=== PATIENT | female | born 1955 | race Caucasian/White ===

== ENCOUNTER 2017-09-30 13:13 | Inpatient (IN) | payer OTHER, SELFPAY ==
[2017-08-14 13:04] VITALS: BMI 24.0
[2017-09-30] VITALS (12 sets, daily range): BP systolic 97–142; BP diastolic 49–79; PULSE 101–130; RESP 16–20; TEMP 36.9–39.2; O2SAT 92–96; BMI 25.7; BMI 25.3
--- NOTE | 2017-09-30 13:22 | EKG12_ITS ---
Test Reason : SOB Blood Pressure : / mmHG Vent. Rate : 112 BPM Atrial Rate : 112 BPM P-R Int : 128 ms QRS Dur : 086 ms QT Int : 304 ms P-R-T Axes : 070 065 075 degrees QTc Int : 414 ms Sinus tachycardia Otherwise normal ECG Confirmed by DUANE SMITH ([id number]), development editor GREGORIA ALEMAN ([id number]) on 10/03/2017 11:57:28 AM Referred By: LEIGHANN Confirmed By:DUANE SMITH
--- NOTE | 2017-09-30 13:35 | ED.DCSUM_ITS ---
- ER Visit Summary Date of Service: 09/30/17 Chief Complaint: Bilateral pneumonia, influenza A, dehydration History of Present Illness: The patient is a 62 F who was seen by Porsche alatorre today and had a positive influenza A rapid screen, chest x-ray that reveals a right middle lobe infiltrate and a lingular infiltrate. She also was tachycardic and received 1.5 L of normal saline. Patient states initial illness started in August. Last week she completed a 5 day course of azithromycin. She now reports fever, chills, myalgias and arthralgias that started yesterday. She does complain of headache without photophobia sips of her neck. She denies rash. She denies any nausea, vomiting or diarrhea. She denies dysuria, frequency, urgency or hematuria. She does have a history of asthma. She has been on prednisone the last 3-6 months. She has been using her rescue inhaler and nebulizer more frequently than normal. Physical Examination: Patient is tachycardic febrile and tachypnic on my exam. Pulse ox at rest is 92% on room air. She appears ill. HEENT is remarkable for mild clear nasal congestion and boggy nasal mucosa. TMs are pearly white phlegm X noted. Posterior pharynx minimal erythema without exudate. Uvula midline. Trachea midline without stridor. Heart is rapid and regular without murmur, gallop or rub. Lungs reveal wheezing bilaterally with increased x-ray phase and abnormal breath sounds on the right anteriorly. Abdomen is soft nontender. There is no CVA tenderness noted. There is no asymmetry, swelling, discoloration, leg vein distention, palpable cords or tenderness along the distribution of the deep venous system. Neuro exam is nonfocal. Test Results: Outpatient blood work reveals a normal white count and electrolyte panel. Rapid influenza screen is positive for type a influenza. Chest x-ray reveals a right middle lobe infiltrate and a lingular infiltrate. Lactate is 0.9. Emergency Department Course and Treatment: Patient meets sepsis criteria and since she has bilateral infiltrates meets criteria for full admission. She will receive a DuoNeb followed by multiple albuterol treatments. Since she has received prednisone the last 3-6 months she was given a dose of Solu-Medrol, 125 mg IV push. 650 mg of Tylenol for her fever. Blood cultures were ordered as well as lactate. Based on her allergies she was treated with 1 g of Rocephin and 500 mg of azithromycin. She also received Tamiflu 75 mg. Treatment Plan: Workup for sepsis and antibiotics for bilateral infiltrate. Because she is wheezing with history of asthma she was treated with the aerosols. Disposition: Admit to the hospital Impression: 1. Bilobar pneumonia, right middle lobe and lingula 2. Exacerbation of asthma secondary #1 3. Sepsis 4. Sinus tachycardia documented on monitor 5. Influenza type A This note was generated with MadeiraMadeira dictation software. It may contain incorrect words, spelling, and punctuation that were not noted in review of the chart prior to signing ED Disposition - Plan for ED Patient: Chief Complaint: Shortness of Breath Referrals: Genesis Baldwin DO [Primary Care Provider] -
[2017-09-30] MEDS: Albuterol 2.5 MG/3 ML VIAL.NEB. INHALATION ×3 (13:38)
[2017-09-30] MEDS: Ipratropium/Albuterol Sulfate 3 ML AMPUL.NEB INHALATION ×3 (13:38→23:14)
[2017-09-30] MEDS: Oseltamivir Phosphate 75 MG Capsule PO ×2 (13:47→21:17)
[2017-09-30] MEDS: MethylPREDNISolone 125 MG/2 ML Vial IV (13:47)
[2017-09-30] MEDS: Acetaminophen 325 MG Tablet 650 MG PO (13:53)
[2017-09-30 14:14] LABS: Lactic Acid 0.9 mmol/L (0.4-2.0)
[2017-09-30] MEDS: Ceftriaxone 1 GM/50 ML BAG IV (14:18)
--- NOTE | 2017-09-30 15:26 | HP.PCM_ITS ---
Problem List (1) Sepsis Status: Acute (2) Influenza Status: Acute (3) Aromatase inhibitor use Status: Chronic (4) Cancer of left female breast Status: Chronic Qualifiers: (5) Asthma Status: Chronic Qualifiers: (6) Osteoporosis Status: Chronic History of Present Illness Date of Admission: 09/30/17 Chief Complaint: Shortness of breath, myalgias. The patient is a 62 year old F [] Over the past month patient has been treated for infections, pulmonary with antibiotics and prednisone. Patient was doing well up until yesterday morning where she had had fevers of 101 Fahrenheit, chills, myalgias, headache. Sore primary care doctor and was tested positive for the flu. Patient was sent to the emergency room as patient was having also dyspnea on exertion. Patient was tachycardic in the emergency room. Patient had chest x-ray that was concerning for pneumonia and patient was started on Rocephin, azithromycin, received Tamiflu, aerosols and Solu-Medrol. Patient stated that she had the flu shot this year. Past Medical History Past Medical History (Chronic Problems): Chronic Problems (Last Reviewed 09/18/17 @ 08:33 by Perla Rojo) Aromatase inhibitor use (Chronic) Cancer of left female breast (Chronic) Osteoporosis (Chronic) Asthma (Chronic) Allergies ampicillin Allergy (Verified 09/30/17 13:16) Other cefaclor [From Ceclor] Allergy (Verified 09/30/17 13:16) Other ciprofloxacin [From Cipro] Allergy (Verified 09/30/17 13:16) Anaphylaxis ciprofloxacin HCl [From Cipro] Allergy (Verified 09/30/17 13:16) Anaphylaxis Penicillins Allergy (Verified 09/30/17 13:16) Other shellfish derived Allergy (Verified 09/30/17 13:16) Anaphylaxis Home Medications: Ambulatory Orders Medication Instructions Recorded Dexlansoprazole [Dexilant] 30 mg PO PRN PRN 04/27/16 Montelukast Sodium [Singulair] 10 mg PO QHS 04/27/16 Paroxetine HCl [Paxil] 20 mg PO DAILY 04/27/16 Albuterol Inhaler [Ventolin Hfa] 1 - 2 puff INHALATION Q4H PRN PRN 07/01/17 Denosumab [Prolia] 60 mg SQ QMONTH 07/01/17 Fluticasone 0.05% [Flonase Nasal 1 spray NASAL BID 07/01/17 [place]] Bifidobacterium Infantis [Align] 4 mg PO DAILY 07/24/17 Calcium Phosphate Trib/Vit D3 1 ea PO DAILY 07/24/17 [Citracal + D3 Gummies] Cetirizine HCl [Zyrtec] 10 mg PO DAILY 07/24/17 Anastrozole [Arimidex] 1 mg PO DAILY 09/30/17 Aspirin [Aspirin, Baby] 81 mg PO DAILY@0800 09/30/17 Budesonide/Formoterol 80-4.5 2 puff INHALATION BID 09/30/17 [Symbicort 80-4.5 Mcg Inhaler] Ezetimibe [Zetia] 10 mg PO DAILY 09/30/17 Prednisone [Prednisone] 09/30/17 Surgical History: - - Left lumpectomy Psychiatric History: No pertinent psych hx Smoking Status: Never smoker - *Family History Maternal History Items: Clotting Disorder, - - Venous thromboembolic disease Sibling History Items: Clotting Disorder, - - Venous thromboembolic disease in her sister Review of Systems Constitutional: Reports: Chills, Fever, Malaise, Weakness Eyes: Denies: Blurred vision, Double vision HEENT: Reports: Ear Pain, Head Aches, Sinus Congestion Cardiovascular: Denies: Chest Pain, Palpitations Respiratory: Reports: Shortness of breath upon exertion. Denies: Cough Gastrointestinal: Denies: Abdominal Pain, Nausea, Vomiting Genitourinary: Denies: Dysuria Musculoskeletal: Denies: Joint Pain, Joint Tenderness Skin: Denies: Rash, Wounds Neurological: Denies: Numbness, Tingling, Focal weakness Psychiatric: Denies: Anxiety, Depression, Homicidal Ideations, Suicidal Ideations Hematologic/ Lymphatic: Denies: Easy Bruising, Easy Bleeding, Hx of blood clot VTE Information - Inpt Only VTE Present on Admission: No VTE Pharm Prophylaxis ordered?: Yes Patient Problems: Active and Suspected Problems (Last Reviewed 09/18/17 @ 08:33 by Perla Rojo) Sepsis (Acute) Influenza (Acute) - Physical Exam General: Alert, Cooperative, No apparent distress HEENT: Atraumatic, Normocephalic, - - No sinus tenderness Oral: Moist Mucosa, No Gingival or Mucosal Lesions/ Ulcerations Neck: No Nodes, Thyroid Normal Size and Texture Lungs: Clear to auscultation, Normal air movement, No rhonchi, No wheeze Cardiovascular: Regular rate, Regular Rhythm, Normal S1, Normal S2, No murmurs Abdomen: Bowel Sounds Present, Soft, Non Tender, Non-Distended, No Hepato- splenomegaly Extremities: No edema, No Calf Tenderness Skin: No rashes, No breakdown Musculoskeletal: No Tenderness to Palpation of Joints or Extremities, No Muscle Wasting Neurological: Muscle tone normal, Gait narrow based and stable Psych/Mental Status: Normal Affect, Appropriate Vital Signs Temp Pulse Resp BP Pulse Ox 39.2 C H 124 H 20 H 106/79 93 09/30/17 15:02 09/30/17 15:02 09/30/17 15:02 09/30/17 15:02 09/30/17 15:02 Oxygen Delivery Method Room Air Weight: 67.9 kg Body Mass Index (BMI) 25.7 Laboratory Tests Past 24 Hrs 09/30/17 13:41 Lactic Acid 0.9 Chest x-ray personally reviewed and showed no infiltrate on my evaluation. Some of the chest x-ray from August of last year. Earlier lab work White count 7.1, hemoglobin 13.2. Platelets 171. Sodium 138, potassium 4.2, creatinine 0.72. Assessment/Plan Active and Suspected Problems (Last Reviewed 09/18/17 @ 08:33 by Perla Rojo) Sepsis (Acute) Influenza (Acute) 1. Sepsis Most likely due to the influenza the patient has but there is concern for infiltrate on the chest x-ray though I do not clearly see that and patient's exam is pretty unremarkable for pneumonia. Patient be treated empirically for pneumonia but will follow-up cultures, blood cultures were drawn in the emergency room but I will send a sputum culture and strep antigens and Legionella antigens. If respiratory workup comes back unremarkable then would recommend discontinue the antibiotics and continue the Tamiflu. Patient receive IV fluids. Patient is not in severe sepsis or septic shock. 2. Influenza I do not have tight but I presume it is A. Continue with Tamiflu for a total of 5 days. Patient received a dose in the emergency room. 3. Asthma No audible wheezing at this time. Patient did receive Solu-Medrol in the emergency room. Allergies have the patient continue with the 40 mg daily of prednisone for 5 days. Bronchodilators 4. Breast cancer Status post lumpectomy Follow-up with Dr. Rivas Patient on aromatase inhibitor. 5. DVT proph: LMWH Code Visit Inpatient E&M: 07110 Init Hosp L3
[2017-09-30] MEDS: 0.9% Normal Saline 1,000 ML 150 ML IV (16:55)
[2017-09-30] MEDS: Ondansetron 4 MG/2 ML Vial IV (17:01)
[2017-09-30] MEDS: Budesonide Respules 0.5 MG/2 ML AMPUL.NEB. INHALATION (19:50)
[2017-09-30] MEDS: Fluticasone 0.05% 1 SPRAY NASAL.SRY NASAL (21:16)
[2017-09-30] MEDS: guaiFENesin 600 MG Tablet 1200 MG PO (21:17)
[2017-09-30] MEDS: Montelukast 10 MG Tablet PO (21:17)
[2017-09-30] MEDS: CLARIFY ORDER 1 EACH NOTE (21:20)
[2017-10-01] VITALS (11 sets, daily range): BP systolic 94–114; BP diastolic 52–92; PULSE 83–100; RESP 18–24; TEMP 36.6–37.4; O2SAT 96–98
[2017-10-01] MEDS: 0.9% Normal Saline 1,000 ML 150 ML IV
[2017-10-01] MEDS: Ipratropium/Albuterol Sulfate 3 ML AMPUL.NEB INHALATION ×5 (03:29→22:50)
[2017-10-01 07:10] LABS: Absolute Lymphocyte Count 0.49 X10^3/ul (0.83-4.51); Absolute Neutrophil Count 4.5 X10^3/uL (2.0-7.7); Hematocrit 33.3 % (37-47); Hemoglobin 10.8 g/dl (12.0-15.0); Lymphocyte # 0.49 X10^3/ul (4.0); Lymphocyte % 8.2 % (19-41); Mean Corp Hgb Conc 32.4 g/gl (32-36); Mean Corpuscular Hgb 29.7 pg (27.0-32.0); Mean Corpuscular Volume 91.5 fL (81-99); Mean Platelet Vol. 10.2 fl (6.2-12.0); Monocyte# 0.92 X10^3/uL; Monocyte% 15.4 % (0-10); Neutrophil # 4.54 X10^3/uL (2.7-7.7); Neutrophil % 76.2 % (47-70); Platelet Count 134 K/mm3 (150-450); RBC Distribution Width CV 14.5 % (11.6-14.6); RBC Distribution Width SD 48.8 fl (35.1-43.9); Red Blood Count 3.64 M/mm3 (4.2-5.4)
[2017-10-01 07:11] LABS: Differential Indicated SCAN CRITERIA MET; POSITIVE COUNT NO; POSITIVE DIFFERENTIAL YES; POSITIVE MORPHOLOGY NO
[2017-10-01 07:19] LABS: Anion Gap 10 (5-15); BUN 10 mg/dL (7-18); BUN/Creat Ratio 14.9 RATIO (10-20); Calcium,Total 7.4 mg/dL (8.5-10.1); Chloride 115 mmol/L (98-107); Creatinine, Serum 0.67 mg/dL (0.55-1.02); EST Glomerular Filtration Rate 94 mL/min (>60); Est Glom Filt Rate - Afr Amer 113 mL/min (>60); Estimated Creatinine Clearance 73.25 ml/min; Glucose 104 mg/dL (70-110); Potassium 3.5 mmol/L (3.5-5.1); Sodium Level 144 mmol/L (136-145)
[2017-10-01] MEDS: Budesonide Respules 0.5 MG/2 ML AMPUL.NEB. INHALATION (07:28)
[2017-10-01] MEDS: guaiFENesin 600 MG Tablet 1200 MG PO ×2 (08:04→20:01)
[2017-10-01] MEDS: Aspirin 81 MG TAB.CHEW PO (08:04)
[2017-10-01] MEDS: Oseltamivir Phosphate 75 MG Capsule PO ×2 (08:04→20:02)
[2017-10-01] MEDS: Anastrozole 1 MG Tablet PO (08:05)
[2017-10-01] MEDS: Enoxaparin 40 MG/0.4 ML Syringe SC (08:05)
[2017-10-01] MEDS: Loratadine 10 MG Tablet PO (08:05)
[2017-10-01] MEDS: Ezetimibe 10 MG Tablet PO (08:05)
[2017-10-01] MEDS: Calcium Carb/Vitamin D 1 TABLET Tablet PO (08:05)
[2017-10-01] MEDS: Fluticasone 0.05% 1 SPRAY NASAL.SRY NASAL ×2 (08:06→20:02)
[2017-10-01 08:11] LABS: Allen Test POS; Base Excess -2 mmol/L (-2 to +2); Bicarbonate 21.4 mmol/L (22-26); Blood Gas Specimen Type ART; O2 Delivery Device Room Air; PO2 68 mmHG (75-100); SITE R Brachial; SO2 95 % (95-99); Time Given 810; Total Carbon Dioxide 22 mmol/L; pCO2 28.2 mmHg (35-45); pH 7.49 (7.35-7.45)
[2017-10-01 08:28] LABS: AST(SGOT) 18 U/L (15-37); Alanine Aminotransfer ALT/SGPT 25 U/L (12-78); Albumin, Serum 2.5 g/dL (3.4-5.0); Alkaline Phosphatase 40 U/L (45-117); Bilirubin, Direct < 0.05 mg/dL (0.00-0.30); Magnesium 2.1 mg/dL (1.6-2.6); Phosphorus 2.1 mg/dL (2.5-4.9); Protein, Total 5.5 g/dL (6.4-8.2)
[2017-10-01] MEDS: Ceftriaxone 1 GM/50 ML BAG IV (10:36)
[2017-10-01] MEDS: 0.9% NaCl IVPB Med Flush (250 mL) 15 ML IV (10:36)
--- NOTE | 2017-10-01 10:46 | PCM.PROGNOTE ---
Patient Problems: Active and Suspected Problems (Last Reviewed 09/18/17 @ 08:33 by Perla Rojo) Sepsis (Acute) Influenza (Acute) Subjective: Patient is a 62-year-old female with a past medical history of breast cancer on aromatase, asthma and osteoporosis who was sent to the hospital by her primary care physician after she tested positive for influenza in the office. She complained of fevers, shaking chills, myalgias, arthralgias and headache. Her symptoms started on 09/29/2017. Her cough is dry/nonproductive. Significant lab in the emergency room was a white blood cell count of 6.0 with 76% neutrophils. Hemoglobin was decreased at 10.8 and platelets were low at 134,000. Serum bicarb was low at 19 and phosphorus was low at 2.1. Lactic acid was normal. LFTs are unremarkable. Chest x-ray showed bilateral patchy infiltrates. He was admitted to the hospital with a diagnosis of influenza and possible superimposed bacterial pneumonia. She was started on Tamiflu, Rocephin and azithromycin. T-max was 102.6?F on 09/20/2017. Current temp is 99.1. Vital signs are stable. ABG done on room air shows a pH of 7.49, PCO2 of 28 and a oxygen saturation of 95%. Patient was tachypneic at the time of the ABG. She was placed on 2 L of nasal O2 and her shortness of breath has improved. He denies nausea, vomiting, diarrhea, abdominal pain today. She did have emesis on 09/30/2017. Streptococcal and legionella antigens were negative. - Physical Exam General: Oriented x3, Cooperative, Well developed, Well nourished, - - Appears very fatigued and looks ill HEENT: Atraumatic, PERRLA, EOMI, Normocephalic Oral: Dry Mucosa Neck: Supple, No JVD, No Nuchal Rigidity, Trachea Midline Lungs: - - Coarse crackles in both lung bases rare expiratory wheeze Cardiovascular: Regular rate, Regular Rhythm, Normal S1, Normal S2, No murmurs, No rub noted, No Gallop Abdomen: Bowel Sounds Present, Soft, Non Tender, Non-Distended Extremities: No clubbing, No cyanosis, No edema Skin: No rashes Neurological: Cranial nerves II-XII grossly intact, Neuro grossly intact Psych/Mental Status: Normal Affect, Appropriate Vital Signs Temp Pulse Resp BP Pulse Ox 99.1 F 90 18 100/52 L 98 10/01/17 10:33 10/01/17 10:33 10/01/17 10:33 10/01/17 10:33 10/01/17 10:33 Oxygen Flow Rate 2 Oxygen Delivery Method Nasal Cannula Weight: 147 lb 11.2 oz Body Mass Index (BMI) 25.3 Intake and Output for Last 24 Hours 09/29/17 09/30/17 10/01/17 23:59 23:59 23:59 Intake Total 1999 Balance 1999 Microbiology Past 72 Hours 09/30/17 19:30 Legionella Antigen - Final Urine, Clean Catch 09/30/17 19:30 Streptococcus pneumoniae Antigen (M - Final Urine, Clean Catch Laboratory Tests Past 24 Hrs 10/01/17 10/01/17 10/01/17 06:30 06:30 06:30 WBC 6.0 RBC 3.64 L Hgb 10.8 L Hct 33.3 L MCV 91.5 MCH 29.7 MCHC 32.4 RDW 14.5 RDW Differential 48.8 H Plt Count 134 L MPV 10.2 Immature Gran % (Auto) 0.200 Neut % (Auto) 76.2 H Lymph % (Auto) 8.2 L Osborne % (Auto) 15.4 H Eos % (Auto) 0.0 Baso % (Auto) 0.0 Absolute Neuts (auto) 4.5 Absolute Lymphs (auto) 0.49 L Total Counted Not Reportable Specimen Type Sample Site pH Bicarbonate Actual POC Total CO2 Base Excess O2 Saturation ABG pCO2 ABG pO2 Timothy Test O2 Delivery Device Blood Gas Notified Whom Blood Gas Notified Time Sodium 144 Potassium 3.5 Chloride 115 H Carbon Dioxide 19.0 L Anion Gap 10 BUN 10 Creatinine 0.67 Estim Creat Clear Calc 73.25 Est GFR (MDRD) Af Amer 113 Est GFR (MDRD) Non-Af 94 BUN/Creatinine Ratio 14.9 Glucose 104 Calcium 7.4 L Phosphorus 2.1 L Magnesium 2.1 Total Bilirubin 0.10 L Direct Bilirubin < 0.05 AST 18 ALT 25 Alkaline Phosphatase 40 L Total Protein 5.5 L Albumin 2.5 L Globulin 3.0 10/01/17 08:08 WBC RBC Hgb Hct MCV MCH MCHC RDW RDW Differential Plt Count MPV Immature Gran % (Auto) Neut % (Auto) Lymph % (Auto) Osborne % (Auto) Eos % (Auto) Baso % (Auto) Absolute Neuts (auto) Absolute Lymphs (auto) Total Counted Specimen Type ART Sample Site R Brachial pH 7.49 H Bicarbonate Actual 21.4 L POC Total CO2 22 Base Excess -2 O2 Saturation 95 ABG pCO2 28.2 L ABG pO2 68 L Timothy Test POS O2 Delivery Device Room Air Blood Gas Notified Whom HOSP Blood Gas Notified Time 810 Sodium Potassium Chloride Carbon Dioxide Anion Gap BUN Creatinine Estim Creat Clear Calc Est GFR (MDRD) Af Amer Est GFR (MDRD) Non-Af BUN/Creatinine Ratio Glucose Calcium Phosphorus Magnesium Total Bilirubin Direct Bilirubin AST ALT Alkaline Phosphatase Total Protein Albumin Globulin Assessment/Plan Active and Suspected Problems (Last Reviewed 09/18/17 @ 08:33 by Perla Rojo) Sepsis (Acute) Influenza (Acute) Impressions 1. Influenza A with viral pneumonia 2. Respiratory alkalosis secondary to tachypnea....... tachypnea resolved with application of oxygen 3. Acute exacerbation asthma 4. Hypophosphatemia 5. History of breast cancer-on an aromatase 6. Anemia - acute - possibly due to IV fluids given in the ER. 7. Thrombocytopenia-likely secondary to acute viral illness Continue Tamiflu Discontinue Rocephin as this is likely a viral pneumonia. continue Azithromycin for 3 doses Continue prednisone 40 mg daily and aerosolized bronchodilators. Supplement phosphorus Continue IV fluids until her appetite improves Recheck lab in the a.m. Will need an ambulatory pulse ox on room air prior to discharge Code Visit Inpatient E&M: 69334 Subs Hosp L2
[2017-10-01] MEDS: Lactated Ringers 1,000 ML 75 ML IV (11:37)
--- NOTE | 2017-10-01 12:00 | CASEMGMT ---
Face to Face with patient for initial transition planning/care coordination assessment. RN CM introduced self and role at [facility], pt voices understanding and consents to assessment at this time. Pt A/O x4 at this time and answers all questions appropriately at this time. Care providers, pharmacy, and demographics verified. See attached link. Advised pt to ask for CM if any further questions/concerns/needs arise, voices understanding. PLAN: Home with spouse.
--- NOTE | 2017-10-01 14:42 | CHAPLAIN ---
Type of Pastoral Visit _x__ Initial Visit ___ Follow-up Visit ___ On-call Visit ___ General Patient Visit ___ Spiritual Assessment ___ Family Conference ___ Bereavement ___ Rapid Response ___ Code Blue ___ Other (describe below) Pastoral Care Referral From _x__ Patient ___ Family ___ Nurse ___ Physician ___ Seismograph Supervisor ___ Spray Cementer ___ Other (describe below) Sacrament/Intervention _x__ Active listening ___ Anointing ___ Mandaeism ___ Bereavement ___ Communion ___ Jamila exploration ___ ___ Life review _x__ Prayer ___ Reconciliation ___ Sacrament of Sick ___ Supportive presence ___ Wedding ___ Other (describe below) Pastoral Comments
--- NOTE | 2017-10-01 15:13 | CPS ---
PEP THERAPY DONE ON OWN
[2017-10-01] MEDS: Albuterol 2.5 MG/3 ML VIAL.NEB. INHALATION (17:41)
--- NOTE | 2017-10-01 19:20 | EKG12_ITS ---
Test Reason : CP Blood Pressure : / mmHG Vent. Rate : 083 BPM Atrial Rate : 083 BPM P-R Int : 134 ms QRS Dur : 084 ms QT Int : 360 ms P-R-T Axes : 063 057 053 degrees QTc Int : 423 ms Normal sinus rhythm Normal ECG When compared with ECG of 30-SEP-2017 13:39, MANUAL COMPARISON REQUIRED, DATA IS UNCONFIRMED Confirmed by DUANE SMITH ([id number]), sports editor GREGORIA ALEMAN ([id number]) on 10/10/2017 1:40:35 PM Referred By: DR CHRISTIANSON Confirmed By:DUANE SMITH
[2017-10-01] MEDS: Acetaminophen 325 MG Tablet 650 MG PO (20:01)
[2017-10-01] MEDS: Magnesium Hydroxide 30 ML UDC PO (20:01)
[2017-10-01] MEDS: Montelukast 10 MG Tablet PO (20:02)
[2017-10-02] VITALS (8 sets, daily range): BP systolic 95–100; BP diastolic 57–63; PULSE 76–95; RESP 16–18; TEMP 36.6–36.7; O2SAT 0–100
[2017-10-02] MEDS: Lactated Ringers 1,000 ML 75 ML IV (01:27)
--- NOTE | 2017-10-02 01:41 | NURSING ---
OXYGEN LEVEL WHILE WALKING AND AFTER WAS 97% ON RA
[2017-10-02 06:43] LABS: Hematocrit 32.2 % (37-47); Hemoglobin 10.5 g/dl (12.0-15.0)
[2017-10-02 07:04] LABS: Anion Gap 9 (5-15); BUN 13 mg/dL (7-18); BUN/Creat Ratio 25.9 RATIO (10-20); Calcium,Total 7.8 mg/dL (8.5-10.1); Chloride 112 mmol/L (98-107); EST Glomerular Filtration Rate 131 mL/min (>60); Est Glom Filt Rate - Afr Amer 159 mL/min (>60); Estimated Creatinine Clearance 98.16 ml/min; Glucose 83 mg/dL (70-110); Phosphorus 3.1 mg/dL (2.5-4.9); Potassium 4.3 mmol/L (3.5-5.1); Sodium Level 145 mmol/L (136-145)
[2017-10-02] MEDS: Ipratropium/Albuterol Sulfate 3 ML AMPUL.NEB INHALATION ×3 (07:05→15:36)
[2017-10-02] MEDS: Budesonide Respules 0.5 MG/2 ML AMPUL.NEB. INHALATION (07:05)
[2017-10-02] MEDS: Calcium Carb/Vitamin D 1 TABLET Tablet PO (08:04)
[2017-10-02] MEDS: Aspirin 81 MG TAB.CHEW PO (08:04)
--- NOTE | 2017-10-02 11:40 | PCM.DC ---
- Discharge Diagnoses Current Active Problems: Current Active and Chronic Problems (Last Reviewed 09/18/17 @ 08:33 by Perla Rojo) Sepsis (Acute) Influenza (Acute) You will use the following diet at home:: Other - Resume previous diet Your food should be the consistency of: Regular Your liquids should be the consistency of: Regular/Thin Discharge Activity: Return to Normal Activity - gradually increase activity as tolerated. You have viral pneumonia and the FLU and an exacerbation of asthma.......get plenty of rest and make sure to maintain good hydration, - - Avoid exposure to any strong smells such as bleach, cleaning products, strong colognes or perfumes, paint fumes and smoke of any kind. Avoid sudden exposure to cold air because this can cause bronchospasm. You may want to cover your mouth when you go outside in the winter. Avoid exposure to anyone who is sick with a cough or sore throat. Call your doctor if you observe: Fever of 101 or Higher, Shortness of breath, Dizziness, Fainting spells, - - If you have any change in the cough.....if it becomes productive, if you are coughing up blood, if it increases call your PCP or return to the ER Additional Instructions: 1. I gave you a RX for an albuterol inhaler. I would use 2 puffs every 4 hours while awake for the next 3-4 days and then use as needed after that. Continue the Symbicort inhaler twice a day. Pending Tests on Discharge: blood culture Allergies/Adverse Reactions: Allergies ampicillin Allergy (Verified 09/30/17 13:16) Other cefaclor [From Ceclor] Allergy (Verified 09/30/17 13:16) Other ciprofloxacin [From Cipro] Allergy (Verified 09/30/17 13:16) Anaphylaxis ciprofloxacin HCl [From Cipro] Allergy (Verified 09/30/17 13:16) Anaphylaxis Penicillins Allergy (Verified 09/30/17 13:16) Other shellfish derived Allergy (Verified 09/30/17 13:16) Anaphylaxis Medications to take at Discharge Dexlansoprazole [Dexilant] 30 mg PO PRN PRN 04/27/16 Montelukast Sodium [Singulair] 10 mg PO QHS 04/27/16 Paroxetine HCl [Paxil] 20 mg PO DAILY 08/12/16 Albuterol Inhaler [Ventolin Hfa] 1 - 2 puff INHALATION Q4H PRN PRN 07/01/17 Denosumab [Prolia] 60 mg SQ QMONTH MDD due in November [id number] 07/01/17 Fluticasone 0.05% [Flonase Nasal [place]] 1 spray NASAL BID 07/01/17 Bifidobacterium Infantis [Align] 4 mg PO DAILY 07/24/17 Calcium Phosphate Trib/Vit D3 [Citracal + D3 Gummies] 1 ea PO DAILY 07/24/17 Cetirizine HCl [Zyrtec] 10 mg PO DAILY 07/24/17 Anastrozole [Arimidex] 1 mg PO DAILY 09/30/17 Aspirin [Aspirin, Baby] 81 mg PO DAILY@0800 09/30/17 Budesonide/Formoterol 80-4.5 [Symbicort 80-4.5 Mcg Inhaler] 2 puff INHALATION BID 09/30/17 Ezetimibe [Zetia] 10 mg PO DAILY 09/30/17 Acetaminophen [Tylenol Tablet] 650 mg PO Q4H PRN PRN tablet 10/02/17 Albuterol IH (ProAir) [Proair Hfa] 2 puff INHALATION Q4H PRN PRN #1 inhaler 10/02/17 Azithromycin [Zithromax] 500 mg PO DAILY #1 tab 10/02/17 Guaifenesin [Mucinex] 1,200 mg PO BID #20 tab 10/02/17 Oseltamivir Phosphate [Tamiflu] 75 mg PO BID #6 cap 10/02/17 Prednisone 10 mg PO UD #30 tablet 10/02/17 The following prescriptions were given: Albuterol IH (ProAir) [Proair Hfa] 2 puff INHALATION Q4H PRN PRN #1 inhaler PRN Reason: Wheezing Azithromycin [Zithromax] 500 mg PO DAILY #1 tab Prednisone 10 mg PO UD #30 tablet Guaifenesin [Mucinex] 1,200 mg PO BID #20 tab Oseltamivir Phosphate [Tamiflu] 75 mg PO BID #6 cap Primary Care Physician: Genesis Baldwin DO [Primary Care Provider] - Please follow up with your Primary Care Physician in: 7-10 days Proposed Discharge Date: 10/02/17
--- NOTE | 2017-10-02 11:48 | CPS ---
Pt using PEP on own.
--- NOTE | 2017-10-02 11:58 | DS.PCM_ITS ---
Discharge Date and Diagnosis Date of Admission: 09/30/17 Date of Discharge: 10/02/17 - Primary Discharge Diagnosis Active and Suspected Problems (Last Reviewed 09/18/17 @ 08:33 by Perla Rojo) Influenza (Acute) Viral pneumonia (Acute) Acute asthma exacerbation (Acute) Acute respiratory alkalosis (Acute) Thrombocytopenia (Acute) Hypophosphatemia (Acute) - Secondary Discharge Diagnosis Chronic Problems (Last Reviewed 09/18/17 @ 08:33 by Perla Rojo) Aromatase inhibitor use (Chronic) Cancer of left female breast (Chronic) Osteoporosis (Chronic) Asthma (Chronic) Hospital Course and Treatment Imaging Results: Laboratory Tests 09/30/17 10/01/17 10/01/17 13:41 06:30 06:30 WBC 6.0 RBC 3.64 L Hgb 10.8 L Hct 33.3 L MCV 91.5 MCH 29.7 MCHC 32.4 RDW 14.5 RDW Differential 48.8 H Plt Count 134 L MPV 10.2 Immature Gran % (Auto) 0.200 Neut % (Auto) 76.2 H Lymph % (Auto) 8.2 L Evangeline % (Auto) 15.4 H Eos % (Auto) 0.0 Baso % (Auto) 0.0 Absolute Neuts (auto) 4.5 Absolute Lymphs (auto) 0.49 L Total Counted Not Reportable Specimen Type Sample Site pH Bicarbonate Actual POC Total CO2 Base Excess O2 Saturation ABG pCO2 ABG pO2 Timothy Test O2 Delivery Device Blood Gas Notified Whom Blood Gas Notified Time Sodium 144 Potassium 3.5 Chloride 115 H Carbon Dioxide 19.0 L Anion Gap 10 BUN 10 Creatinine 0.67 Estim Creat Clear Calc 73.25 Est GFR (MDRD) Af Amer 113 Est GFR (MDRD) Non-Af 94 BUN/Creatinine Ratio 14.9 Glucose 104 Lactic Acid 0.9 Calcium 7.4 L Phosphorus Magnesium Total Bilirubin Direct Bilirubin AST ALT Alkaline Phosphatase Total Protein Albumin Globulin 10/01/17 10/01/17 10/02/17 06:30 08:08 06:28 WBC RBC Hgb 10.5 L Hct 32.2 L MCV MCH MCHC RDW RDW Differential Plt Count MPV Immature Gran % (Auto) Neut % (Auto) Lymph % (Auto) Evangeline % (Auto) Eos % (Auto) Baso % (Auto) Absolute Neuts (auto) Absolute Lymphs (auto) Total Counted Specimen Type ART Sample Site R Brachial pH 7.49 H Bicarbonate Actual 21.4 L POC Total CO2 22 Base Excess -2 O2 Saturation 95 ABG pCO2 28.2 L ABG pO2 68 L Timothy Test POS O2 Delivery Device Room Air Blood Gas Notified Whom [facility] Blood Gas Notified Time 810 Sodium Potassium Chloride Carbon Dioxide Anion Gap BUN Creatinine Estim Creat Clear Calc Est GFR (MDRD) Af Amer Est GFR (MDRD) Non-Af BUN/Creatinine Ratio Glucose Lactic Acid Calcium Phosphorus 2.1 L Magnesium 2.1 Total Bilirubin 0.10 L Direct Bilirubin < 0.05 AST 18 ALT 25 Alkaline Phosphatase 40 L Total Protein 5.5 L Albumin 2.5 L Globulin 3.0 10/02/17 06:28 WBC RBC Hgb Hct MCV MCH MCHC RDW RDW Differential Plt Count MPV Immature Gran % (Auto) Neut % (Auto) Lymph % (Auto) Evangeline % (Auto) Eos % (Auto) Baso % (Auto) Absolute Neuts (auto) Absolute Lymphs (auto) Total Counted Specimen Type Sample Site pH Bicarbonate Actual POC Total CO2 Base Excess O2 Saturation ABG pCO2 ABG pO2 Timothy Test O2 Delivery Device Blood Gas Notified Whom Blood Gas Notified Time Sodium 145 Potassium 4.3 Chloride 112 H Carbon Dioxide 24.0 Anion Gap 9 BUN 13 Creatinine 0.50 L Estim Creat Clear Calc 98.16 Est GFR (MDRD) Af Amer 159 Est GFR (MDRD) Non-Af 131 BUN/Creatinine Ratio 25.9 H Glucose 83 Lactic Acid Calcium 7.8 L Phosphorus 3.1 Magnesium Total Bilirubin Direct Bilirubin AST ALT Alkaline Phosphatase Total Protein Albumin Globulin none Operations: None Procedures: None Summary of Care Provided: Patient is a 62-year-old female with a past medical history of breast cancer on aromatase, asthma and osteoporosis who was sent to the hospital by her primary care physician after she tested positive for influenza in the office. She complained of fevers, shaking chills, myalgias, arthralgias and headache. Her symptoms started on 09/29/2017. Her cough is dry/nonproductive. Significant lab in the emergency room was a white blood cell count of 6.0 with 76% neutrophils. Hemoglobin was decreased at 10.8 and platelets were low at 134 ,000. Serum bicarb was low at 19 and phosphorus was low at 2.1. Lactic acid was normal. LFTs are unremarkable. Chest x-ray showed bilateral patchy infiltrates. She was admitted to the hospital with a diagnosis of influenza and possible superimposed bacterial pneumonia. She was started on Tamiflu, Rocephin and azithromycin. Streptococcal and Legionella antigens were negative. Blood cultures had no growth after 48 hours. The cough was dry and she was never able to produce a sputum. Rocephin was discontinued because the pneumonia was viral. She did receive 3 doses of Azithromycin. On the day of DC She felt better and ready to go home. The cough was decreased and she denied SOB. Oxygen saturation on room air was 97% and after ambulation on room air was 95%. She was not tachypneic and had no conversational dyspnea. Lungs had rare expiratory wheeze. She was discharged home with prescriptions for Tamiflu and 1 dose of azithromycin. She was also discharged home on a prednisone taper. She will resume her inhalers at home. She will follow-up with Dr. Baldwin in 7-10 days. This note was generated with [employer]it dictation software. It may contain incorrect words, spelling, and punctuation that were not noted in checking the note before signing. Discharge Activity: Return to Normal Activity - gradually increase activity as tolerated. You have viral pneumonia and the FLU and an exacerbation of asthma.......get plenty of rest and make sure to maintain good hydration, - - Avoid exposure to any strong smells such as bleach, cleaning products, strong colognes or perfumes, paint fumes and smoke of any kind. Avoid sudden exposure to cold air because this can cause bronchospasm. You may want to cover your mouth when you go outside in the winter. Avoid exposure to anyone who is sick with a cough or sore throat. Call your doctor if you observe: Fever of 101 or Higher, Shortness of breath, Dizziness, Fainting spells, - - If you have any change in the cough.....if it becomes productive, if you are coughing up blood, if it increases call your PCP or return to the ER Home Medications: Medications to take at Discharge Dexlansoprazole [Dexilant] 30 mg PO PRN PRN 04/27/16 Montelukast Sodium [Singulair] 10 mg PO QHS 04/27/16 Paroxetine HCl [Paxil] 20 mg PO DAILY 04/27/16 Albuterol Inhaler [Ventolin Hfa] 1 - 2 puff INHALATION Q4H PRN PRN 07/01/17 Denosumab [Prolia] 60 mg SQ QMONTH MDD due in November [id number] 07/01/17 Fluticasone 0.05% [Flonase Nasal [place]] 1 spray NASAL BID 07/01/17 Bifidobacterium Infantis [Align] 4 mg PO DAILY 07/24/17 Calcium Phosphate Trib/Vit D3 [Citracal + D3 Gummies] 1 ea PO DAILY 07/24/17 Cetirizine HCl [Zyrtec] 10 mg PO DAILY 07/24/17 Anastrozole [Arimidex] 1 mg PO DAILY 09/30/17 Aspirin [Aspirin, Baby] 81 mg PO DAILY@0800 09/30/17 Budesonide/Formoterol 80-4.5 [Symbicort 80-4.5 Mcg Inhaler] 2 puff INHALATION BID 09/30/17 Ezetimibe [Zetia] 10 mg PO DAILY 09/30/17 Acetaminophen [Tylenol Tablet] 650 mg PO Q4H PRN PRN tablet 10/02/17 Albuterol IH (ProAir) [Proair Hfa] 2 puff INHALATION Q4H PRN PRN #1 inhaler Azithromycin [Zithromax] 500 mg PO DAILY #1 tab 10/02/17 Guaifenesin [Mucinex] 1,200 mg PO BID #20 tab 10/02/17 Oseltamivir Phosphate [Tamiflu] 75 mg PO BID #6 cap 10/02/17 Prednisone 10 mg PO UD #30 tab 10/02/17 Following Prescrptions Were Given to Patient: Albuterol IH (ProAir) [Proair Hfa] 2 puff INHALATION Q4H PRN PRN #1 inhaler PRN Reason: Wheezing Azithromycin [Zithromax] 500 mg PO DAILY #1 tab Prednisone 10 mg PO UD #30 tab Guaifenesin [Mucinex] 1,200 mg PO BID #20 tab Oseltamivir Phosphate [Tamiflu] 75 mg PO BID #6 cap Primary Care Physician: Genesis Baldwin DO [Primary Care Provider] - Please follow up with your Primary Care Physician in: 7-10 days Disposition: Home Minutes spent on discharge:: 30 Meaningful Use Info Meaningful Use Diagnoses (Choose all that apply): None applicable Code Visit Inpatient E&M: 51419 Disch Hosp
[2017-10-02] MEDS: Anastrozole 1 MG Tablet PO (12:35)
[2017-10-02] MEDS: Oseltamivir Phosphate 75 MG Capsule PO (12:35)
[2017-10-02] MEDS: Loratadine 10 MG Tablet PO (12:35)
[2017-10-02] MEDS: guaiFENesin 600 MG Tablet 1200 MG PO (12:35)
[2017-10-02] MEDS: Ezetimibe 10 MG Tablet PO (12:36)
[2017-10-02] MEDS: Fluticasone 0.05% 1 SPRAY NASAL.SRY NASAL (12:37)
== END 2017-10-02 17:40 | disposition home or self-care (01) | DRG 194 ==
LOC: ED 13:29 → MS2 15:19
PROVIDERS: Emergency Provider Emergency Medicine; Family Provider Internal Medicine; PCP Internal Medicine; Visit Provider Internal Medicine
DX: J10.08 Influenza due to other identified influenza virus with other specified pneumonia (principal); E87.3 Alkalosis; D69.6 Thrombocytopenia, unspecified; J45.901 Unspecified asthma with (acute) exacerbation; E83.39 Other disorders of phosphorus metabolism; C50.912 Malignant neoplasm of unspecified site of left female breast; J12.9 Viral pneumonia, unspecified; M81.0 Age-related osteoporosis without current pathological fracture; Z79.811 Long term (current) use of aromatase inhibitors
CPT/HCPCS: 36415; 36600; 80048; 80076; 82803; 83605; 83735; 84100; 85014; 85018; 85025; 87040; 87449; 93005; 94640; 94667; 94668; 97802; 99283; J7030; J7050; J7120; A4216; J2405

== ENCOUNTER 2018-01-09 16:00 | Outpatient (RCR) | payer OTHER, SELFPAY ==
[2017-08-14 13:04] VITALS: BMI 24.0
--- NOTE | 2017-12-16 18:01 | HP.PTEVAL_ITS ---
Patient's Visit Information HEIKE ARROYO is a 62 year old F referred to Physical Therapy by MD NEO More with a diagnosis of L ant hip pain. Date of Evaluation: 12/16/17 Physical Therapist: Garrison Fair PT, - Visit Plan Frequency: 2x /Week Duration: 3 Weeks Plan: L Hip flexor stretching, DTR, stick roll out, bike, and HEP - Subjective Subjective: Pt reports she has had L ant hip pain for the past 7 months. Pt reports she had L MOMO with an anterior approach 1 year ago and wonders because of her limitations if this is why she has pain. Pt notes she also had cancer ( breast) in [facility] the same time period. Pt reports she had radiation and surgery and is doing well now. Pt notes some of the meds she is on as a result of that have side effects that cause joint pain. Pt reports she cant lift her L leg upwards, like to put on her boots, secondary to pain and weakness. pt has had recent xrays, which reveal no obvious cause for her pain. No T or N at this time. Occasional sleep diff secondary to pain - Pain L hip Pain Intensity (Out of 10): 1 Pain Intensity Range: 6 - Objective Palpation: Pt is very tender along the psoas major muscle of L hip. No obvious deformity. Neuro: B LE sensation is WNL to light touch. B pat tendon reflex= 2/ 3. MMT: B LE 5/5 throughout with the exception of L hip flex= 3-/5. ROM: B LE' s are WNL with the exception of L hip flex which is moderately limited - Goals Goal 1:: Decrease L hip pain x 50% to aid with IADL's Goal Time Frame: 2-4 Weeks Goal 2:: Increase L hip strength x 1 grade to aid with getting dressed Goal Time Frame: 2-4 Weeks Goal 3:: I with HEP Goal Time Frame: 2-4 Weeks - Rehabilitation Potential Physical Therapy Diagnosis: L ant hip pain and weakness secondary to L psoas muscle pathology Rehabilitation Potential: Good - Anticipated Interventions Patient/Client Instruction: Educate patient on: Condition, Plan of Care For the Purpose of:: To improve self management Therapeutic Exercise to Include: Flexibilty training, Passive ROM, Active ROM, Dynamic Lumbar Stabilization For the Purpose of:: To decrease pain, To increase ROM, To improve muscle performance and motor function Cryotherapy (ice pack, ice massage): Yes For the Purpose of:: To decrease pain Thank you for the opportunity to evaluate your patient. For Medicare and Medicare HMO plans, please review the plan of care and approve it. It will need to be FAXED BACK to us at [phone] for Medicare purposes. Please let me know if there are questions or concerns regarding this plan of care. Physician Signature: Date:
--- NOTE | 2018-02-12 14:58 | HP.PT.NRP ---
HP - Discharge Summary (1) - Patient Information HEIKE ARROYO was seen in my office for initial evaluation on 12/16/17. The following Plan of Care was established for this patient: Initial Frequency: 2x /Week Initial Duration: 3 Weeks - Anticipated Interventions Patient/Client Instruction: Educate patient on: Condition, Plan of Care For the Purpose of:: To improve self management Therapeutic Exercise to Include: Flexibilty training, Passive ROM, Active ROM, Dynamic Lumbar Stabilization For the Purpose of:: To decrease pain, To increase ROM, To improve muscle performance and motor function Cryotherapy (ice pack, ice massage): Yes For the Purpose of:: To decrease pain This patient was last seen in our office . Pertinent comments regarding their Physical therapy will appear below: Pt was last treated on the date of 01/09/18 for her L ant hip pain. Pt has not returned through todays date, and is therefore discontinued at this time. At this point I will be discontinuing this patient from physical therapy. I would be happy to see this patient again in the future if found appropriate by the physician. Thank you! Garrison Fair, PT,
== END 2018-01-09 19:00 | disposition home or self-care (01) ==
LOC: PT 16:00
PROVIDERS: Family Provider Internal Medicine; PCP Internal Medicine; Visit Provider Orthopaedic Surgery
DX: Z47.1 Aftercare following joint replacement surgery (principal)
CPT/HCPCS: 97110; 97140; 97161

== ENCOUNTER → 2018-01-24 08:18 | Outpatient (CLI) | payer OTHER, SELFPAY ==
[2017-08-14 13:04] VITALS: BMI 24.0
--- NOTE | 2018-01-24 08:22 | RAD_ITS ---
STUDY: X-RAY CHEST REASON FOR EXAM: Female, 62 years old. Abnormal lung sounds. TECHNIQUE: PA and lateral views of the chest. COMPARISON: Comparison is made with prior study dated March 30, 2018. FINDINGS: Hyperinflation. Stable mild degree of increased linear markings at the lung bases suggestive of mild basilar scarring. There is no demonstrated pleural abnormality. Normal size heart. Normal mediastinum and patricia. Normal visualized pulmonary arteries. Normal visualized aortic arch and descending thoracic aorta. Normal visualized thoracic spine. Normal visualized ribs, clavicles, and shoulders. There is no demonstrated abnormality of the visualized soft tissue structures of the upper abdomen. RAD/Chest PA and Lateral IMPRESSION: Hyperinflation. Mild increased markings at the lung bases suggestive of bibasilar scarring. Electronically Signed: Bo Villalpando MD at 8:42 EDT Tel [phone], Service support ,
== END ==
PROVIDERS: Family Provider Internal Medicine; PCP Internal Medicine; Visit Provider Internal Medicine
DX: R09.89 Other specified symptoms and signs involving the circulatory and respiratory systems (principal)
CPT/HCPCS: 71046

== ENCOUNTER → 2018-04-03 09:32 | Outpatient (CLI) | payer OTHER, SELFPAY ==
[2017-08-14 13:04] VITALS: BMI 24.0
--- NOTE | 2018-04-03 09:35 | RAD_ITS ---
STUDY: X-RAY - LEFT SHOULDER REASON FOR EXAM: Female, 63 years old. Fall. TECHNIQUE: 4 view(s) of the shoulder. COMPARISON: None. FINDINGS: Normal glenohumeral articulation. There is degenerative arthrosis of the acromioclavicular joint without inferior osseous spur formation. Normal acromion. Normal humeral head and visualized proximal humerus. The soft tissue structures are unremarkable. There is no demonstrated fracture. Normal visualized pulmonary apex. There are clips in the left axilla consistent with lymphadenectomy for breast cancer. RAD/Shoulder min 2 Views IMPRESSION: No acute fracture or dislocation. Electronically Signed: Jackson Morgan MD at 16:55 EDT , Service support ,
== END ==
PROVIDERS: Family Provider Internal Medicine; PCP Internal Medicine; Visit Provider Internal Medicine
DX: M25.512 Pain in left shoulder (principal)
CPT/HCPCS: 73030

== ENCOUNTER → 2018-06-16 16:00 | Outpatient (CLI) | payer OTHER, SELFPAY ==
[2017-08-14 13:04] VITALS: BMI 24.0
--- NOTE | 2018-06-16 16:02 | BI_ITS ---
MAMMOGRAPHY - BILATERAL SCREENING REASON FOR EXAM: Female, 63 years old. Routine annual screening examination. PERTINENT HISTORY: Personal history of breast cancer. Prior left lumpectomy with radiation treatment. TECHNIQUE: Digital bilateral breast michael (3D mammographic acquisition) in the CC and MLO projections. 2-D mediolateral oblique (MLO) and craniocaudad (CC) views of both breasts were obtained. CAD: Full Field Digital Mammography with Computer Added Detection was performed. COMPARISON: Comparison is made with prior mammogram dated June 03, 2017 and July 09, 2017. FINDINGS: Breast Composition: The breasts are heterogeneously dense, which may obscure small masses. There are no dominant masses or suspicious calcifications. Since prior examination, the patient underwent lumpectomy in the upper outer aspect of the left breast with resultant architectural distortion and breast deformity. Surgical clips are seen in the left axillary region. No new mass lesion or cluster microcalcifications present. No other significant abnormalities are identified. BI/SCREENING MAMM (CAD), BILAT IMPRESSION: Status post lumpectomy in the upper outer quadrant of the left breast as described with resultant breast deformity. No new abnormality is seen. Yearly follow-up mammogram recommended. (A) ASSESSMENT CATEGORY: BIRADS Category 2: Benign. A letter regarding these results will be sent to the patient by the facility within 30 days. Approximately 10% of breast cancers are not detected by mammography. A normal mammogram should not delay biopsy of a clinically suspicious abnormality. [id number] Electronically Signed: Bo Villalpando MD at 11:06 EDT Tel [phone], Service support ,
--- NOTE | 2018-06-16 16:37 | RAD_ITS ---
STUDY: X-RAY CHEST REASON FOR EXAM: Female, 63 years old. Cough congestion and shortness of breath TECHNIQUE: Frontal and lateral views of the chest. COMPARISON: 01/24/2018. FINDINGS: There is hyperinflation of the lungs consistent with chronic obstructive lung disease (COPD). No infiltrates or effusions. There is no demonstrated pleural abnormality. Normal size heart. Normal mediastinum and patricia. Normal visualized pulmonary arteries. Normal visualized aortic arch and descending thoracic aorta. Normal visualized thoracic spine. Normal visualized ribs, clavicles, and shoulders. There are clips in the left axilla consistent with lymphadenectomy for breast cancer. There is no demonstrated abnormality of the visualized soft tissue structures of the upper abdomen. RAD/Chest PA and Lateral IMPRESSION: There are findings consistent with COPD. There is no evidence of acute chest disease. Electronically Signed: Jackson Morgan MD at 15:35 EDT , Service support ,
== END ==
LOC: OPBI 16:00 → RAD 16:36
PROVIDERS: Family Provider Internal Medicine; PCP Internal Medicine; Referring Provider Nurse Practitioner Acute Care; Visit Provider Nurse Practitioner Acute Care
DX: R05 Cough (principal); Z12.31 Encounter for screening mammogram for malignant neoplasm of breast
CPT/HCPCS: 71046; 77063; 77067

== ENCOUNTER → 2018-06-17 06:23 | Outpatient (CLI) | payer OTHER, SELFPAY ==
[2017-08-14 13:04] VITALS: BMI 24.0
== END ==
PROVIDERS: Family Provider Internal Medicine; PCP Internal Medicine; Referring Provider Nurse Practitioner Acute Care; Visit Provider Nurse Practitioner Acute Care
DX: R05 Cough (principal)
CPT/HCPCS: 87070; 87205

== ENCOUNTER → 2018-07-22 15:47 | Outpatient (CLI) | payer OTHER, SELFPAY ==
[2017-08-14 13:04] VITALS: BMI 24.0
--- NOTE | 2018-07-22 15:48 | RAD_ITS ---
STUDY: X-RAY - LUMBAR SPINE REASON FOR EXAM: Female, 63 years old. Low back pain TECHNIQUE: 4 view(s) of the lumbar spine were obtained. COMPARISON: None FINDINGS: Normal lumbar lordosis. There is no substantial scoliosis. There is a normal alignment of the vertebrae. Normal vertebral bodies and endplates. Normal disc space heights. The soft tissue structures are unremarkable. Neurostimulator seen with the lead passing through the right sacrum. RAD/L/S Spine Min 4 Views IMPRESSION: Normal x-ray examination of the lumbar spine. Electronically Signed: Jackson Morgan MD at 21:47 EST , Service support ,
== END ==
PROVIDERS: Family Provider Internal Medicine; PCP Internal Medicine; Referring Provider Nurse Practitioner; Visit Provider Nurse Practitioner
DX: M54.5 Low back pain (principal)
CPT/HCPCS: 72110

== ENCOUNTER → 2018-11-20 16:24 | Outpatient (CLI) | payer BC, SELFPAY ==
[2017-08-14 13:04] VITALS: BMI 24.0
[2018-09-30 14:30] VITALS: BMI 27.9
[2018-11-20 17:44] LABS: Absolute Lymphocyte Count 2.37 X10^3/ul (0.83-4.51); Absolute Neutrophil Count 3.3 X10^3/uL (2.0-7.7); Basophil# 0.04 X10^3/uL; Basophil% 0.6 % (0-1); Eosinophil# 0.71 X10^3/uL; Eosinophils% 9.9 % (0-5); Hematocrit 41.6 % (37-47); Hemoglobin 13.1 g/dl (12.0-15.0); Lymphocyte # 2.37 X10^3/ul (4.0); Lymphocyte % 33.2 % (19-41); Mean Corp Hgb Conc 31.5 g/gl (32-36); Mean Corpuscular Hgb 29.9 pg (27.0-32.0); Mean Platelet Vol. 10.4 fl (6.2-12.0); Monocyte# 0.75 X10^3/uL; Monocyte% 10.5 % (0-10); Neutrophil # 3.26 X10^3/uL (2.7-7.7); Neutrophil % 45.7 % (47-70); Platelet Count 281 K/mm3 (150-450); RBC Distribution Width CV 13.7 % (11.6-14.6); Red Blood Count 4.38 M/mm3 (4.2-5.4); White Blood Count 7.1 K/mm3 (4.4-11.0)
[2018-11-20 18:05] LABS: POSITIVE COUNT NO; POSITIVE DIFFERENTIAL NO; POSITIVE MORPHOLOGY NO
[2018-11-20 18:28] LABS: ALB/GLOB Ratio 1.1 RATIO (0.9-2.4); AST(SGOT) 16 U/L (15-37); Alanine Aminotransfer ALT/SGPT 24 U/L (13-56); Albumin, Serum 3.4 g/dL (3.2-5.0); Alkaline Phosphatase 65 U/L (45-117); Anion Gap 5 (5-15); BUN 16 mg/dL (7-18); BUN/Creat Ratio 20.4 RATIO (10-20); Calcium,Total 8.7 mg/dL (8.5-10.1); Chloride 108 mmol/L (98-107); Creatinine, Serum 0.78 mg/dL (0.55-1.02); EST Glomerular Filtration Rate 78 mL/min (>60); Est Glom Filt Rate - Afr Amer 95 mL/min (>60); Ferritin 30 ng/mL (8-252); Globulin 3.2 g/dL (2.2-4.2); Glucose 87 mg/dL (74-106); Iron 46 ug/dL (50-170); Iron Binding Capacity,Total 342 ug/dL (250-450); PERCENT IRON SATURATION 13.5 % (15.0-55.0); Potassium 4.6 mmol/L (3.5-5.1); Protein, Total 6.6 g/dL (6.4-8.2); Sodium Level 141 mmol/L (136-145)
== END ==
PROVIDERS: Family Provider Internal Medicine; PCP Internal Medicine; Referring Provider Internal Medicine Hematology & Oncology; Visit Provider Internal Medicine Hematology & Oncology
DX: C50.912 Malignant neoplasm of unspecified site of left female breast (principal); D64.9 Anemia, unspecified
CPT/HCPCS: 36415; 80053; 82728; 83540; 83550; 85025

== ENCOUNTER → 2018-12-12 15:39 | Outpatient (CLI) | payer BC, SELFPAY ==
[2017-08-14 13:04] VITALS: BMI 24.0
[2018-12-12 14:28] VITALS: BMI 27.4
[2018-12-22 05:06] LABS: Aspirgillus flavus Negative (Neg:<1:1); Aspirgillus fumigatus Negative (Neg:<1:1); Aspirgillus niger Negative (Neg:<1:1)
[2018-12-22 11:48] LABS: Immunoglobulin E 59 IU/mL (6-495)
[2018-12-22 12:06] LABS: Alternaria alternata <0.10 kU/L (Class 0); Bermuda Grass <0.10 kU/L (Class 0); Bluegrass, Kentucky <0.10 kU/L (Class 0); Cat Hair/Dander, Standard <0.10 kU/L (Class 0); D farinae Mite <0.10 kU/L (Class 0); D pteronyssinus <0.10 kU/L (Class 0); Dog Epithelia <0.10 kU/L (Class 0); Elm, American White <0.10 kU/L (Class 0); Oak, White <0.10 kU/L (Class 0); Plantain, English <0.10 kU/L (Class 0); Ragweed, Short/Common <0.10 kU/L (Class 0)
[2018-12-22 14:26] LABS: Mouse Urine <0.10 kU/L (Class 0)
== END ==
PROVIDERS: Family Provider Internal Medicine; PCP Internal Medicine; Referring Provider Nurse Practitioner Acute Care; Visit Provider Nurse Practitioner Acute Care
DX: J45.909 Unspecified asthma, uncomplicated (principal)
CPT/HCPCS: 36415; 82785; 86003; 86606

== ENCOUNTER 2019-01-02 13:51 | Day surgery (SDC) | payer BC, SELFPAY ==
[2017-08-14 13:04] VITALS: BMI 24.0
[2018-11-27 15:02] VITALS: BMI 28.0
--- NOTE | 2018-12-08 15:38 | HP_ITS ---
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 Is patient in pain?: No Allergies ampicillin Allergy (Severe, Verified 12/08/18 14:43) Other cefaclor [From Ceclor] Allergy (Severe, Verified 12/08/18 14:43) Other ciprofloxacin [From Cipro] Allergy (Severe, Verified 12/08/18 14:43) Anaphylaxis ciprofloxacin HCl [From Cipro] Allergy (Severe, Verified 12/08/18 14:43) Anaphylaxis Penicillins Allergy (Severe, Verified 12/08/18 14:43) Other shellfish derived Allergy (Severe, Verified 12/08/18 14:43) Anaphylaxis vancomycin Allergy (Severe, Verified 12/08/18 14:43) Swelling Medications Dexlansoprazole [Dexilant] 30 mg PO PRN PRN 04/27/16 [History Confirmed 12/08/18] Montelukast Sodium [Singulair] 10 mg PO QHS 04/27/16 [History Confirmed 12/08/18] Paroxetine [Paxil] 20 mg PO DAILY 04/27/16 [History Confirmed 12/08/18] Albuterol Inhaler [Ventolin Hfa] 1 - 2 puff INHALATION Q4H PRN PRN 07/01/17 [History Confirmed 12/08/18] Denosumab [Prolia] 60 mg SQ QMONTH MDD due in November [id number] 07/01/17 [History Confirmed 12/08/18] Fluticasone 0.05% [Flonase Nasal [place]] 1 spray NASAL BID 07/01/17 [History Confirmed 12/08/18] Cetirizine HCl [Zyrtec] 10 mg PO DAILY 07/24/17 [History Confirmed 12/08/18] Aspirin [Aspirin, Baby] 81 mg PO DAILY@0800 09/30/17 [History Confirmed 12/08/18] Budesonide/Formoterol 80-4.5 [Symbicort 80-4.5 Mcg Inhaler] 2 puff INHALATION BID 09/30/17 [History Confirmed 12/08/18] Ezetimibe [Zetia] 10 mg PO DAILY 09/30/17 [History Confirmed 12/08/18] Anastrozole [Arimidex] 1 mg PO DAILY 90 Days #90 tab 11/06/17 [Rx Confirmed 12/08/18] prednisone 10 mg tablet 10 mg PO QDAY #30 tab 11/21/18 [Rx Confirmed 12/08/18] benzonatate 200 mg capsule 200 mg PO TID PRN #90 cap 12/05/18 [Rx Confirmed 12/08/18] guaifenesin ER 1,200 mg tablet, extended release 12 hr 1,200 mg PO Q12H #60 tab 12/05/18 [Rx Confirmed 12/08/18] doxycycline hyclate 100 mg tablet 100 mg PO BID #20 tab 12/08/18 [Rx Confirmed 12/08/18] PFSH Medical History Cancer of left female breast (Chronic) Osteoporosis (Chronic) Asthma (Chronic) Arthritis (Acute) BLADDER PACEMAKER (INTERSTEM) (Acute) Fracture of ankle (Acute) History of hysterectomy (Acute) RIGHT WRIST SURGERIES D/T ARTHRITIS (Acute) foot surgery (Acute) Surgical History History of cataract removal with insertion of prosthetic lens (Acute) History of left inguinal hernia repair (Acute) History of total left hip replacement (Acute) Post corneal transplant (Acute) S/P breast biopsy, left (Acute) S/P lumpectomy, left breast (Acute) Family History Mother Rheumatoid arthritis Pulmonary embolism Phlebitis Father CHF (congestive heart failure) Sister Diabetes Phlebitis Social History Smoking Status: Never smoker second hand exposure: No alcohol intake: never substance use type: does not use caffeine: Yes what type of physical activity do you participate in: none ROS General General: Yes fatigue and breast cancer; no weight change, appetite, colon cancer or weakness HEENT HEENT: Yes eye injury and eye surgery; no difficulty swallowing, swollen glands or hoarseness Endo Endocrine: No thyroid disease, diabetes mellitus, thyroid cancer, Hair loss, heat intolerance or cold intolerance Skin Skin: No rash or changing moles Breast Breast: No left breast lump, right breast lump, nipple discharge, breast pain, abnormal mammogram, abnormal US or breast enlargement Musc Musculoskeletal: Yes arthritis; no back problems, rheumatoid arthritis, gout or joint pain Cardio Cardiovascular: No murmur, pacemaker, heart disease, atrial fibrillation, high blood pressure, heart attack, heart stent, palpitations, shortness of breat with exertion or chest pain Psych Psychiatric: Yes anxiety; no depression or hearing voices Resp Respiratory: No shortness of breath, No sleep apnea, No cough, No COPD, Yes asthma, No emphysema, No wheezing Gastro Gastrointestinal: No abdominal pain, No nausea or vomiting, No diarrhea, No constipation, No blood in stool, Yes acid reflux, No hemorrhoids, No ulcers, No gallbladder problem, No black,tarry stools Erasto Hematologic: No blood thinners, No blood disorders, No bleeding, No anemia, No blood clots Neuro Neurologic: No system reviewed and no additional complaints, except as docu, No as per HPI, No abnormal walking, No abnormal hearing, No abnormal movements, No abnormal speech, No behavioral changes, No burning sensations, No confusion, No seizure-like activity, No unsteadiness, No dizziness, No localized weakness, No frequent falls, No headache(s), No lack of coordination, No loss of vision, No memory loss, No numbness, No other visual disturbances, No radiating pain, No restless legs, No sensory deficit, No fainting, No tingling, No tremor(s), No weakness, No other Exam Const General: cooperative Other: Intermittent dry cough HENKS Head: normal to inspection Chest Breast Palpation: No nipple discharge Resp Other: Slight scattered bilateral dry rales Cardio Rate: regular rate Rhythm: regular rhythm Heart Sounds: no murmurs GI Palpation: soft, no hepatosplenomegaly Auscultation: normal bowel sounds Skin General: no rashes or lesions noted Neuro Cranial Nerves: CN's II-XI intact bilaterally Extrem General: no calf tenderness bilaterally Assessment & Plan Problems 1. Chronic GERD K21.9 Plan Chronic GERD with long-term use of Dexilant I am proposing for her a esophagogastroduodenoscopy with possible biopsy. Unfortunately her current pulmonary status is not optimized. It is of additional note that she states that she is supposed to have foot surgery approximately January 02, 2019. She is not sure whether her lungs will be improved by that time. I do concur that an upper endoscopy we pre-pertinent. I have assisted this patient in the past and she is educated and able to participate. I am recommending that when she feels that her pulmonary status has improved and that there is a window of opportunity that she contact us so we could proceed with rapid scheduling of the upper endoscopy at that time. I would be hesitant to proceed right at this moment because of her recurrent acute symptoms. She has had an opting to ask and have questions answered and is very comfortable with this plan of approach. I very much appreciate the ongoing opportunity of assisting with her surgical care CC: Drs. Rivas and Nicolasa Campbell M.D., F.A.C.S. Coding Level of Care Code Exp prob focused,strt fwd Diagnoses Chronic GERD K21.9
[2018-12-12 14:28] VITALS: BMI 27.4
[2019-01-02 14:08] VITALS: BP 110/71; PULSE 73; RESP 18; TEMP 36.4; O2SAT 96; BMI 27.8
--- NOTE | 2019-01-02 15:15 | RAD_ITS ---
STUDY: X-RAY - LEFT FOOT CLINICAL: Female, 63 years old. Resection of heel spur. TECHNIQUE: 8 intraoperative view(s) of the foot. COMPARISON: None. FINDINGS: The provided images demonstrate a surgical probe along the underside of the foot. This approximates position of the plantar spur. Subsequent images demonstrate what appears to be a needle in surgery through the soft tissues into the calcaneus. Please refer to the operative report for further details. RAD/Foot min 3 Views IMPRESSION: Plantar spur resection in the OR. Electronically Signed: Pablo Thompson DO at 23:50 EDT Tel [phone], Service support ,
[2019-01-02] MEDS: Bupivacaine 0.5% PF 10 ML VIAL (15:50)
--- NOTE | 2019-01-02 16:20 | RAD_ITS ---
STUDY: X-RAY - LEFT FOOT CLINICAL: Female, 63 years old. Postoperative evaluation after he spur removal TECHNIQUE: 2 view(s) of the foot. COMPARISON: June 12, 2015 FINDINGS: The inferior calcaneal spur has been resected. There is minimal soft tissue gas along the plantar fascia. Normal visualized subtalar, talonavicular, calcaneocuboid, tarsal and tarsometatarsal articulations. Normal metatarsi. Normal metatarsophalangeal joint of the great toe. Normal tibial and fibular sesamoid bones. Normal interphalangeal joint of the great toe. Normal phalanges of the great toe. Normal second through fifth metatarsophalangeal joints. Normal interphalangeal joints and phalanges of the lesser toes. The soft tissue structures are unremarkable. RAD/Foot 2 Views IMPRESSION: Postsurgical removal of inferior calcaneal spur. No complications noted. Electronically Signed: Norman Fields MD at 17:15 EDT , Service support ,
--- NOTE | 2019-01-02 16:22 | PCM.DC.POD ---
Discharge Diet: Light diet - advance as tolerated Discharge Activity: May Not Drive, May not drive while taking narcotic pain medications. Weight Bearing Status: No weight bearing - No weightbearing left foot Keep extremity elevated above heart level: Left Leg - Keep left foot elevated using pillows for at least 50 minutes of every hour Call your doctor if your incision/area has: Continuous Slow Oozing, Sudden Increased Bleeding, Foul Smelling Discharge Call your doctor if you observe: Fever of 101 or Higher, Coldness, Increased Pain, Shortness of breath, Chest pain, Increased palpitations (irregular heartbeat), Calf discomfort, Uncontrolled pain Cleanse incision/area with: Do not get Incision Wet, Keep Dressing Clean & Dry Allergies/Adverse Reactions: Allergies ampicillin Allergy (Severe, Verified 01/02/19 14:06) Other DRUG FEVER cefaclor [From Ceclor] Allergy (Severe, Verified 01/02/19 14:06) Other DRUG FEVER ciprofloxacin [From Cipro] Allergy (Severe, Verified 01/02/19 14:06) Anaphylaxis ciprofloxacin HCl [From Cipro] Allergy (Severe, Verified 01/02/19 14:06) Anaphylaxis Penicillins Allergy (Severe, Verified 01/02/19 14:06) Other DRUG FEVER shellfish derived Allergy (Severe, Verified 01/02/19 14:06) Anaphylaxis vancomycin Allergy (Severe, Verified 01/02/19 14:06) Swelling Medications to take at Discharge Dexlansoprazole [Dexilant] 30 mg PO PRN PRN 04/27/16 Montelukast Sodium [Singulair] 10 mg PO QHS 04/27/16 Paroxetine [Paxil] 20 mg PO DAILY 04/27/16 Denosumab [Prolia] 60 mg SQ QMONTH MDD due in November [id number] 07/01/17 Fluticasone 0.05% [Flonase Nasal [place]] 1 spray NASAL BID PRN 07/01/17 Cetirizine HCl [Zyrtec] 10 mg PO DAILY 07/24/17 Aspirin [Aspirin, Baby] 81 mg PO DAILY@0800 09/30/17 Ezetimibe [Zetia] 10 mg PO DAILY 09/30/17 Anastrozole [Arimidex] 1 mg PO DAILY 90 Days #90 tab 11/06/17 calcitriol 0.5 mcg capsule 0.5 mcg PO DAILY #30 cap 12/12/18 Albuterol IH (ProAir) [Proair Hfa (SP)Vent Pts] 1 - 2 puff INHALATION Q4H PRN PRN 12/26/18 Ascorbic Acid [Vitamin C] 500 mg PO DAILY 12/26/18 Budesonide/Formoterol 160/4.5 [Symbicort] 2 puff INHALATION BID 12/26/18 C,E,Zinc,Copper 11/Opywh6q/Lut [Ocuvite Adult 50 Plus Softgel] 1 each PO DAILY 12/26/18 Ferrous Sulfate [Iron] 325 mg PO DAILY 12/26/18 Hydrocodone/Acetaminophen [Vicodin 5-300 mg Tablet] 1 - 2 tab PO Q6H PRN PRN 3 Days #20 tab 01/02/19 The following prescriptions were given: Hydrocodone/Acetaminophen [Vicodin 5-300 mg Tablet] 1 - 2 tab PO Q6H PRN PRN 3 Days #20 tab PRN Reason: Pain Primary Care Physician: Genesis Baldwin DO [Primary Care Provider] - Test Results: Test results from this visit will be discussed in further detail at your follow-up appointment, if applicable. Please Follow Up With: Pete Rodas DPM When: within 1 week, sooner if needed
[2019-01-02 16:23] VITALS: BP 110/71; BP 110/76; PULSE 73; RESP 16; TEMP 36.2; O2SAT 92
--- NOTE | 2019-01-02 16:24 | PCM.OPRPT ---
Report of Operation Date of Procedure: 01/02/19 - Surgeon: Pete Rodas DPM Pre-Operative Diagnosis: Plantar fasciitis and infracalcaneal spur left foot Post-Operative Diagnosis: Same Surgery/Procedure Performed:: Plantar fasiotomy, left foot. Resection of infracalcaneal spur, left foot entry level lab technician: yes - Dr. 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 She has elected to undergo surgical intervention - plantar fasciotomy with resection of infracalcaneal heel spur. This was discussed with her in detail, reviewed the possible benefits vs risks, goals, expectations, alternative options, and typical healing/post op recovery. The consent forms were reviewed with her, and she freely signed them. All of her questions were answered. No guarantees were given nor implied. Operative Procedure: The patient was brought back into the operating room and was placed on the operating room table in the supine position. She was carefully secured to the operating room table with a safety belt around the waist. A time out was performed and the patient was properly identified and the surgical plan was confirmed. The patient received 900mg of IV Clindamcyin for antibiotic prophylaxis. A well padded pneumatic tourniquet was applied around the patient's left ankle. The patient received anesthesia per the anesthesiologist, and a total of 20mL of 0.5% Bupivacaine plain was given as a regional nerve block around the heel surgical site. The left foot was scrubbed, prepped, draped in the usual aseptic fashion. The left foot was elevated for 3 minutes and the ankle pneumatic tourniquet was inflated to 250mmHg. The infracalcaneal spur was visualized on intra operative fluoroscopy. A skin incision was made to the medial hindfoot at the level of the plantar fascia and infracalcaneal spur, careful dissection was completed down through the subcutaneous tissue layer. A plane was created superiorly and inferiorly around the plantar fascia and the medial 50% of the plantar fascia was released via a plantar fasciotomy. It was noted there was significant thickening of the plantar fascia with fibrosis consistent with chronic plantar fasciitis. The infracalcaneal spur was felt, and was carefully resected using a powered rasp. Resection of the infracalcaneal spur was confirmed using intraoperative fluoroscopy. Images pre and post infracalcaneal spur resection were saved. The site was flushed out with copious amounts of normal saline solution. The skin was reapproximated using 3-0 Nylon. The pneumatic tourniquet was deflated (total tourniquet time was 20 minutes), and there was immediate return of warmth and perfusion to the foot and to all toes on the foot with normal temperature gradient and CFT < 2 seconds to all toes. Hemostasis was achieved. A dressing was applied which consisted of Betadine soaked adaptic, 4x4 gauze, Kerlix and bri bandage, being sure to apply it not to tight. The patient tolerated the above operative procedure well at the anesthesia well with no complication. The patient was transported to the recovery room with vital signs stable and in good condition. Post operative orders were placed. Post operative instructions were reviewed and dispensed verbal and written. No weightbearing left foot, keep foot elevated for at least 50 minutes of every hour, keep dressing clean, dry and intact. Prescription for Vicodin 1-2 tabs PO q 6 hours prn pain was prescribed. She is to follow up with me within 1 week or sooner if needed. Grafts/Implants Used: None - Complications None
[2019-01-02 16:30] VITALS: BP 104/70; BP 110/71; PULSE 73; RESP 16; O2SAT 95
[2019-01-02 16:45] VITALS: BP 110/71; BP 122/78; PULSE 79; RESP 16; O2SAT 100
[2019-01-02 16:56] VITALS: BP 110/71; BP 129/83; PULSE 79; RESP 16; TEMP 37; O2SAT 100
[2019-01-02 17:20] VITALS: BP 110/71
== END 2019-01-02 17:56 | disposition home or self-care (01) ==
LOC: SDC 13:52 → ACINP 13:54
PROVIDERS: Family Provider Internal Medicine; PCP Internal Medicine; Referring Provider Podiatrist; Visit Provider Podiatrist
PROC: (CPT 28119; principal; 2019-01-02 15:00)
DX: M72.2 Plantar fascial fibromatosis (principal); M77.32 Calcaneal spur, left foot; K21.9 Gastro-esophageal reflux disease without esophagitis; F41.9 Anxiety disorder, unspecified; J45.50 Severe persistent asthma, uncomplicated; Z85.3 Personal history of malignant neoplasm of breast; Z79.51 Long term (current) use of inhaled steroids; Z79.82 Long term (current) use of aspirin; Z79.899 Other long term (current) drug therapy
CPT/HCPCS: 28119; 73620; 73630; 76000; J7120; J2405

== ENCOUNTER 2019-02-06 06:28 | Day surgery (SDC) | payer BC, SELFPAY ==
[2017-08-14 13:04] VITALS: BMI 24.0
[2019-01-22 16:02] VITALS: BMI 26.9
[2019-02-06] VITALS (15 sets, daily range): BP systolic 105–124; BP diastolic 64–83; PULSE 70–81; RESP 10–16; TEMP 36–36.1; O2SAT 93–100; BMI 26.6
--- NOTE | 2019-02-06 | GASB_PTH ---
PATIENT: HEIKE ARROYO LOC: EN U#:[id number] AGE/SX: 63/F ROOM: RE02/06/[address]: Dr. Stephen Campbell MD : 1955 BED: DIS: 02/06/2019 SPEC #: [id number] RECD: 02/06/19 12:23 STATUS: KAVITHA REQ #: [id number] TWYLA: 02/06/19 00:[address]: Stephen Campbell DEPT: SURGICAL PATHOLOGY RECD BY: Joseph Monterroso ENTERED: 02/06/19 12:24 SP TYPE: Gastric Bx OTHR DR: Dr. Genesis Baldwin DO Tissues: A - Gastric mucous membrane B - Esophagus, NOS Procedures: PAS Fungus (control) Special Stain Group I Surgery Specimen Level IV HEADER OPERATION: EGD (MOD) PRE-OP DIAGNOSIS: Intractable GERD TISSUE SUBMITTED: A - Antral biopsy and H. pylori, B - Distal esophageal biopsy MICROSCOPIC DIAGNOSIS A. Gastric antrum, biopsy: Minimal chronic inflammation. See comment. B. Distal esophagus, biopsy: Consistent with changes of reflux. Negative for fungal organisms. See comment. AM:ronaldo 02/10/19 COMMENT A. The results of immunohistochemistry for Helicobacter pylori will be reported separately ([id number]). B. PASF stain with matched control supports the above diagnosis. MICROSCOPIC DESCRIPTION Slides are reviewed. GROSS DESCRIPTION A - Received in fixative is one container labeled with the patient's name and designated antrum biopsy. The specimen consists of one irregular fragment of light [place] soft tissue that measures 0.3 x 0.3 x 0.1 cm. The specimen is totally submitted in one cassette. B - Received in fixative is one container labeled with the patient's name and designated distal esophagus biopsy. The specimen consists of multiple irregular fragments of light [place] soft tissue that in aggregate measure 0.7 x 0.5 x 0.1 cm. The specimen is totally submitted in one cassette. / AM:ronaldo 02/06/19 TC:5 CPT: 89954 x2, 59087
--- NOTE | 2019-02-06 05:31 | HP.PCM_ITS ---
Problem List (1) Chronic GERD Status: Chronic History and Physical Date of Admission: 02/06/19 63-year-old female. She presented to the office to discuss problems with intractable gastroesophageal reflux disease. She has chronic pulmonary disease. Is felt that possibly this is contributory. She had to await a time. When her pulmonary disease had acquiesced to the point that would allow her to proceed with an upper endoscopy. She is now stabilized and returns for this procedure. Intake Visit Reasons: Discuss Upper Scope Reflux Chief Complaint: Breast cancer follow-up Director Of Operations Home Health Required: No Is patient in pain?: No Allergies ampicillin Allergy (Severe, Verified 12/08/18 14:43) Other cefaclor [From Ceclor] Allergy (Severe, Verified 12/08/18 14:43) Other ciprofloxacin [From Cipro] Allergy (Severe, Verified 12/08/18 14:43) Anaphylaxis ciprofloxacin HCl [From Cipro] Allergy (Severe, Verified 12/08/18 14:43) Anaphylaxis Penicillins Allergy (Severe, Verified 12/08/18 14:43) Other shellfish derived Allergy (Severe, Verified 12/08/18 14:43) Anaphylaxis vancomycin Allergy (Severe, Verified 12/08/18 14:43) Swelling Medications Dexlansoprazole [Dexilant] 30 mg PO PRN PRN 04/27/16 [History Confirmed 12/08/18] Montelukast Sodium [Singulair] 10 mg PO QHS 04/27/16 [History Confirmed 12/08/18] Paroxetine [Paxil] 20 mg PO DAILY 04/27/16 [History Confirmed 12/08/18] Albuterol Inhaler [Ventolin Hfa] 1 - 2 puff INHALATION Q4H PRN PRN 07/01/17 [History Confirmed 12/08/18] Denosumab [Prolia] 60 mg SQ QMONTH MDD due in November [id number] 07/01/17 [History Confirmed 12/08/18] Fluticasone 0.05% [Flonase Nasal [place]] 1 spray NASAL BID 07/01/17 [History Confirmed 12/08/18] Cetirizine HCl [Zyrtec] 10 mg PO DAILY 07/24/17 [History Confirmed 12/08/18] Aspirin [Aspirin, Baby] 81 mg PO DAILY@0800 09/30/17 [History Confirmed 12/08/18] Budesonide/Formoterol 80-4.5 [Symbicort 80-4.5 Mcg Inhaler] 2 puff INHALATION BID 09/30/17 [History Confirmed 12/08/18] Ezetimibe [Zetia] 10 mg PO DAILY 09/30/17 [History Confirmed 12/08/18] Anastrozole [Arimidex] 1 mg PO DAILY 90 Days #90 tab 11/06/17 [Rx Confirmed 12/08/18] prednisone 10 mg tablet 10 mg PO QDAY #30 tab 11/21/18 [Rx Confirmed 12/08/18] benzonatate 200 mg capsule 200 mg PO TID PRN #90 cap 12/05/18 [Rx Confirmed 12/08/18] guaifenesin ER 1,200 mg tablet, extended release 12 hr 1,200 mg PO Q12H #60 tab 12/05/18 [Rx Confirmed 12/08/18] doxycycline hyclate 100 mg tablet 100 mg PO BID #20 tab 12/08/18 [Rx Confirmed 12/08/18] PFSH Medical History Cancer of left female breast (Chronic) Osteoporosis (Chronic) Asthma (Chronic) Arthritis (Acute) BLADDER PACEMAKER (INTERSTEM) (Acute) Fracture of ankle (Acute) History of hysterectomy (Acute) RIGHT WRIST SURGERIES D/T ARTHRITIS (Acute) foot surgery (Acute) Surgical History History of cataract removal with insertion of prosthetic lens (Acute) History of left inguinal hernia repair (Acute) History of total left hip replacement (Acute) Post corneal transplant (Acute) S/P breast biopsy, left (Acute) S/P lumpectomy, left breast (Acute) Family History Mother Rheumatoid arthritis Pulmonary embolism Phlebitis Father CHF (congestive heart failure) Sister Diabetes Phlebitis Social History Smoking Status: Never smoker second hand exposure: No alcohol intake: never substance use type: does not use caffeine: Yes what type of physical activity do you participate in: none ROS General General: Yes fatigue and breast cancer; no weight change, appetite, colon cancer or weakness HEENT HEENT: Yes eye injury and eye surgery; no difficulty swallowing, swollen glands or hoarseness Endo Endocrine: No thyroid disease, diabetes mellitus, thyroid cancer, Hair loss, heat intolerance or cold intolerance Skin Skin: No rash or changing moles Breast Breast: No left breast lump, right breast lump, nipple discharge, breast pain, abnormal mammogram, abnormal US or breast enlargement Musc Musculoskeletal: Yes arthritis; no back problems, rheumatoid arthritis, gout or joint pain Cardio Cardiovascular: No murmur, pacemaker, heart disease, atrial fibrillation, high blood pressure, heart attack, heart stent, palpitations, shortness of breat with exertion or chest pain Psych Psychiatric: Yes anxiety; no depression or hearing voices Resp Respiratory: No shortness of breath, No sleep apnea, No cough, No COPD, Yes asthma, No emphysema, No wheezing Gastro Gastrointestinal: No abdominal pain, No nausea or vomiting, No diarrhea, No constipation, No blood in stool, Yes acid reflux, No hemorrhoids, No ulcers, No gallbladder problem, No black,tarry stools Erasto Hematologic: No blood thinners, No blood disorders, No bleeding, No anemia, No blood clots Neuro Neurologic: No system reviewed and no additional complaints, except as docu, No as per HPI, No abnormal walking, No abnormal hearing, No abnormal movements, No abnormal speech, No behavioral changes, No burning sensations, No confusion, No seizure-like activity, No unsteadiness, No dizziness, No localized weakness, No frequent falls, No headache(s), No lack of coordination, No loss of vision, No memory loss, No numbness, No other visual disturbances, No radiating pain, No restless legs, No sensory deficit, No fainting, No tingling, No tremor(s), No weakness, No other Exam Const General: cooperative Other: Intermittent dry cough HENMT Head: normal to inspection Chest Breast Palpation: No nipple discharge Resp Other: Slight scattered bilateral dry rales Cardio Rate: regular rate Rhythm: regular rhythm Heart Sounds: no murmurs GI Palpation: soft, no hepatosplenomegaly Auscultation: normal bowel sounds Skin General: no rashes or lesions noted Neuro Cranial Nerves: CN's II-XI intact bilaterally Extrem General: no calf tenderness bilaterally Assessment & Plan Problems 1. Chronic GERD K21.9 Plan Chronic GERD with long-term use of Dexilant I am proposing for her a esophagogastroduodenoscopy with possible biopsy. Unfortunately her current pulmonary status is not optimized. It is of additional note that she states that she is supposed to have foot surgery approximately January 02, 2019. She is not sure whether her lungs will be improved by that time. I do concur that an upper endoscopy we pre-pertinent. I have assisted this patient in the past and she is educated and able to participate. I am recommending that when she feels that her pulmonary status has improved and that there is a window of opportunity that she contact us so we could proceed with rapid scheduling of the upper endoscopy at that time. I would be hesitant to proceed right at this moment because of her recurrent acute symptoms. She has had an opting to ask and have questions answered and is very comfortable with this plan of approach. I very much appreciate the ongoing opportunity of assisting with her surgical care CC: Drs. Rivas and Nicolasa Campbell M.D., F.A.C.S. Coding Level of Care Code Exp prob focused,strt fwd Diagnoses Chronic GERD K21.9 I have re-examined the patient. There are no clinical changes since date of exam. The patient states that her respiratory status is stable. She states that she had proceeded with foot surgery without complication. She is dependent upon taking her Dexilant in order to treat her reflux symptoms. Currently she feels very stable. Stephen Campbell M.D., F.A.C.S.
--- NOTE | 2019-02-06 07:30 | IMM_PTH ---
PATIENT: HEIKE ARROYO LOC: EN U#:[id number] AGE/SX: 63/F ROOM: RE02/06/[address]: Dr. Stephen Campbell MD : 1955 BED: DIS: 02/06/2019 SPEC #: [id number] RECD: 02/06/19 14:35 STATUS: KAVITHA REQ #: [id number] TWYLA: 02/06/19 07:[address]: Stephen Campbell DEPT: IMMUNOHISTOCHEMISTRY RECD BY: Suha Champion ENTERED: 02/06/19 14:36 SP TYPE: IMMUNO OTHR DR: Dr. Genesis Baldwin, Tissues: A - Stomach, NOS Procedures: H Pylori (initial) PHYSICIAN & INSTITUTION [place] [id number] SPECIMEN INFORMATION: Tissue Source: A - Antral biopsy Clinical Info: Intractable GERD Specimen Number: [id number] CPT code: 00377 METHODOLOGY: Deparaffinized sections of prefer/formalin-fixed tissue or PAP/DQ stained slides are incubated with monoclonal/polyclonal antibodies/oligonucleotide probes. Localization is made via biotin free immunoperoxidase method. Appropriate controls are performed and reacted as expected. Results on target cell population are indicated in the following table: RESULTS: ANTIBODY / CLONE RESULT Block A H Pylori (polyclonal) negative These tests were developed and their performance characteristics determined by [facility]. They may not have been cleared or approved by the U.S. Food and Drug Administration. The FDA has determined that such clearance or approval is not necessary. INTERPRETATION: A. Antral biopsy: Negative for Helicobacter pylori organisms. AM:ronaldo 02/10/19
--- NOTE | 2019-02-06 08:07 | OP.ENDO_ITS ---
02/06/2019 Genesis Baldwin [address] [place] [address] Re : Upper GI endoscopy procedure for Kenya Koch Dear Dr. Baldwin This procedure was performed on Wednesday, February 06, 2019. My impressions and recommendations are as follows: Impressions : - Z-line irregular, 35 cm from the incisors. - LA Grade A reflux esophagitis. Biopsied. - Medium-sized hiatal hernia. - Erythematous mucosa in the antrum. Biopsied. - Normal examined duodenum. Recommendations : - Discharge patient to home. - Resume previous diet. - Continue present medications. - Return to my office in 1 week. Need to consider manometry and repair of hiatal hernia My findings are described in the full procedure note, which is enclosed. If I can be of further assistance, please feel free to contact me at Doctor phone number(s): Work: . Sincerely, Stephen Campbell MD 02/06/2019 8:06:34 AM This report has been signed electronically.
== END 2019-02-06 09:35 | disposition home or self-care (01) ==
LOC: EN 06:29 → AC 06:30
PROVIDERS: Family Provider Internal Medicine; PCP Internal Medicine; Referring Provider Surgery; Visit Provider Surgery
PROC: (CPT 43239; principal; 2019-02-06 07:25)
DX: K29.50 Unspecified chronic gastritis without bleeding (principal); K21.0 Gastro-esophageal reflux disease with esophagitis; J45.909 Unspecified asthma, uncomplicated; M19.90 Unspecified osteoarthritis, unspecified site; Z85.3 Personal history of malignant neoplasm of breast; Z79.51 Long term (current) use of inhaled steroids; Z79.899 Other long term (current) drug therapy
CPT/HCPCS: 43239; 88305; 88312; 88342; 99152

== ENCOUNTER 2019-03-12 07:52 | Day surgery (SDC) | payer BC, SELFPAY ==
[2017-08-14 13:04] VITALS: BMI 24.0
[2019-02-18 09:21] VITALS: BMI 26.6
[2019-03-05 15:23] VITALS: BMI 27.8
[2019-03-12 08:19] VITALS: BP 115/77; PULSE 86; RESP 16; TEMP 37; O2SAT 95
== END 2019-03-12 09:02 | disposition home or self-care (01) ==
LOC: EN 07:53
PROVIDERS: Surgery; Family Provider Internal Medicine; PCP Internal Medicine; Referring Provider Surgery
PROC: F00ZJWZ Instrumental Swallowing and Oral Function Assessment using Swallowing Equipment (ICD-10-PCS; CPT 43235; principal; 2019-03-12 07:55)
DX: K21.9 Gastro-esophageal reflux disease without esophagitis (principal)
CPT/HCPCS: 91010

== ENCOUNTER 2019-04-15 08:00 | Outpatient (RCR) | payer BC, SELFPAY ==
[2017-08-14 13:04] VITALS: BMI 24.0
[2019-02-06 06:42] VITALS: BMI 26.6
[2019-02-18 09:21] VITALS: BMI 26.6
--- NOTE | 2019-03-04 15:16 | HP.PTEVAL_ITS ---
Patient's Visit Information HEIKE ARROYO is a 63 year old F referred to Physical Therapy by Pete Rodas DPM with a diagnosis of L plantar fasciotomy. Date of Evaluation: 03/04/19 Physical Therapist: Slava Olivera DPT - Visit Plan Frequency: 2-3x /Week Duration: 4-6 Weeks Plan: Start with US/graston to plantar fascia, DF and fasci stretching. Progress intrinsic strengthening as long as pain free. Progress HEP as able. - Subjective Findings: Pt. is here today for her initial evaluation with diagnosis of L plantar fasciotomy. Pt. had surgery 2 months ago, and is doing very well, but is still having some soreness with walking and standing. Pt. denies N/t, no bursing sensation in her feet as well. Pt. reports no issues otherwise. Pt. is able to walk without AD and is please with progress thus far. Pt. has been stretching as prescribed by physician. Pt. would like to get back to all recreational and houshold activities without limitations. - Pain L plantar region of foot Pain Intensity (Out of 10): 2 Pain Intensity Range: 1, 4 - Objective POSTURE: Pt. has normal posture in stance. Pt. has slight reduction in arch hieght on L side, but minimal change from other side. PALPATION: Pt. has normal healing incsion, slight increase in tissue tension of plantar fascia. Pt. has no signs of infection, but does have some scar tissue build up. NEURO: normal throughout. ROM: L ankle DF 10deg, rest within normal limits, tight plantar fascia of L foot. decreased toe extension throughout L foot. MMT: 5/5 throughout; except intrinsic strength 4/5. and post tibialis. GAIT: Pt. has decreased DF during loading phase, early heel off with heel off phase, decreased wt. shift to L side during stance phase. STAIRS: early heel off with descending. - Goals Goal 1:: Pt. to be I with HEP. Goal Time Frame: 4-6 Weeks Goal 2:: Pt. to have increased DF ROm to 15deg on L side. Goal Time Frame: 4-6 Weeks Goal 3:: Pt. to ambulate with 0-1/10 pain in L foot. Goal Time Frame: 4-6 Weeks Goal 4:: Pt. to have normalized gait pattern. Goal Time Frame: 4-6 Weeks Goal 5:: Pt. to have increased PF and foot intrinsic strength increased by 1/2 grade. - Rehabilitation Potential Physical Therapy Diagnosis: Pt. has signs and symptoms consistent with L plantar fasciotomy. Pt. has subsequent hypombility, foot/ankle weakness and difficulty with gait. Pt. would benefit from PT increase tissue length, decrease symptoms and intrinsic foot strength in order to ambulate and complete all daily activities with reduced symptoms. Rehabilitation Potential: Excellent - Anticipated Interventions Patient/Client Instruction: Educate patient on: Condition, Plan of Care, Risk Factors, Benefits of Fitness Program For the Purpose of:: To improve decision making, To facilitate caregiver knowledge, To improve self management, To prevent re-injury, To improve ability to perform tasks related to life management, To improve tolerance to ADL's Therapeutic Exercise to Include: Strength training, Power training, Endurance training, Postural training, Flexibilty training, Gait and locomotor training, Passive ROM, Active ROM For the Purpose of:: To decrease pain, To decrease swelling/inflammation, To increase ROM, To improve nutrient delivery to tissue, To increase oxygenation perfusion, To improve muscle performance and motor function, To improve health of tissue, To decrease soft tissue restriction, To increase flexibility/ROM Manual Therapy Techniques to Include: Trigger point massage, Mobilization, Passive ROM, Soft tissue mobilization For the Purpose of:: To decrease pain, To decrease swelling/inflammation, To increase ROM, To improve nutrient delivery to tissue, To increase oxygenation perfusion, To improve muscle performance and motor function IF ES: Yes Cryotherapy (ice pack, ice massage): Yes Ultrasound (thermal/non thermal): Yes For the Purpose of:: To decrease pain, To decrease swelling/inflammation, To increase ROM, To improve nutrient delivery to tissue, To increase oxygenation perfusion, To improve muscle performance and motor function Thank you for the opportunity to evaluate your patient. For Medicare and Medicare HMO plans, please review the plan of care and approve it. It will need to be FAXED BACK to us at [phone] for Medicare purposes. For Medicare only, by signing this I certify the plan of care. Please let me know if there are questions or concerns regarding this plan of care. Physician Signature: _Date:
--- NOTE | 2019-04-15 08:23 | HP.PTDCSUM ---
HP - PT D/C Summary It has been my pleasure to treat HEIKE ARROYO under orders from Pete Rodas DPM, for the diagnosis of L plantar fasciotomy for a total of 10 visit(s). Discharge Date: Please see the following information for a summary of their discharge status. - Subjective Subjective: Mild pain this date. Still limping at this time. - Pain L plantar region of foot Pain Intensity (Out of 10): 2 - Overall Improvement % Improvement: 65 - Objective Objective/Function: L foot pain 10/26 this date. L ankle DF ROM 15 degrees. L ankle MMT 5/5 throughout. Pt is I with HEP. Rx goals mostly achieved - Goals Goal 1:: Pt. to be I with HEP. Goal Progress: Goal Met Goal 2:: Pt. to have increased DF ROm to 15deg on L side. Goal Progress: Goal Met Goal 3:: Pt. to ambulate with 0-1/10 pain in L foot. Goal Progress: Progressing Goal 4:: Pt. to have normalized gait pattern. Goal Progress: Progressing Goal 5:: Pt. to have increased PF and foot intrinsic strength increased by 1/2 grade. Goal Progress: Progressing - Plan Plan: Discharge - D/C Information If there are questions or concerns regarding this patient's physical therapy, please feel free to call me at [phone]. Thank you for the referral of this patient. Sincerely, Garrison Fair, PT, ATC
== END 2019-04-15 10:09 | disposition home or self-care (01) ==
LOC: PT 08:00
PROVIDERS: Family Provider Internal Medicine; PCP Internal Medicine; Referring Provider Podiatrist; Visit Provider Podiatrist
DX: Z98.890 Other specified postprocedural states (principal)
CPT/HCPCS: 97035; 97110; 97140; 97161; 97530

== ENCOUNTER 2019-04-20 10:14 | Observation (INO) | payer BC, MEDICARE, SELFPAY ==
[2017-08-14 13:04] VITALS: BMI 24.0
[2019-02-18 09:21] VITALS: BMI 26.6
--- NOTE | 2019-03-26 02:08 | HP_ITS ---
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 Required: No Is patient in pain?: No Allergies ampicillin Allergy (Severe, Verified 03/26/19 09:06) Other cefaclor [From Ceclor] Allergy (Severe, Verified 03/26/19 09:06) Other ciprofloxacin [From Cipro] Allergy (Severe, Verified 03/26/19 09:06) Anaphylaxis ciprofloxacin HCl [From Cipro] Allergy (Severe, Verified 03/26/19 09:06) Anaphylaxis Penicillins Allergy (Severe, Verified 03/26/19 09:06) Other shellfish derived Allergy (Severe, Verified 03/26/19 09:06) Anaphylaxis vancomycin Allergy (Severe, Verified 03/26/19 09:06) Swelling Medications Dexlansoprazole [Dexilant] 30 mg PO PRN PRN 04/27/16 [History Confirmed 03/26/19] Montelukast Sodium [Singulair] 10 mg PO QHS 04/27/16 [History Confirmed 03/26/19] Paroxetine [Paxil] 20 mg PO DAILY 04/27/16 [History Confirmed 03/26/19] Denosumab [Prolia] 60 mg SQ UD 07/01/17 [History Confirmed 03/26/19] Fluticasone 0.05% [Flonase Nasal [place]] 1 spray NASAL BID PRN 07/01/17 [History Confirmed 03/26/19] Aspirin [Aspirin, Baby] 81 mg PO DAILY@0800 09/30/17 [History Confirmed 03/26/19] Ezetimibe [Zetia] 10 mg PO DAILY 09/30/17 [History Confirmed 03/26/19] calcitriol 0.5 mcg capsule 0.5 mcg PO DAILY #30 cap 12/12/18 [Rx Confirmed 03/26/19] Ascorbic Acid [Vitamin C] 500 mg PO DAILY 12/26/18 [History Confirmed 03/26/19] Budesonide/Formoterol 160/4.5 [Symbicort] 2 puff INHALATION BID 12/26/18 [History Confirmed 03/26/19] C,E,Zinc,Copper 11/Ymvme2b/Lut [Ocuvite Adult 50 Plus Softgel] 1 ea PO DAILY 12/26/18 [History Confirmed 03/26/19] Ferrous Sulfate [Iron] 325 mg PO DAILY 12/26/18 [History Confirmed 03/26/19] cetirizine 10 mg tablet 10 mg PO DAILY #30 tab 01/05/19 [Rx Confirmed 03/26/19] albuterol sulfate HFA 90 mcg/actuation aerosol inhaler 1 - 2 puff INHALATION Q4H PRN PRN #18 g 02/10/19 [Rx Confirmed 03/26/19] Anastrozole [Arimidex] 1 mg PO DAILY 90 Days #90 tab 03/03/19 [Rx Confirmed 03/26/19] Fluconazole [Diflucan] 400 mg PO MO 03/05/19 [History Confirmed 03/26/19] PFSH Medical History Chronic GERD (Chronic) foot surgery (Acute) History of hysterectomy (Acute) BLADDER PACEMAKER (INTERSTEM) (Acute) Fracture of ankle (Acute) Arthritis (Acute) RIGHT WRIST SURGERIES D/T ARTHRITIS (Acute) Cancer of left female breast (Chronic) Osteoporosis (Chronic) Asthma (Chronic) Surgical History Hx of colonoscopy (Acute) History of esophagogastroduodenoscopy (EGD) (Acute) S/P lumpectomy, left breast (Acute) S/P breast biopsy, left (Acute) Post corneal transplant (Acute) History of cataract removal with insertion of prosthetic lens (Acute) History of total left hip replacement (Acute) History of left inguinal hernia repair (Acute) Family History Mother Rheumatoid arthritis Pulmonary embolism Phlebitis Father CHF (congestive heart failure) Sister Diabetes Phlebitis Social History (Updated 03/26/19 @ 14:08 by Stephen Campbell MD) Smoking Status: Never smoker second hand exposure: No alcohol intake: never substance use type: does not use caffeine: Yes what type of physical activity do you participate in: none HPI HPI HPI: HEIKE KOCH, is a 64 F who presents to the office today for HPI HPI Surgical H&P: Yes HPI: HEIKE KOCH, is a 64 F who presents to the office today for ongoing surgical follow-up regarding her sliding hiatal hernia with gastroesophageal reflux disease and exacerbated pulmonary mission felt to be in part secondary to reflux. In addition to the testing below on March 12, 2019 she had esophageal manometry performed at the [facility]. 10 swallows were analyzed with good bolus clearance. Good LES relaxation. Patient appears to have a shortened esophagus. Diaphragmatic pinch point is 4 cm distal to the LES. Good motility is seen with normal DCI Surgical H&P: Yes HPI: HEIKE KOCH, is a 63 F who presents to the office today for surgical consultation regarding iron deficiency. The patient has had GERD for multiple years. She has not had an upper endoscopy according to her for at least 7 years. She is being referred by Dr. Xin Rivas for surgical consultation regarding her ongoing dependent use of Dexilant and history of GERD. As of November 20, 2018 white blood cell count was 7.1 hemoglobin 13.1 hematocrit 41.6 platelet count 281,000. Liver profile that time was normal. BUN 16 creatinine 0.78. I assisted her with a breast conservation surgery left breast July 11, [address] [facility] Medical Records Department [address] [place] [address] Operative Report - Endoscopy MR#: [id number] Name: HEIKE KOCHRep #:[id number]: Stephen Campbell MD PCP:Genesis Baldwin DO [place] [place] Genesis Baldwin [address] [place] [address] Re : Upper GI endoscopy procedure for Heike Koch Dear Dr. Baldwin This procedure was performed on Saturday, February 06, 2019. My impressions and recommendations are as follows: Impressions : - Z-line irregular, 35 cm from the incisors. - LA Grade A reflux esophagitis. Biopsied. - Medium-sized hiatal hernia. - Erythematous mucosa in the antrum. Biopsied. - Normal examined duodenum. Recommendations : - Discharge patient to home. - Resume previous diet. - Continue present medications. - Return to my office in 1 week. Need to consider manometry and repair of hiatal hernia My findings are described in the full procedure note, which is enclosed. If I can be of further assistance, please feel free to contact me at Doctor phone number(s): Work: . Sincerely, Stephen Campbell MD 02/06/2019 8:06:34 AM This report has been signed electronically. 02/06/19805 Date Stephen Campbell MD Cosigner Signature:Date (if indicated) CC: Genesis Baldwin DO; Stephen Campbell MD ~ Date Dictated:02/06/19743 Date Transcribed: Credit Control Administrator:[facility] Signed Pathology showed chronic gastritis and reflux esophagitis. H. pylori was negative ROS General General: Yes fatigue and breast cancer; no weight change, appetite, colon cancer or weakness HEENT HEENT: Yes eye injury and eye surgery; no difficulty swallowing, swollen glands or hoarseness Endo Endocrine: No thyroid disease, diabetes mellitus, thyroid cancer, Hair loss, heat intolerance or cold intolerance Skin Skin: No rash or changing moles Breast Breast: No left breast lump, right breast lump, nipple discharge, breast pain, abnormal mammogram, abnormal US or breast enlargement Musc Musculoskeletal: Yes arthritis; no back problems, rheumatoid arthritis, gout or joint pain Cardio Cardiovascular: No murmur, pacemaker, heart disease, atrial fibrillation, high blood pressure, heart attack, heart stent, palpitations, shortness of breat with exertion or chest pain Psych Psychiatric: Yes anxiety; no depression or hearing voices Resp Respiratory: No shortness of breath, No sleep apnea, No cough, No COPD, Yes asthma, No emphysema, No wheezing Gastro Gastrointestinal: No abdominal pain, No nausea or vomiting, No diarrhea, No constipation, No blood in stool, Yes acid reflux, No hemorrhoids, No ulcers, No gallbladder problem, No black,tarry stools Erasto Hematologic: No blood thinners, No blood disorders, No bleeding, No anemia, No blood clots Neuro Neurologic: No weakness Exam Const General: cooperative, comfortable, no acute distress Nutritional Appearance: average body habitus Orientation: alert, awake [facility] Head: normal to inspection Eyes General: appearance normal, both eyes and all related structures Neck Carotids: normal carotid upstroke Chest Breast Palpation: No nipple discharge Resp Other: Currently clear in apices, scattered wheeze, scattered dry rale Cardio Heart Sounds: no murmurs GI Palpation: soft, no hepatosplenomegaly Auscultation: normal bowel sounds Neuro Cognition: normal cognition Extrem General: no calf tenderness bilaterally Psych Affect: normal affect Assessment & Plan Problems 1. Chronic GERD K21.9 Plan I am suspicious that her chronic GERD is exacerbating her pulmonary disease. She certainly seems to be symptomatic from her reflux problem. I have discussed with her recommendations for laparoscopic repair of her hiatal hernia with subsequent reflux procedure. I believe that would be reasonable to offer her posterior fundoplication/toupet procedure. This would limit the possibility of postoperative symptoms and yet facilitate her reflux concerns. The patient and have had an opting to ask and have questions answered. No guarantees of success have been offered. We will schedule and proceed at her discretion. She will try to maximize her pulmonary health in the interim. I very much appreciate the ongoing opportunity of assisting with her surgical care. CC: Dr. Genesis Campbell M.D., F.A.C.S. Coding Level of Care Code Off vis,est,level 2 Diagnoses Chronic GERD K21.9 03/26/19 1408 <Electronically signed by Stephen cat MD> Date _ Stephen Campbell MD I have re-examined the patient. There are no clinical changes since date of exam.
--- NOTE | 2019-04-10 10:11 | EKG12_ITS ---
Test Reason : PREOP Blood Pressure : / mmHG Vent. Rate : 067 BPM Atrial Rate : 067 BPM P-R Int : 146 ms QRS Dur : 084 ms QT Int : 394 ms P-R-T Axes : 072 065 068 degrees QTc Int : 416 ms Normal sinus rhythm with sinus arrhythmia Normal ECG Confirmed by GILBERTO HERNANDEZ, REGINALD ([id number]), offline editor JHONATAN SILVA ([id number]) on 04/13/2019 2:10:23 PM Referred By: Stephen Campbell Confirmed By:JOVITA MACIAS MD
[2019-04-10 10:18] LABS: Hematocrit 44.4 % (37-47); Hemoglobin 14.1 g/dL (12.0-15.0); Mean Corp Hgb Conc 31.8 g/dL (32-36); Mean Corpuscular Volume 94.5 fL (81-99); Platelet Count 306 K/mm3 (150-450); RBC Distribution Width CV 13.1 % (11.6-14.6); RBC Distribution Width SD 45.8 fl (35.1-43.9); White Blood Count 6.7 K/mm3 (4.4-11.0)
[2019-04-10 11:01] LABS: Anion Gap 4 (5-15); BUN 15 mg/dL (7-18); BUN/Creat Ratio 17.3 RATIO (10-20); Calcium,Total 8.6 mg/dL (8.5-10.1); Chloride 109 mmol/L (98-107); Creatinine, Serum 0.87 mg/dL (0.55-1.02); EST Glomerular Filtration Rate 70 mL/min (>60); Est Glom Filt Rate - Afr Amer 84 mL/min (>60); Glucose 151 mg/dL (74-106); Potassium 4.1 mmol/L (3.5-5.1); Sodium Level 140 mmol/L (136-145)
[2019-04-15 07:01] VITALS: BMI 27.8
[2019-04-20] VITALS (14 sets, daily range): BP systolic 106–130; BP diastolic 66–88; PULSE 80–99; RESP 16–20; TEMP 36.3–37.3; O2SAT 93–98; BMI 27.6; BMI 27.7
--- NOTE | 2019-04-20 07:08 | DCINST_ITS ---
<Stephen Campbell - Last Filed: 04/20/19 07:08> Discharge Diet: - - You may have any type of liquid which at body temperature will dissolve. This includes yogurt and ice cream and milkshakes and putting and any type of soup even with small particles. You may then advance to pasta or rice after a couple days if well tolerating the liquids. Avoid bread and beef and pork. Discharge Activity: May Not Drive - for 1 week or while taking narcotic pain medicine. May shower in (days): 1 Lifting Restrictions: 10 pounds Call your doctor if your incision/area has: Continuous Slow Oozing, Sudden Increased Bleeding, Increased Pain/ Swelling, Increased Redness, Foul Smelling Discharge Call your doctor if you observe: Fever of 101 or Higher Suture Line Care: Avoid Pulling/Pushing, Avoid Pinching/Bending Additional Dressing/Incision Instructions:: Change or remove dressing in 3 days. Leave steri-strips in place for 1 week. Allergies/Adverse Reactions: Allergies ampicillin Allergy (Severe, Verified 04/15/19 06:40) Other DRUG FEVER cefaclor [From Ceclor] Allergy (Severe, Verified 04/15/19 06:40) Other DRUG FEVER ciprofloxacin [From Cipro] Allergy (Severe, Verified 04/15/19 06:40) Anaphylaxis ciprofloxacin HCl [From Cipro] Allergy (Severe, Verified 04/15/19 06:40) Anaphylaxis Penicillins Allergy (Severe, Verified 04/15/19 06:40) Other DRUG FEVER shellfish derived Allergy (Severe, Verified 04/15/19 06:40) Anaphylaxis vancomycin Allergy (Severe, Verified 04/15/19 06:40) Swelling Medications to take at Discharge Dexlansoprazole [Dexilant] 30 mg PO PRN PRN 04/27/16 Montelukast Sodium [Singulair] 10 mg PO QHS 04/27/16 Paroxetine [Paxil] 20 mg PO DAILY 04/27/16 Denosumab [Prolia] 60 mg SQ UD 07/01/17 Fluticasone 0.05% [Flonase Nasal [place]] 1 spray NASAL BID PRN 07/01/17 Aspirin [Aspirin, Baby] 81 mg PO DAILY@0800 09/30/17 Ezetimibe [Zetia] 10 mg PO DAILY 09/30/17 calcitriol 0.5 mcg capsule 0.5 mcg PO DAILY #30 cap 12/12/18 Ascorbic Acid [Vitamin C] 500 mg PO DAILY 12/26/18 Budesonide/Formoterol 160/4.5 [Symbicort 160/4.5 Mcg Inhaler (SP)] 2 puff INHALATION BID 12/26/18 C,E,Zinc,Copper 11/Chunh4k/Lut [Ocuvite Adult 50 Plus Softgel] 1 ea PO DAILY 12/26/18 Ferrous Sulfate [Iron] 325 mg PO DAILY 12/26/18 cetirizine 10 mg tablet 10 mg PO DAILY #30 tab 01/05/19 Anastrozole [Arimidex] 1 mg PO DAILY 90 Days #90 tab 03/03/19 Fluconazole [Diflucan] 400 mg PO MO 03/05/19 albuterol sulfate 2.5 mg/3 mL (0.083 %) solution for nebulization 2.5 mg INHALATION Q4H PRN #180 ml 04/15/19 albuterol sulfate HFA 90 mcg/actuation aerosol inhaler 2 puff INHALATION Q4H PRN #18 g 04/15/19 benralizumab 30 mg/mL subcutaneous syringe 30 mg SC Q4W #1 ml 04/15/19 Hydrocodone Bitart/Apap 5-325 [[place] 5MG-325MG] 1 tab PO Q6H PRN PRN 2 Days #8 tab 04/20/19 The following prescriptions were given: Hydrocodone Bitart/Apap 5-325 [[place] 5MG-325MG] 1 tab PO Q6H PRN PRN 2 Days #8 tab PRN Reason: Pain Transmission Status: Received by [facility] Primary Care Physician: Genesis Baldwin DO [Primary Care Provider] - Test Results: Test results from this visit will be discussed in further detail at your follow- up appointment, if applicable. Please Follow Up With: Stephen Campbell MD - [phone] When: Call to make an appointment to be seen in about 10 days. <Linh Jack - Last Filed: 04/21/19 11:04> Discharge Diet: - - Liquid diet. You may have anything which at body temperature will dissolve. This would include any type of soup. You may utilize nutritional supplements (i.e. Ensure), pudding, yogurt, ice cream and milkshakes. If you tolerate that well you may advance to pasta, rice, cream of wheat or oatmeal 7 days after surgery. If you tolerate that you may advance to flaky fish and then chicken in very small pieces well chewed approximately 14 days after surgery. If at any time you have trouble swallowing, increased pain, or you feel like food is stuck, return to full liquid diet for a day or two. Avoid tough meats, any breads or cracker products and raw veggies for 3 weeks. Test Results: Test results from this visit will be discussed in further detail at your follow- up appointment, if applicable.
[2019-04-20] MEDS: Bupivacaine Mpf 0.5% 30 ML VIAL (07:41)
--- NOTE | 2019-04-20 10:18 | PCM.OPRPT ---
Problem List (1) Hiatal hernia with GERD and esophagitis Status: Acute Report of Operation Date of Procedure: 04/20/19 Pre-Operative Diagnosis: Hiatal hernia with gastroesophageal reflux disease, esophagitis, pulmonary aggravation Post-Operative Diagnosis: Same Surgery/Procedure Performed:: Laparoscopic repair of hiatal hernia with laparoscopic toupet and esophagogastroduodenoscopy Description of Surgical Findings:: Timeout and informed consent was obtained. 64-year-old female was taken out from placement table underwent general endotracheal intubation and anesthesia. 900 mg clindamycin was given intravenously preoperatively. She was placed on a beanbag and placed in a low lithotomy position as she underwent general endotracheal intubation anesthesia. The abdomen sterilely prepped and draped. Ioban draping was used to help old drapes in place. 0.5% Marcaine was used as local anesthetic. Throughout the procedure a total of 30 cc was used. Skin sites were sprayed superior right upper quadrant from the umbilicus a 5-minute trochars placed under direct Visiport technology. Clean access was gained to the abdomen. The abdomen was insufflated with CO2 to a pressure of 10 minutes mercury pressure. Toya trocar was placed in the left epigastrium and 2 more 5 mm ports in the left upper lateral abdomen. The patient was placed in reverse Trendelenburg position and a epigastric incision was created and a Cuate retractor was placed carefully securing the liver. Inspection revealed no evidence of any trocar injury. It appeared that the proximal stomach was within the chest. The epiphrenic ligament was incised with harmonic scalpel the right and left artemio carefully dissected free with a combination of Harmonic Scalpel dissection and blunt dissection. The cardia was within the chest and I had to carefully dissect where the left artemio. The short gastrics were very short and there were transected with harmonic scalpel. Very small amount of bleeding from the spleen just from tension was controlled easily with fibular. The short gastrics were then nicely mobilized to give clean access to the left artemio and I was able to dissect posteriorly and then released the posterior fat pad. I then was better able to identify the right artemio continue the dissection working back and forth retroesophageal access and I placed 1/4 inch Nilo drain assisted with mobilization of the esophagus moving it back and forth so I could circumferentially dissected free. I dissected free at at least 8 cm within the mediastinum completely circumferentially which very nicely mobilized the stomach back down into the abdomen. There has been a moderate sized hiatal hernia and I felt that I was able to mobilize that get that back into the abdomen in correct position. Chappell that I had at least a several at least a centimeter of esophageal length. Having now clearly mobilized the esophagus and stomach and now could have clean visualization of the artemio. Using pledgets I used 0 Nurolon and I placed 3 sutures approximated the crura to a nice repair. I then took the fundus of the stomach wrapped around in a clean positioning. I secured the posterior aspect of that wrapped to the crura with 0 Ethibond. That was positioned nicely. I then used 2-0 Ethibond with pledgeted sutures and I secured the esophagus to the epiphrenic ligament into the wrap portion of the fundus. I then did a running suture to approximate that to the anterior lateral aspect of the esophagus approximately the wrap portion of the stomach to this to allow for a 270 degree posterior wrap. I felt that I had nice positioning. I then tested and checked the greater curvature of the stomach testing to see good positioning and then using again a 2-0 Ethibond pledgeted sutures I secured that portion of the wrap to the stomach epiphrenic ligament into the anterior lateral aspect of the esophagus. I secured the anterior aspect of the stomach to the epiphrenic ligament with a simple suture of 0 Ethibond as well. I then finished the running suture to complete the posterior 5 fundoplication. That running suture of 2-0 Ethibond secured the greater curvature portion of the fundus of the stomach to the anterior lateral aspect of the esophagus. Very nice positioning was achieved was able to inspect around the posterior aspect and felt that I had good positioning. Hemostasis was nicely intact. Having achieved that I then carefully placed a flexible gastroscope with fluid instilled in the abdomen carefully inspected for any type of ear. I actually placed the scope down into the duodenum then came back retroflexed saw the posterior wrap nicely intact. Hemostasis was intact. There was no air leak. Excess fluid and air was aspirated free withdrawn. The EG junction appeared to have been replaced now at 40cm. This appeared to be where the wrap was securing the EG junction. The scope was carefully with move. I then regowned and gloved. I aspirated excess fluid from the chest the spleen was again inspected was very hemostatic the wrap portion appeared to be nicely intact. I closed the 10 mm trocar site with a [id number] suture of 0 Vicryl using a GraNee needle. I then remove the Cuate retractor. Trochars removed under visualization and the abdomen was allowed to deflate of the CO2. Skin edges approximate interrupted 4 Monocryl subdermal stitches. Steri-Strips and Telfa and OpSite dressings applied. Sponge and instrument and needle counts were reported observed to be correct. Specimens none. Drains none. Blood loss 20 cc. The patient was taken to the recovery area in satisfactory condition without apparent complication Stephen Campbell M.D., F.A.C.S. Type of Anesthesia:: General Anesthesiologist: Jeannie Gaytan
[2019-04-20] MEDS: Lactated Ringers 1,000 ML 70 ML IV (12:34)
[2019-04-20] MEDS: Albuterol 2.5 MG/3 ML VIAL.NEB. INHALATION ×2 (14:08→19:57)
[2019-04-20] MEDS: Fluconazole 100 MG Tablet 400 MG PO (14:35)
[2019-04-20] MEDS: Ketorolac 15 MG/ML Vial IV ×2 (14:50→20:55)
[2019-04-20] MEDS: 0.9% NaCl Peripheral Flush Adult/Peds IV (14:50)
[2019-04-20] MEDS: Budesonide Respules 0.5 MG/2 ML AMPUL.NEB. INHALATION (19:57)
[2019-04-20] MEDS: Montelukast 10 MG Tablet PO (20:55)
[2019-04-21 00:27] VITALS: BP 107/73; PULSE 87; RESP 18; TEMP 37.2; O2SAT 95
[2019-04-21] MEDS: Acetaminophen 325 MG Tablet 650 MG PO ×2 (00:29→14:46)
[2019-04-21] MEDS: Lactated Ringers 1,000 ML 70 ML IV (02:06)
[2019-04-21 04:23] VITALS: BP 116/70; PULSE 86; RESP 18; TEMP 37; O2SAT 96
--- NOTE | 2019-04-21 05:40 | PCM.PN.SRG ---
Patient Problems: Active and Suspected Problems (Last Reviewed 04/15/19 @ 06:40 by Perla Rojo) Hiatal hernia with GERD and esophagitis (Acute) Subjective: Sore On oxygen while resting - Physical Exam Lungs: Clear to auscultation Abdomen: Soft, Hypoactive Bowel Sounds, Distended Vital Signs Temp Pulse Resp BP Pulse Ox 98.6 F 86 18 116/70 96 04/21/19 04:23 04/21/19 04:23 04/21/19 04:23 04/21/19 04:23 04/21/19 04:23 Oxygen Flow Rate (L/min) 2 Oxygen Delivery Method Nasal Cannula Weight: 161 lb 6.054 oz Body Mass Index (BMI) 27.6 Intake and Output for Last 24 Hours 04/19/19 04/20/19 04/21/19 23:59 23:59 23:59 Intake Total 1200 / 1616 416 / 416 Balance 1200 / 1616 416 / 416 Medical Necessity - Tobacco Use Smoking Status: Never smoker Assessment/Plan All Active Problems (Last Reviewed 04/15/19 @ 06:40 by Perla Rojo) Hiatal hernia with GERD and esophagitis (Acute) Hx of colonoscopy (Acute) History of esophagogastroduodenoscopy (EGD) (Acute) Sepsis (Ruled-out) Influenza (Acute) Viral pneumonia (Acute) Acute asthma exacerbation (Acute) Acute respiratory alkalosis (Acute) Hypophosphatemia (Acute) Thrombocytopenia (Acute) Anemia (Acute) foot surgery (Acute) S/P lumpectomy, left breast (Acute) S/P breast biopsy, left (Acute) Post corneal transplant (Acute) History of hysterectomy (Acute) History of cataract removal with insertion of prosthetic lens (Acute) History of total left hip replacement (Acute) History of left inguinal hernia repair (Acute) BLADDER PACEMAKER (INTERSTEM) (Acute) Fracture of ankle (Acute) Arthritis (Acute) RIGHT WRIST SURGERIES D/T ARTHRITIS (Acute) Start clears Mobilize pt Plan discharge today
[2019-04-21] MEDS: 0.9% NaCl Peripheral Flush Adult/Peds IV ×3 (06:01→16:49)
[2019-04-21] MEDS: Budesonide Respules 0.5 MG/2 ML AMPUL.NEB. INHALATION (07:17)
[2019-04-21] MEDS: Albuterol 2.5 MG/3 ML VIAL.NEB. INHALATION ×2 (07:17→13:42)
[2019-04-21 07:19] VITALS: PULSE 80; RESP 16; O2SAT 94
[2019-04-21 08:23] VITALS: BP 109/63; PULSE 73; RESP 16; TEMP 37.1; O2SAT 95
[2019-04-21] MEDS: Calcitriol 0.25 MCG Capsule 0.5 MCG PO (09:42)
[2019-04-21] MEDS: Ezetimibe 10 MG Tablet PO (09:43)
[2019-04-21] MEDS: Loratadine 10 MG Tablet PO (09:43)
[2019-04-21] MEDS: Paroxetine 20 MG Tablet PO (09:44)
[2019-04-21] MEDS: Ketorolac 15 MG/ML Vial IV ×2 (09:49→16:48)
--- NOTE | 2019-04-21 11:29 | NURSING ---
Pt up x1 so far this shift- walked 2 laps around halls. States that due to her asthma she has to be careful and that she needs to wait to catch her breath before she walks again. Pt educated and encouraged to be up out of bed every hour and to walk more than 1 lap at a time.
[2019-04-21 13:42] VITALS: PULSE 81; RESP 18; O2SAT 91
[2019-04-21 14:38] VITALS: BP 109/62; PULSE 73; RESP 18; TEMP 37.3; O2SAT 93
== END 2019-04-21 18:21 | disposition home or self-care (01) ==
LOC: SDC 13:35
PROVIDERS: Admitting Provider Surgery; Family Provider Internal Medicine; PCP Internal Medicine; Referring Provider Surgery; Visit Provider Surgery
PROC: (CPT 43325; principal; 2019-04-20 06:55)
DX: K44.9 Diaphragmatic hernia without obstruction or gangrene (principal); K21.0 Gastro-esophageal reflux disease with esophagitis; Z79.899 Other long term (current) drug therapy; Z79.82 Long term (current) use of aspirin; J45.50 Severe persistent asthma, uncomplicated; Z85.3 Personal history of malignant neoplasm of breast; M19.90 Unspecified osteoarthritis, unspecified site; K29.50 Unspecified chronic gastritis without bleeding
CPT/HCPCS: 43281; 36415; 80048; 85027; 93005; 94640; 96374; 96376; 99218; J7120; A4216; G0378; G0379; J2405

== ENCOUNTER → 2019-06-25 14:57 | Outpatient (CLI) | payer MEDICARE, OTHER, SELFPAY ==
[2017-08-14 13:04] VITALS: BMI 24.0
[2019-02-18 09:21] VITALS: BMI 26.6
[2019-06-25 12:41] VITALS: BMI 25.7
--- NOTE | 2019-06-25 15:00 | BI_ITS ---
BILATERAL DIGITAL MAMMOGRAM WITH TOMOSYNTHESIS: Mediolateraloblique and craniocaudal views demonstrate no evidence of dominant parenchymal masses. No cluster of microcalcifications or architectural distortion is seen. No evidence of skin thickening is identified There has been no significant change since 06/16/2018. Breast Density: The breast tissue is heterogeneously dense, which may obscure small masses. CAD was used to assist in final assessment. BI/SCREENING MAMM (CAD), BILAT IMPRESSION: NORMAL MAMMOGRAM BILATERALLY. ASSESSMENT CATEGORY: BIRADS Category 1: Negative. A letter regarding these results will be sent to the patient by the facility within 30 days. A follow-up mammogram on a yearly basis is recommended for further evaluation. Approximately 10% of breast cancers are not detected by mammography. A normal mammogram should not delay biopsy of a clinically suspicious abnormality. [id number] Electronically Signed: Juan Jose Thomas, at 16:40 EDT Tel , Service support ,
== END ==
PROVIDERS: Family Provider Internal Medicine; PCP Internal Medicine; Referring Provider Student in an Organized Health Care Education/Training Program; Visit Provider Student in an Organized Health Care Education/Training Program
DX: Z12.31 Encounter for screening mammogram for malignant neoplasm of breast (principal); C50.912 Malignant neoplasm of unspecified site of left female breast; J45.909 Unspecified asthma, uncomplicated
CPT/HCPCS: 77067; 96372; J0517

== ENCOUNTER → 2019-06-25 | Outpatient (CLI) | payer MEDICARE, OTHER, SELFPAY ==
[2017-08-14 13:04] VITALS: BMI 24.0
[2019-05-07 13:51] VITALS: BMI 27.6
[2019-06-25 12:41] VITALS: BP 105/73; PULSE 73; RESP 16; O2SAT 98; BMI 25.7
[2019-06-25] MEDS: Benralizumab 30 MG/ML Syringe SQ (12:44)
[2019-06-25 13:45] VITALS: BP 113/72; PULSE 73; RESP 16; TEMP 36.6; O2SAT 98
[2019-06-25 14:59] VITALS: BP 116/70; PULSE 70; RESP 16; TEMP 36.6; O2SAT 97
== END | disposition home or self-care (01) ==
PROVIDERS: Family Provider Internal Medicine; PCP Internal Medicine; Referring Provider Internal Medicine Critical Care Medicine; Visit Provider Internal Medicine Critical Care Medicine
DX: J45.909 Unspecified asthma, uncomplicated (principal)
CPT/HCPCS: 96372; J0517

== ENCOUNTER → 2019-07-30 | Outpatient (CLI) | payer MEDICARE, OTHER, SELFPAY ==
[2017-08-14 13:04] VITALS: BMI 24.0
[2019-06-25 12:41] VITALS: BMI 25.7
[2019-07-09 08:26] VITALS: BMI 24.0
[2019-07-16 10:26] VITALS: BMI 25.7
[2019-07-30 08:04] VITALS: BP 105/61; PULSE 79; RESP 16; TEMP 36.6; O2SAT 99; BMI 25.7
[2019-07-30] MEDS: Benralizumab 30 MG/ML Syringe SQ (08:21)
[2019-07-30 10:15] VITALS: BP 104/60; PULSE 69; RESP 16; O2SAT 95
== END | disposition home or self-care (01) ==
LOC: MEDOUTP 07:51
PROVIDERS: Family Provider Internal Medicine; PCP Internal Medicine; Referring Provider Internal Medicine Critical Care Medicine; Visit Provider Internal Medicine Critical Care Medicine
DX: J45.909 Unspecified asthma, uncomplicated (principal)
CPT/HCPCS: 96372; J0517

== ENCOUNTER → 2019-08-27 07:59 | Outpatient (CLI) | payer MEDICARE, OTHER, SELFPAY ==
[2019-07-09 08:26] VITALS: BMI 24.0
[2019-07-31 09:57] VITALS: BMI 25.7
[2019-08-27] MEDS: Benralizumab 30 MG/ML Syringe SQ (08:45)
== END ==
PROVIDERS: Family Provider Internal Medicine; PCP Internal Medicine; Referring Provider Internal Medicine Critical Care Medicine; Visit Provider Internal Medicine Critical Care Medicine
DX: J45.909 Unspecified asthma, uncomplicated (principal)
CPT/HCPCS: 96372; J0517

== ENCOUNTER → 2019-08-28 12:26 | Outpatient (CLI) | payer MEDICARE, OTHER, SELFPAY ==
[2019-07-09 08:26] VITALS: BMI 24.0
[2019-07-31 09:57] VITALS: BMI 25.7
--- NOTE | 2019-08-28 12:38 | RAD_ITS ---
STUDY: X-RAY - PELVIS AND RIGHT HIP REASON FOR EXAM: Female, 64 years old. Pain. TECHNIQUE: 3 views of the pelvis and hip. COMPARISON: None. FINDINGS: There is a non-specific bowel gas pattern. Normal visualized soft tissue structures. Neurostimulator is seen in place. There is narrowing with cortical sclerosis and osteophyte formation of the sacroiliac joint consistent with mild degenerative osteoarthritic changes. Normal bilateral superior and inferior pubic rami. Normal pubic symphysis. Normal bilateral ischial tuberosities. There is a left-sided hip prosthesis in place. Normal visualized femoral head. There is osteoarthritic spur formation of the acetabular rim with irregularity at the upper acetabular rim and lucency which may indicate sequela of avulsion injury, age indeterminate. There is mild articular joint space narrowing of the hip. RAD/HIP, UNI W/ Pelvis 2-3 Views IMPRESSION: Degenerative disease of the right hip. Possible sequela of avulsion injury involving the upper acetabulum, age indeterminate. Clinical correlation recommended. Electronically Signed: Karina Garcia MD at 2:22 EST , Service support ,
== END ==
PROVIDERS: Family Provider Internal Medicine; PCP Internal Medicine; Referring Provider Internal Medicine; Visit Provider Internal Medicine
DX: M25.551 Pain in right hip (principal)
CPT/HCPCS: 73502

== ENCOUNTER → 2019-09-10 07:59 | Outpatient (CLI) | payer MEDICARE, OTHER, SELFPAY ==
[2019-07-09 08:26] VITALS: BMI 24.0
[2019-07-31 09:57] VITALS: BMI 25.7
--- NOTE | 2019-09-10 08:25 | BD_ITS ---
STUDY: DUAL ENERGY X-RAY ABSORPTIOMETRY / DXA REASON FOR EXAM: Female, 64 years old. 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 COMPARISON: Comparison is made with prior study dated August 20, 2017. FINDINGS: Lumbar Spine (L1-L4): g/cm2 (1.104) / T-score (-0.6) / Z-score (1.0) Findings are suggestive of normal bone density with a low fracture risk. Right Femur Total: g/cm2 (0.783) / T-score (-1.8) / Z-score (-0.5) Right Femoral Neck: g/cm2 (0.732) / T-score (-2.2) / Z-score (-0.7) The T-Scores on the most recent prior examination were: Lumbar Spine (L1-L4): There has been improvement of bone density since the previous examination. Right Femur Total: which represents an improvement of 4.5%. BD/Dexa Bone Density Study IMPRESSION: The patient is considered osteopenic as outlined below according to World Dereck Organization (WHO) criteria with a moderate fracture risk. There has been improvement of bone density since the previous examination. Reference Information: The T-score is the number of standard deviations above or below the standard which is normal for young adults at their peak bone mineral density. The World Health Organization (WHO) interprets the T-scores as follows: Above -1 Normal bone density Between -1 and -2.5 Osteopenia Equal to / or below -2.5 Osteoporosis As a practical clinical guideline, osteopenia may be graded as follows: Mild -1 through -1.5 Moderate -1.6 through -2.0 Severe -2.1 through -2.4 The Z-score is the number of standard deviations above or below age-matched controls. A Z-score of less than -1.5 would be considered abnormal. References: 1. NIH Osteoporosis and Related Bone Diseases http://www.osteo.org 2. International Society for Clinical Densitometry http://www.iscd.org 3. National Osteoporosis Foundation http://www.nof.org Electronically Signed: Bo Villalpando, at 15:52 EST , Service support ,
== END ==
PROVIDERS: Family Provider Internal Medicine; PCP Internal Medicine; Referring Provider Internal Medicine; Visit Provider Internal Medicine
DX: Z12.39 Encounter for other screening for malignant neoplasm of breast (principal); Z78.0 Asymptomatic menopausal state
CPT/HCPCS: 77080

== ENCOUNTER 2019-09-26 18:47 | Emergency (ER) | payer MEDICARE, OTHER, SELFPAY ==
[2019-07-09 08:26] VITALS: BMI 24.0
[2019-07-31 09:57] VITALS: BMI 25.7
[2019-09-26 18:48] VITALS: BP 121/102; PULSE 92; RESP 16; TEMP 37.2; O2SAT 99; BMI 25.7
[2019-09-26 19:27] LABS: Bacteria 0 SEEN /hpf (None Seen); Mucous, Urine 0 SEEN /hpf (<or=2+); Red Blood Cells-Urine 0 SEEN /hpf (0-5)
[2019-09-26 19:29] LABS: Color, Urine Straw (Yellow); Glucose, Dipstick Normal (Normal); Ketone-Dipstick Negative (Negative); Leukocyte Esterase-Dipstick 100 /ul (Negative); Nitrite-Dipstick Negative (Negative); Occult Blood-Urine 10 /ul (Negative); Protein-Dipstick Negative (Negative); Urine Bilirubin Dipstick Negative (Negative); Urine Clarity Sl. Cloudy (Clear); Urine Urobilinogen Normal (Normal); Urine pH 6.5 (5.0 - 8.0)
[2019-09-26 19:51] LABS: Squamous Epithelial Cells - UA 0-5 SEEN /hpf (5-10); White Blood Cells 0-5 SEEN /hpf (0-5)
--- NOTE | 2019-09-26 20:05 | ED.VIS.GEN ---
History of Present Illness Chief Complaint: Complaint Informant: Patient Onset: Today Narrative: Patient reports low back pain, dysuria and possible urinary retention. She notes nausea. Symptoms began today. He notes generalized body aches and fatigue. No cough or rhinorrhea. No Rashes Past Medical History - Allergies and Home Meds Allergies/Adverse Reactions: Allergies ampicillin Allergy (Severe, Verified 09/26/19 18:47) Other DRUG FEVER cefaclor [From Ceclor] Allergy (Severe, Verified 09/26/19 18:47) Other DRUG FEVER ciprofloxacin [From Cipro] Allergy (Severe, Verified 09/26/19 18:47) Anaphylaxis ciprofloxacin HCl [From Cipro] Allergy (Severe, Verified 09/26/19 18:47) Anaphylaxis Penicillins Allergy (Severe, Verified 09/26/19 18:47) Other DRUG FEVER shellfish derived Allergy (Severe, Verified 09/26/19 18:47) Anaphylaxis vancomycin Allergy (Severe, Verified 09/26/19 18:47) Swelling Primary Care Physician: Genesis Baldwin DO [Primary Care Provider] - Surgical History: - Smoking Status: Never smoker - Family History Maternal Family History: Family History (Last Reviewed 07/16/19 @ 10:32 by AMMON Romo) Mother Rheumatoid arthritis Pulmonary embolism Phlebitis Father CHF (congestive heart failure) Sister Diabetes Phlebitis Family History: Reports: Clotting Disorder, - Sibling Family History: Family History (Last Reviewed 07/16/19 @ 10:32 by AMMON Romo) Mother Rheumatoid arthritis Pulmonary embolism Phlebitis Father CHF (congestive heart failure) Sister Diabetes Phlebitis Family History: Reports: Clotting Disorder, - Review of Systems General: Reports: Malaise. Denies: Chills, Fever, Sweats Eyes: Denies: Visual changes - bilaterally, Diplopia ENT: Denies: Rhinorrhea, Sore throat Cardiovascular: Denies: Chest pain, Palpitations Respiratory: Denies: Dyspnea, Cough, Dyspnea on exertion Gastrointestinal: Reports: Nausea. Denies: Abdominal pain, Vomiting, Diarrhea, Melena, Hematochezia Genitourinary: Denies: Dysuria, Hematuria, Frequency Musculoskeletal: Reports: Myalgias, Back pain. Denies: Extremity Pain Skin: Denies: Rash, Wounds Neurological: Denies: Headache, Weakness, Numbness Psych: Denies: Suicidal thoughts, Suicidal ideations Endocrine: Denies: Heat intolerance, Cold intolerance Hematologic: Denies: Easy bruising, Easy bleeding Allergy: Denies: Swelling of the mouth, Swelling of the tongue Physical Exam Vital Signs/Narrative: Vital Signs Temp Pulse Resp BP Pulse Ox 09/26/19 18:48 99.0 F 92 16 121/102 H 99 Inital Vital Signs reviewed: Yes General: Well nourished, Well developed, No Acute Distress Head: Normocephalic, Atraumatic Eyes: Perrl, EOMI ENT: Moist mucous membranes, No rhinorrhea Neck: Supple, Nontender Cardiovascular: Regular rate, Regular rhythm, No murmurs Respiratory: No distress, CTA bilaterally, Chest nontender Abdomen: Soft, Nontender, Nondistended, Normal bowel sounds Back: Nontender, Normal Inspection Extremities: Nontender, No edema Skin: Normal color, No rash Neurological: Alert, Oriented x3, Cranial nerves II-XII grossly intact, Normal Strength, Normal Sensation Psychological: Normal affect, Normal Mood Diagnostic/Tx/Re-eval - Medical Decision Making Urine specimen was negative. White count is normal. CT the abdomen pelvis obtained which was also negative. Patient then spiked a fever up to 101. Influenza and RSV swabs were negative.0 I think is most likely a viral illness. Would recommend continued supportive care and fever control and oral hydration. ED Disposition - Plan for ED Patient: Disposition: Home or Assisted Living Diagnosis: Influenza-like illness Instructions: VIRAL SYNDROME (Adult) Referrals: Genesis Baldwin DO [Primary Care Provider] - 3-5 Days
[2019-09-26 20:25] LABS: Absolute Lymphocyte Count 1.06 X10^3/uL (0.83-4.51); Absolute Neutrophil Count 6.4 X10^3/uL (2.0-7.7); Basophil# 0.01 X10^3/uL; Basophil% 0.1 % (0-1); Differential Indicated SCAN CRITERIA MET; Eosinophil# 0.11 X10^3/uL; Eosinophils% 1.3 % (0-5); Hematocrit 38.7 % (37-47); Hemoglobin 12.2 g/dL (12.0-15.0); Lymphocyte # 1.06 X10^3/ul (4.0); Lymphocyte % 12.8 % (19-41); Mean Corp Hgb Conc 31.5 g/dL (32-36); Mean Corpuscular Hgb 29.2 pg (27.0-32.0); Mean Corpuscular Volume 92.6 fL (81-99); Mean Platelet Vol. 10.6 fl (6.2-12.0); Monocyte# 0.74 X10^3/uL; Monocyte% 8.9 % (0-10); NRBC Flagged by Analyzer 0 % (0-5); Neutrophil # 6.35 X10^3/uL (2.7-7.7); Neutrophil % 76.8 % (47-70); POSITIVE MORPHOLOGY YES; Platelet Count 255 K/mm3 (150-450); RBC Distribution Width CV 13.8 % (11.6-14.6); RBC Distribution Width SD 47.1 fl (35.1-43.9); Red Blood Count 4.18 M/mm3 (4.2-5.4); White Blood Count 8.3 K/mm3 (4.4-11.0)
[2019-09-26 20:42] LABS: ALB/GLOB Ratio 0.8 RATIO (0.9-2.4); AST(SGOT) 26 U/L (15-37); Alanine Aminotransfer ALT/SGPT 35 U/L (13-56); Albumin, Serum 3.1 g/dL (3.2-5.0); Alkaline Phosphatase 63 U/L (45-117); Anion Gap 6 (5-15); BUN 18 mg/dL (7-18); BUN/Creat Ratio 21.2 RATIO (10-20); Calcium,Total 8.6 mg/dL (8.5-10.1); Chloride 107 mmol/L (98-107); Creatinine, Serum 0.85 mg/dL (0.55-1.02); EST Glomerular Filtration Rate 71 mL/min (>60); Est Glom Filt Rate - Afr Amer 86 mL/min (>60); Estimated Creatinine Clearance 56.22 ml/min; Globulin 3.7 g/dL (2.2-4.2); Glucose 131 mg/dL (74-106); Lipase 144 U/L (73-393); Protein, Total 6.8 g/dL (6.4-8.2); Sodium Level 140 mmol/L (136-145); Total Bilirubin < 0.10 mg/dL (0.20-1.00)
[2019-09-26 20:59] VITALS: TEMP 38.2
--- NOTE | 2019-09-26 21:04 | CT_ITS ---
HISTORY: LOW BACK PAIN AND FEVER. From a CT scan of August 15, 2017, the patient did have left breast malignancy. TECHNIQUE: Helically acquired images were obtained of the abdomen and pelvis without oral or IV contrast. A radiation dose optimization technique was used for this scan. COMPARISON: Radiation therapy planning CT scan of the chest extends down to below the kidneys from August 15, 2017 FINDINGS: # of images incl. paperwork: 451 LUNG BASES: Pulmonary hyperexpansion. Minimal age-related fibrotic disease. CT abdomen: Gastroesophageal junction surgery. The stomach is somewhat distended with food. Facet arthropathy within the lower lumbar spine. Left gluteal implanted stimulator device extends through sacral foramina into the right hemipelvis may be related to bladder dysfunction. Left total hip arthroplasty The gallbladder remains. Liver, spleen, pancreas, and adrenal glands are normal. The kidneys are normal. The aorta is diseased with atherosclerotic plaque, but without aneurysm. There is no intra-or extrahepatic biliary ductal dilatation. CT pelvis: No ascites is present. The uterus has been resected. The appendix is normal. Series 2 image 123. The bladder is distended. Bowel gas pattern is normal. CT/Abdomen/Pelvis without Cont IMPRESSION: No acute intra-abdominal or pelvic disease. Individualized dose optimization techniques were used for this CT. at 2154 Reported and signed by: Herbert Perrin MD Electronically Signed: Herbert Perrin MD at 21:53 EST Tel , Service support ,
[2019-09-26 21:13] LABS: Differential Comment SCANNED; Platelet Estimate ADEQUATE (ADEQ); Red Cell Morphology NORM C+C NORMAL (NORM C&C)
[2019-09-26 21:36] VITALS: BP 116/69; PULSE 84; RESP 16; TEMP 38.8; O2SAT 100
[2019-09-26] MEDS: Acetaminophen 500 MG Tablet 1000 MG PO (21:57)
[2019-09-26 22:34] VITALS: BP 119/65; PULSE 87; RESP 16; O2SAT 99
== END 2019-09-26 22:35 | disposition home or self-care (01) ==
PROVIDERS: Emergency Provider Emergency Medicine; Family Provider Internal Medicine; PCP Internal Medicine
DX: J11.1 Influenza due to unidentified influenza virus with other respiratory manifestations (principal); R30.0 Dysuria
CPT/HCPCS: 74176; 80053; 81001; 83690; 85025; 87804; 87807; 99284; A4216

== ENCOUNTER → 2019-10-09 20:05 | Outpatient (CLI) | payer MEDICARE, OTHER, SELFPAY ==
[2019-07-09 08:26] VITALS: BMI 24.0
[2019-09-26 18:48] VITALS: BMI 25.7
[2019-10-07 14:16] VITALS: BMI 25.7
== END ==
PROVIDERS: Family Provider Internal Medicine; PCP Internal Medicine; Referring Provider Internal Medicine; Visit Provider Internal Medicine
DX: G47.10 Hypersomnia, unspecified (principal); R53.83 Other fatigue; R06.81 Apnea, not elsewhere classified
CPT/HCPCS: 95810

== ENCOUNTER → 2019-10-23 10:02 | Outpatient (CLI) | payer MEDICARE, OTHER, SELFPAY ==
[2019-07-09 08:26] VITALS: BMI 24.0
[2019-10-07 14:16] VITALS: BMI 25.7
[2019-10-22 13:20] VITALS: BMI 24.7
[2019-10-23 10:12] VITALS: BP 110/64; PULSE 71; RESP 18; TEMP 35.8; O2SAT 96; BMI 24.5
[2019-10-23] MEDS: Benralizumab 30 MG/ML Syringe SQ (10:25)
[2019-10-23 10:53] VITALS: BP 100/63; PULSE 74; RESP 18; TEMP 36.1; O2SAT 97
== END ==
PROVIDERS: PCP Internal Medicine; Referring Provider Nurse Practitioner Acute Care; Visit Provider Nurse Practitioner Acute Care
DX: J45.51 Severe persistent asthma with (acute) exacerbation (principal)
CPT/HCPCS: 96372; J0517

== ENCOUNTER → 2019-10-30 20:12 | Outpatient (CLI) | payer MEDICARE, OTHER, SELFPAY ==
[2019-07-09 08:26] VITALS: BMI 24.0
[2019-10-07 14:16] VITALS: BMI 25.7
[2019-10-23 10:12] VITALS: BMI 24.5
== END ==
PROVIDERS: PCP Internal Medicine; Referring Provider Internal Medicine Critical Care Medicine; Visit Provider Internal Medicine Critical Care Medicine
DX: G47.33 Obstructive sleep apnea (adult) (pediatric) (principal)
CPT/HCPCS: 95811

== ENCOUNTER → 2019-12-18 10:29 | Outpatient (CLI) | payer MEDICARE, OTHER, SELFPAY ==
[2019-07-09 08:26] VITALS: BMI 24.0
[2019-10-23 10:12] VITALS: BMI 24.5
[2019-12-18 10:58] VITALS: BP 107/64; PULSE 69; RESP 18; TEMP 35.6; O2SAT 97; BMI 24.5
[2019-12-18] MEDS: Benralizumab 30 MG/ML Syringe SQ (11:03)
[2019-12-18 11:35] VITALS: BP 110/67; PULSE 68; RESP 16
== END ==
PROVIDERS: PCP Internal Medicine; Referring Provider Nurse Practitioner Acute Care; Visit Provider Nurse Practitioner Acute Care
DX: J45.51 Severe persistent asthma with (acute) exacerbation (principal)
CPT/HCPCS: 96372; J0517

== ENCOUNTER → 2020-02-18 10:58 | Outpatient (CLI) | payer MEDICARE, OTHER, SELFPAY ==
[2019-07-09 08:26] VITALS: BMI 24.0
[2020-02-04 14:09] VITALS: BMI 24.8
[2020-02-18] MEDS: Benralizumab 30 MG/ML Syringe SQ (11:12)
[2020-02-18 11:15] VITALS: BP 91/60; PULSE 61; RESP 16; TEMP 36.8; O2SAT 96; BMI 24.0
[2020-02-18 11:43] VITALS: BP 101/62; PULSE 62; RESP 16; TEMP 37
== END ==
PROVIDERS: PCP Internal Medicine; Referring Provider Nurse Practitioner Acute Care; Visit Provider Nurse Practitioner Acute Care
DX: J45.51 Severe persistent asthma with (acute) exacerbation (principal)
CPT/HCPCS: 96372; J0517

== ENCOUNTER → 2020-03-10 17:25 | Outpatient (CLI) | payer MEDICARE, OTHER, SELFPAY ==
[2019-07-09 08:26] VITALS: BMI 24.0
[2020-02-18 11:15] VITALS: BMI 24.0
== END ==
PROVIDERS: PCP Internal Medicine; Referring Provider Dermatology; Visit Provider Dermatology
DX: J45.51 Severe persistent asthma with (acute) exacerbation (principal); B35.1 Tinea unguium; L60.1 Onycholysis; J34.89 Other specified disorders of nose and nasal sinuses; L82.0 Inflamed seborrheic keratosis; L53.8 Other specified erythematous conditions
CPT/HCPCS: 87070; 87077; 87186; 87205

== ENCOUNTER → 2020-04-15 13:55 | Outpatient (CLI) | payer MEDICARE, OTHER, SELFPAY ==
[2019-07-09 08:26] VITALS: BMI 24.0
[2020-02-04 14:09] VITALS: BMI 24.8
[2020-04-14 05:47] VITALS: BMI 24.7
[2020-04-15 14:20] VITALS: BP 95/46; PULSE 73; RESP 16; TEMP 36.4; O2SAT 96; BMI 24.7
[2020-04-15] MEDS: Benralizumab 30 MG/ML Syringe SQ (14:26)
== END ==
PROVIDERS: PCP Internal Medicine; Referring Provider Nurse Practitioner Acute Care; Visit Provider Nurse Practitioner Acute Care
DX: J45.51 Severe persistent asthma with (acute) exacerbation (principal)
CPT/HCPCS: 96372; J0517

== ENCOUNTER → 2020-06-10 09:53 | Outpatient (CLI) | payer MEDICARE, OTHER, SELFPAY ==
[2019-07-09 08:26] VITALS: BMI 24.0
[2020-04-14 05:47] VITALS: BMI 24.7
[2020-04-15 14:20] VITALS: BMI 24.7
[2020-06-10 10:35] VITALS: BP 125/90; PULSE 100; RESP 16; TEMP 37.2; O2SAT 100; BMI 24.9
[2020-06-10] MEDS: Benralizumab 30 MG/ML Syringe SQ (10:42)
[2020-06-10 11:37] VITALS: BP 116/68; PULSE 91; RESP 16; TEMP 36.9; O2SAT 100
== END ==
PROVIDERS: PCP Internal Medicine; Referring Provider Nurse Practitioner Acute Care; Visit Provider Nurse Practitioner Acute Care
DX: J45.51 Severe persistent asthma with (acute) exacerbation (principal)
CPT/HCPCS: 96372; J0517

== ENCOUNTER → 2020-06-30 09:52 | Outpatient (CLI) | payer MEDICARE, OTHER, SELFPAY ==
[2019-07-09 08:26] VITALS: BMI 24.0
[2020-02-04 13:25] VITALS: BMI 24.8
[2020-06-10 10:35] VITALS: BMI 24.9
--- NOTE | 2020-06-30 09:53 | BI_ITS ---
MAMMOGRAPHY - BILATERAL SCREENING REASON FOR EXAM: Female, 65 years old. Routine annual screening examination. PERTINENT HISTORY: Personal history of breast cancer. Prior left lumpectomy and radiation therapy. TECHNIQUE: Digital bilateral breast janie (3D mammographic acquisition) in the CC and MLO projections. 2-D mediolateral oblique (MLO) and craniocaudad (CC) views of both breasts were obtained. CAD: Full Field Digital Mammography with Computer Added Detection was performed. COMPARISON: Comparison is made with prior study dated 06/25/2019 and 06/16/2018. FINDINGS: Breast Composition: The breasts are heterogeneously dense, which may obscure small masses. There are no dominant masses or suspicious calcifications. Stable postoperative change in the upper outer aspect of the left breast with resultant architectural distortion. Surgical clips are once again seen in the left axillary region. No other significant abnormalities are identified. There has been no significant change since the prior study. BI/SCREEN MAMM (CAD) W/JANIE BILAT IMPRESSION: Stable bilateral screening mammogram. Yearly follow-up mammogram recommended. (A) ASSESSMENT CATEGORY: BIRADS Category 2: Benign. A letter regarding these results will be sent to the patient by the facility within 30 days. Approximately 10% of breast cancers are not detected by mammography. A normal mammogram should not delay biopsy of a clinically suspicious abnormality. [id number] Electronically Signed: Bo Villalpando, at 12:30 EDT , Service support ,
== END ==
PROVIDERS: PCP Internal Medicine; Referring Provider Internal Medicine Hematology & Oncology; Visit Provider Internal Medicine Hematology & Oncology
DX: Z12.31 Encounter for screening mammogram for malignant neoplasm of breast (principal); C50.912 Malignant neoplasm of unspecified site of left female breast
CPT/HCPCS: 77063; 77067

== ENCOUNTER → 2020-08-05 13:54 | Outpatient (CLI) | payer MEDICARE, OTHER, SELFPAY ==
[2019-07-09 08:26] VITALS: BMI 24.0
[2020-04-15 14:20] VITALS: BMI 24.7
[2020-08-04 15:33] VITALS: BMI 24.7
[2020-08-05 14:26] VITALS: BP 103/61; PULSE 90; RESP 16; TEMP 37.3; O2SAT 95; BMI 24.7
[2020-08-05] MEDS: Benralizumab 30 MG/ML Syringe SQ (14:29)
[2020-08-05 15:04] VITALS: BP 111/71; PULSE 80; RESP 16; TEMP 37.3; O2SAT 95
== END ==
PROVIDERS: PCP Internal Medicine; Referring Provider Nurse Practitioner Acute Care; Visit Provider Nurse Practitioner Acute Care
DX: J45.51 Severe persistent asthma with (acute) exacerbation (principal)
CPT/HCPCS: 96372; J0517

== ENCOUNTER → 2020-09-30 08:37 | Outpatient (CLI) | payer MEDICARE, OTHER, SELFPAY ==
[2019-07-09 08:26] VITALS: BMI 24.0
[2020-08-04 15:33] VITALS: BMI 24.7
[2020-08-09 14:40] VITALS: BMI 25.0
[2020-09-30 08:55] VITALS: BP 111/76; PULSE 83; RESP 16; TEMP 36.8; O2SAT 98; BMI 25.0
[2020-09-30] MEDS: Benralizumab 30 MG/ML Syringe SQ (08:59)
[2020-09-30 09:33] VITALS: BP 122/89
== END ==
PROVIDERS: PCP Internal Medicine; Referring Provider Nurse Practitioner Acute Care; Visit Provider Nurse Practitioner Acute Care
DX: J45.51 Severe persistent asthma with (acute) exacerbation (principal)
CPT/HCPCS: 96372; J0517

== ENCOUNTER 2020-11-22 08:00 | Outpatient (RCR) | payer MEDICARE, OTHER, SELFPAY ==
[2019-07-09 08:26] VITALS: BMI 24.0
[2020-10-13 10:01] VITALS: BMI 24.7
[2020-11-22] MEDS: COVID-19 VACC, MRNA(PFIZER)/PF 30 MCG/0.3 ML SYRINGE IM (14:19)
[2020-12-13] MEDS: COVID-19 VACC, MRNA(PFIZER)/PF 30 MCG/0.3 ML SYRINGE IM (14:10)
== END 2021-02-21 23:59 ==
LOC: IMMUN 08:00
PROVIDERS: PCP Internal Medicine; Visit Provider Family Medicine
DX: Z23 Encounter for immunization (principal)
CPT/HCPCS: 0001A; 0002A; 91300

== ENCOUNTER 2020-11-25 14:02 | Outpatient (CLI) | payer MEDICARE, OTHER, SELFPAY ==
[2019-07-09 08:26] VITALS: BMI 24.0
[2020-08-09 14:40] VITALS: BMI 25.0
[2020-10-13 10:01] VITALS: BMI 24.7
[2020-11-25 14:17] VITALS: BP 103/67; PULSE 80; RESP 16; TEMP 36.2; O2SAT 96; BMI 25.0
[2020-11-25] MEDS: Benralizumab 30 MG/ML Syringe SC (14:21)
== END 2020-11-25 17:00 | disposition home or self-care (01) ==
LOC: MEDOUTP 14:02
PROVIDERS: PCP Internal Medicine; Referring Provider Nurse Practitioner Acute Care; Visit Provider Nurse Practitioner Acute Care
DX: J45.51 Severe persistent asthma with (acute) exacerbation (principal)
CPT/HCPCS: 96372; J0517

== ENCOUNTER → 2021-01-20 14:59 | Outpatient (CLI) | payer MEDICARE, OTHER, SELFPAY ==
[2019-07-09 08:26] VITALS: BMI 24.0
[2020-10-13 10:01] VITALS: BMI 24.7
[2021-01-20 15:28] VITALS: BP 107/60; PULSE 71; RESP 16; TEMP 37.1; O2SAT 98; BMI 25.5
[2021-01-20] MEDS: Benralizumab 30 MG/ML Syringe SC (15:32)
== END ==
PROVIDERS: PCP Internal Medicine; Referring Provider Nurse Practitioner Acute Care; Visit Provider Nurse Practitioner Acute Care
DX: J45.51 Severe persistent asthma with (acute) exacerbation (principal)
CPT/HCPCS: 96372; J0517

== ENCOUNTER → 2021-03-07 16:25 | Outpatient (CLI) | payer MEDICARE, OTHER, SELFPAY ==
[2019-07-09 08:26] VITALS: BMI 24.0
[2021-02-07 13:38] VITALS: BMI 25.9
--- NOTE | 2021-03-07 16:29 | RAD_ITS ---
STUDY: X-RAY - LEFT FOOT CLINICAL: Female, 65 years old. SWELLING FOOT AND ANKLE TECHNIQUE: view(s) of the foot. COMPARISON: None. FINDINGS: Normal talus, calcaneus, and tarsal bones. Normal visualized subtalar, talonavicular, calcaneocuboid, tarsal and tarsometatarsal articulations. Normal metatarsi. Normal metatarsophalangeal joint of the great toe. Normal tibial and fibular sesamoid bones. Normal interphalangeal joint of the great toe. Normal phalanges of the great toe. Normal second through fifth metatarsophalangeal joints. Normal interphalangeal joints and phalanges of the lesser toes. The soft tissue structures are unremarkable. RAD/Foot min 3 Views IMPRESSION: Normal x-ray examination of the foot. Electronically Signed: Jhon Borden, at 14:43 EDT Tel , Service support ,
== END ==
PROVIDERS: PCP Internal Medicine; Referring Provider Internal Medicine; Visit Provider Internal Medicine
DX: M25.472 Effusion, left ankle (principal)
CPT/HCPCS: 73630

== ENCOUNTER → 2021-03-17 14:00 | Outpatient (CLI) | payer MEDICARE, OTHER, SELFPAY ==
[2019-07-09 08:26] VITALS: BMI 24.0
[2021-02-07 13:38] VITALS: BMI 25.9
[2021-03-17] MEDS: Benralizumab 30 MG/ML Syringe SC (14:08)
[2021-03-17 14:09] VITALS: BP 128/76; PULSE 75; RESP 16; TEMP 36.4; O2SAT 96; BMI 25.9
== END ==
PROVIDERS: PCP Internal Medicine; Referring Provider Nurse Practitioner Acute Care; Visit Provider Nurse Practitioner Acute Care
DX: J45.51 Severe persistent asthma with (acute) exacerbation (principal)
CPT/HCPCS: 96372; J0517

== ENCOUNTER → 2021-05-12 13:52 | Outpatient (CLI) | payer MEDICARE, OTHER, SELFPAY ==
[2019-07-09 08:26] VITALS: BMI 24.0
[2021-02-07 13:38] VITALS: BMI 25.9
[2021-05-12 13:57] VITALS: BP 121/67; PULSE 74; RESP 16; TEMP 36
[2021-05-12] MEDS: Benralizumab 30 MG/ML Syringe SC (14:00)
== END ==
PROVIDERS: PCP Internal Medicine; Referring Provider Nurse Practitioner Acute Care; Visit Provider Nurse Practitioner Acute Care
DX: J45.51 Severe persistent asthma with (acute) exacerbation (principal)
CPT/HCPCS: 96372; J0517

== ENCOUNTER → 2021-05-16 08:05 | Outpatient (CLI) | payer MEDICARE, OTHER, SELFPAY ==
[2019-07-09 08:26] VITALS: BMI 24.0
--- NOTE | 2021-05-16 08:11 | MRI_ITS ---
STUDY: MRI LEFT FOREFOOT WITHOUT CONTRAST REASON FOR EXAM: Metatarsal pain, greatest between the third and fourth metatarsals, surgery for neuroma more than 40 years ago. TECHNIQUE: Standardized fat and water weighted pulse sequences were obtained in all 3 orthogonal planes. COMPARISON: Radiographs 03/07/2021. FINDINGS: There is mild arthrosis of the metatarsophalangeal joint of the hallux with small marginal osteophytes and mild chondral thinning (T1 sagittal image 24). Normal tibial and fibular sesamoids, with normal sesamoids-first metatarsal articulations. Normal interphalangeal joint of the hallux. Normal proximal and distal phalanges of the great toe. Normal medial and lateral heads of the flexor hallucis brevis tendons. Normal flexor and extensor hallucis longus tendons. Normal second through fifth metatarsophalangeal (MTP) joints. Normal interphalangeal joints of the second through fifth toes. Normal proximal, middle and distal phalanges of the second through fifth toes. There is soft tissue fullness at the plantar aspect of the second webspace (T1 series 3 images 22, 23) measuring 0.3 cm in transverse dimension. There is mild intermetatarsal bursitis of the first and second webspaces (inversion recovery series 5 images 23, 24). Normal flexor and extensor tendons of the second through fifth toes. There is bone edema of the base and diaphysis of the second metatarsal (inversion recovery sagittal images 15, 16), a stress phenomenon. Otherwise, unremarkable metatarsals. Normal intrinsic muscles of the forefoot. There is mild edema in the dorsal subcutis adipose space. 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 Bone edema of the second metatarsal, a stress phenomenon. Mild arthrosis of the first metatarsophalangeal joint. Mild intermetatarsal bursitis of the first and second webspaces. Electronically Signed: Rob Tidwell MD at 12:37 EDT Tel , Service support ,
== END ==
PROVIDERS: PCP Internal Medicine; Referring Provider Podiatrist; Visit Provider Podiatrist
DX: S92.302A Fracture of unspecified metatarsal bone(s), left foot, initial encounter for closed fracture (principal)
CPT/HCPCS: 73718

== ENCOUNTER → 2021-05-23 13:20 | Outpatient (CLI) | payer MEDICARE, OTHER, SELFPAY ==
[2019-07-09 08:26] VITALS: BMI 24.0
[2021-05-23 15:32] LABS: Anion Gap 4 (5-15); BUN 17 mg/dL (7-18); BUN/Creat Ratio 17.7 RATIO (10-20); Calcium,Total 9.8 mg/dL (8.5-10.1); Chloride 102 mmol/L (98-107); Creatinine, Serum 0.96 mg/dL (0.55-1.02); EST Glomerular Filtration Rate 61 mL/min (>60); Est Glom Filt Rate - Afr Amer 74 mL/min (>60); Glucose 99 mg/dL (74-106); Sodium Level 137 mmol/L (136-145)
[2021-05-23 15:34] LABS: Vitamin D,25 Hydroxy 63.1 ng/mL
== END ==
PROVIDERS: PCP Internal Medicine; Referring Provider Podiatrist; Visit Provider Podiatrist
DX: M84.375A Stress fracture, left foot, initial encounter for fracture (principal); M81.0 Age-related osteoporosis without current pathological fracture
CPT/HCPCS: 36415; 80048; 82306

== ENCOUNTER → 2021-07-03 10:26 | Outpatient (CLI) | payer MEDICARE, OTHER, SELFPAY ==
[2019-07-09 08:26] VITALS: BMI 24.0
[2021-02-07 13:38] VITALS: BMI 25.9
--- NOTE | 2021-07-03 10:28 | BI_ITS ---
MAMMOGRAPHY - BILATERAL SCREENING REASON FOR EXAM: Female, 66 years old. Routine annual screening examination. PERTINENT HISTORY: Personal history of breast cancer. Prior left lumpectomy. Prior right needle breast biopsy. TECHNIQUE: Digital bilateral breast janie (3D mammographic acquisition) in the CC and MLO projections. 2-D mediolateral oblique (MLO) and craniocaudad (CC) views of both breasts were obtained. CAD: Full Field Digital Mammography with Computer Added Detection was performed. COMPARISON: Comparison is made with prior study dated 06/30/2020 and 06/25/2019. FINDINGS: Breast Composition: The breasts are heterogeneously dense, which may obscure small masses. There are no dominant masses or suspicious calcifications. Surgical clips are once again seen in the left axillary region. Stable postoperative changes in the upper outer aspect of the left breast secondary to prior lumpectomy. No other significant abnormalities are identified. There has been no significant change since the prior study. BI/SCRN MAMM (CAD)W/JANIE BILAT IMPRESSION: Stable bilateral screening mammogram. Yearly follow-up mammogram recommended. (A) ASSESSMENT CATEGORY: BIRADS Category 2: Benign. A letter regarding these results will be sent to the patient by the facility within 30 days. Approximately 10% of breast cancers are not detected by mammography. A normal mammogram should not delay biopsy of a clinically suspicious abnormality. [id number] Electronically Signed: Bo Villalpando MD at 11:17 EDT , Service support ,
== END ==
PROVIDERS: PCP Internal Medicine; Referring Provider Internal Medicine Hematology & Oncology; Visit Provider Internal Medicine Hematology & Oncology
DX: Z12.31 Encounter for screening mammogram for malignant neoplasm of breast (principal)
CPT/HCPCS: 77063; 77067

== ENCOUNTER → 2021-07-14 14:19 | Outpatient (CLI) | payer MEDICARE, OTHER, SELFPAY ==
[2019-07-09 08:26] VITALS: BMI 24.0
[2021-07-14 14:24] VITALS: BP 108/62; PULSE 91; RESP 16; TEMP 35.8; O2SAT 95; BMI 24.9
[2021-07-14] MEDS: Benralizumab 30 MG/ML Syringe SC (14:29)
== END ==
PROVIDERS: PCP Internal Medicine; Referring Provider Nurse Practitioner Acute Care; Visit Provider Nurse Practitioner Acute Care
DX: J45.51 Severe persistent asthma with (acute) exacerbation (principal)
CPT/HCPCS: 96372; J0517

== ENCOUNTER → 2021-09-12 13:36 | Outpatient (CLI) | payer MEDICARE, OTHER, SELFPAY ==
[2019-07-09 08:26] VITALS: BMI 24.0
--- NOTE | 2021-09-12 13:39 | BD_ITS ---
STUDY: DUAL ENERGY X-RAY ABSORPTIOMETRY / DXA REASON FOR EXAM: Female, 66 years old. OSTEOPOROSIS TECHNIQUE: Bone Mineral Density (BMD) measurements of lumbar spine and right forearm were obtained. COMPARISON: Comparison is made with prior study dated 09/10/2019. FINDINGS: Lumbar Spine (L1-L4): g/cm2 (0.961) / T-score (-1.3) / Z-score (0.8) Findings are suggestive of osteopenia with a low fracture risk. Right Forearm: g/cm2 (0.682) / T-score (-0.2) / Z-score (1.7) The T-Scores on the most recent prior examination were: Lumbar Spine (L1-L4): There has been worsening of bone density since the previous examination. BD/Dexa Bone Density Study IMPRESSION: The patient is considered osteopenic as outlined below according to World Dereck Organization (WHO) criteria with a low fracture risk. There has been worsening of bone density since the previous examination. Reference Information: The T-score is the number of standard deviations above or below the standard which is normal for young adults at their peak bone mineral density. The World Health Organization (WHO) interprets the T-scores as follows: Above -1 Normal bone density Between -1 and -2.5 Osteopenia Equal to / or below -2.5 Osteoporosis As a practical clinical guideline, osteopenia may be graded as follows: Mild -1 through -1.5 Moderate -1.6 through -2.0 Severe -2.1 through -2.4 The Z-score is the number of standard deviations above or below age-matched controls. A Z-score of less than -1.5 would be considered abnormal. References: 1. NIH Osteoporosis and Related Bone Diseases www osteo.org 2. International Society for Clinical Densitometry www iscd.org 3. National Osteoporosis Foundation www nof.org Electronically Signed: Bo Villalpando MD at 15:09 EST , Service support ,
== END ==
PROVIDERS: PCP Internal Medicine; Referring Provider Internal Medicine Hematology & Oncology; Visit Provider Internal Medicine Hematology & Oncology
DX: M81.8 Other osteoporosis without current pathological fracture (principal)
CPT/HCPCS: 77080

== ENCOUNTER → 2021-09-12 13:57 | Outpatient (CLI) | payer MEDICARE, OTHER, SELFPAY ==
[2019-07-09 08:26] VITALS: BMI 24.0
[2021-09-12 14:04] VITALS: BP 117/66; PULSE 72; RESP 16; TEMP 36.4; O2SAT 98; BMI 26.1
[2021-09-12] MEDS: Benralizumab 30 MG/ML Syringe SC (14:11)
== END ==
PROVIDERS: PCP Internal Medicine; Referring Provider Nurse Practitioner Acute Care; Visit Provider Nurse Practitioner Acute Care
DX: J45.51 Severe persistent asthma with (acute) exacerbation (principal); M81.8 Other osteoporosis without current pathological fracture
CPT/HCPCS: 77080; 96372; J0517

== ENCOUNTER 2021-11-06 15:27 | Outpatient (CLI) | payer MEDICARE, OTHER, SELFPAY ==
[2019-07-09 08:26] VITALS: BMI 24.0
[2021-11-06 15:32] VITALS: BP 108/73; PULSE 81; RESP 16; TEMP 36.6; O2SAT 95
[2021-11-06] MEDS: Benralizumab 30 MG/ML Syringe SC (15:39)
[2021-11-06 16:14] VITALS: BP 114/76
== END 2021-11-06 23:59 | disposition home or self-care (01) ==
LOC: MEDOUTP 15:27
PROVIDERS: PCP Internal Medicine; Referring Provider Nurse Practitioner Acute Care; Visit Provider Nurse Practitioner Acute Care
DX: J45.50 Severe persistent asthma, uncomplicated (principal)
CPT/HCPCS: 96372; J0517

== ENCOUNTER 2021-11-22 18:00 | Outpatient (RCR) | payer MEDICARE, OTHER, SELFPAY ==
[2019-07-09 08:26] VITALS: BMI 24.0
--- NOTE | 2021-10-26 07:22 | HP.PTEVAL ---
Patient's Visit Information HEIKE ARROYO is a 66 year old F referred to Physical Therapy by Dr. Genesis Baldwin DO with a diagnosis of R knee pain. Date of Evaluation: 10/18/21 Physical Therapist: Slava Olivera DPT - Visit Plan Frequency: 2x /Week Duration: 4 Weeks Plan: Start with gentle mobility of her R knee, progressing as tolerated. HEP for TKE and flexion. Add in isometrics today, progress to OKC stability exercises including glute/hip strengthening. Once tolerating add in CKC exercises. May us US for initial pain control. - Subjective Pt. is here today for her initial evaluation with diagnosis of R knee pain. Pt. reports no mech of injury, but has been having increased pain over the past few months to a point now it bother her with walking and standing. Pt. has had x rays showing increased OA in her medial compartment of her knee as well. Increased pain: standing, walking, stairs, twisting and any lifting. Decreased pain: OTC meds, ice and rest. She has not tried any exercises, but has been trying to rest to see if this helps. Pt. denies N/T in either LE. She does a lot of standing and walking and reports being over having this pain. She is sleeping okay, but mornings are painful as well. She is hopeful to reduce symptoms in order to get back to all recreational and ADls without issues. - Pain R knee Pain Intensity (Out of 10): 5 Pain Intensity Range: 2, 9 - Objective POSTURE: Pt. has increased wt. shift to L side. Pt. has normal KALEB, no major valgus/varus positioning. PALPATION: Pt. has has tenderness surrounding knee, but has the worst pain at medial joint line throughout. NEURO: Pt. has normal sensation and normal DTR of BLEs. Pt. is able to rise on heels and toes without issues, but does need balance aid. ROM: L knee: 0-0-128deg. R knee 0-6-98deg. Pt. reprots increased pain at end ranges limiting further motion. Pain reported at medial joint line. MMT: LLE: 5/5 throughout. RLE: ankle 5/5 throughout; knee: ext 4/5 increase NW, flexion 4/5 increase NW; hip: flexiuon 4+/5, abd 4/5, ext 4+/5. Core strenght: fair. GAIT: Pt. ambulates without AD, but does have lack of TKE during stance, antalgic pattern with limited knee flexion during swing phase. STAIRS: Pt. loads LLE only. She report increased knee pain during R loading phase when attempted. - Special Tests R Knee Humaira - Meniscus: Positive R Knee Apley - Meniscus: Positive R Knee Anterior Drawer - ACL: Negative R Knee Posterior Drawer - PCL: Negative R Knee Valgus - MCL: Negative R Knee Varus - LCL: Negative - Balance/Special Test Scores Lower Extremity Functional Score: 33 - Goals Goal 1:: LTG: Pt. to be I with HEP for LE ROM and strength. Goal Time Frame: 2-4 Weeks Goal 2:: STG: Pt. to have increased R knee ROM to 0-0-120deg without increase in symptoms. Goal Time Frame: 2 Weeks Goal 3:: LTG: Pt. to have increased R LE strength to at least 5-/5 throughout to reduce stress applied to R knee with all functional mobility. Goal Time Frame: 2-4 Weeks Goal 4:: STG: Pt. to ambulate 300+ feet with normal gait pattern with 0-2/10 pain in R knee. Goal Time Frame: 2 Weeks Goal 5:: LTG: Pt. to negotiate steps with 1 HR with reciprocal pattern without increase in symptoms. Goal Time Frame: 2-4 Weeks - Rehabilitation Potential Physical Therapy Diagnosis: Pt. has signs and symptoms consistent with R knee pain. Pt. has marked hypomobility and end ranges of flexion and extension secondary to increased pain. She has signs consistent with meniscal injury, but due to similarities with medial knee OA, hard to assimilate between the two. She does need to have increased knee ROM and strength around the joint to allow for increased stability with functional activities. Pt. would benefit from PT to address the above limitations. Rehabilitation Potential: Good - Anticipated Interventions Patient/Client Instruction: Educate patient on: Condition, Plan of Care, Risk Factors, Benefits of Fitness Program For the Purpose of:: To improve decision making, To facilitate caregiver knowledge, To improve self management, To prevent re-injury, To improve ability to perform tasks related to life management Therapeutic Exercise to Include: Strength training, Power training, Body mechanics, Postural training, Flexibilty training, Gait and locomotor training, Passive ROM, Active ROM, Dynamic Lumbar Stabilization For the Purpose of:: To decrease pain, To decrease swelling/inflammation, To increase ROM, To improve nutrient delivery to tissue, To increase oxygenation perfusion, To improve muscle performance and motor function, To improve ability to perform ADL's, To increase tolerance to activity/condition/position, To improve performance and independence with ADL's Manual Therapy Techniques to Include: Mobilization, Passive ROM, Soft tissue mobilization For the Purpose of:: To decrease pain, To decrease swelling/inflammation, To increase ROM Cryotherapy (ice pack, ice massage): Yes Thermo therapy (hot pack): Yes Ultrasound (thermal/non thermal): Yes For the Purpose of:: To increase ROM Thank you for the opportunity to evaluate your patient. For Medicare and Medicare HMO plans, please review the plan of care and approve it. It will need to be FAXED BACK to us at [phone] for Medicare purposes. For Medicare only, by signing this I certify the plan of care. Please let me know if there are questions or concerns regarding this plan of care. Physician Signature: Date:
--- NOTE | 2021-12-15 10:32 | HP.PTDCSUM_ITS ---
It has been my pleasure to treat HEIKE ARROYO referred by Dr. Genesis Baldwin DO, with the diagnosis of R knee pain for a total of 8 visit(s). Discharge Date: 11/22/21 Please see the following information for a summary of their discharge status. Subjective: Pt. reports having times when she is feeling better, then others when her pain is back. Pt. reports being HEP compliant without issues. She is concerned about the increased pain at times. R knee Pain Intensity (Out of 10): 1 % Improvement: 40 Objective/Function: ROM: Pt. still has pain at end range extension, loss of 5deg. flexion 120eg mild increase in symptoms. Normal hip ROM. MMT: Pt. has 5- /5 strength throughout, except ext 4+/5. She still has pain with rotation of her knee and pivoting on her knee is very pain. She walk with slight antalgic pattern during R stance phase. descending steps is pain, ascending is less painful. Goal 1:: LTG: Pt. to be I with HEP for LE ROM and strength. Goal Progress: Progressing Goal 2:: STG: Pt. to have increased R knee ROM to 0-0-120deg without increase in symptoms. Goal Progress: Progressing Goal 3:: LTG: Pt. to have increased R LE strength to at least 5-/5 throughout to reduce stress applied to R knee with all functional mobility. Goal Progress: Progressing Goal 4:: STG: Pt. to ambulate 300+ feet with normal gait pattern with 0-2/10 pain in R knee. Goal Progress: Progressing Goal 5:: LTG: Pt. to negotiate steps with 1 HR with reciprocal pattern without increase in symptoms. Goal Progress: Progressing Plan: pt. to be DC from PT to physician possible need for further testing to rule out meniscal injury. Discharge Comments: Pt. was treated for her knee pain. She appears ot have meniscal involvement vs OA. Pt. was treated with ROM progressing to strengthening. She toelrated well. She does still have pain at end ranges and antalgic pattern. She is I with her HEP for ROM and strengthening. I am DCing back to physician with possible need for further examination if not furthering her improvement I. If there are questions or concerns regarding this patient's physical therapy, please feel free to call me at [phone]. Thank you for the referral of this patient. Sincerely, Slava Olivera, DPT Balance/Gait/Functional tests - Balance/Special Test Scores Lower Extremity Functional Score: 43
== END 2021-11-22 19:00 | disposition home or self-care (01) ==
LOC: PT 18:00
PROVIDERS: PCP Internal Medicine; Referring Provider Internal Medicine; Visit Provider Internal Medicine
DX: M25.561 Pain in right knee (principal)
CPT/HCPCS: 97110; 97161; 97164

== ENCOUNTER → 2022-01-05 | Outpatient (CLI) | payer MEDICARE, OTHER, SELFPAY ==
[2019-07-09 08:26] VITALS: BMI 24.0
[2022-01-05 14:05] VITALS: BP 123/69; PULSE 73; RESP 16; TEMP 36.3; O2SAT 99
[2022-01-05] MEDS: Benralizumab 30 MG/ML Syringe SC (14:07)
== END | disposition home or self-care (01) ==
LOC: MEDOUTP 14:01
PROVIDERS: PCP Internal Medicine; Referring Provider Nurse Practitioner Acute Care; Visit Provider Nurse Practitioner Acute Care
DX: J45.50 Severe persistent asthma, uncomplicated (principal)
CPT/HCPCS: 96372; J0517

== ENCOUNTER → 2022-02-16 | Outpatient (CLI) | payer MEDICARE, OTHER, SELFPAY ==
[2019-07-09 08:26] VITALS: BMI 24.0
--- NOTE | 2022-02-16 09:12 | NM_ITS ---
CLINICAL: Female, 66 years old. Left scapula pain; left femur pain, pain entire left side of body. -- Patient also states recall on her Left hip prosthesis. WHOLE BODY NUCLEAR BONE SCAN TECHNIQUE: Following the IV administration of 25.4 mCi of Tc MDP, whole body bone imaging was performed with a gamma camera following a three hour delay. COMPARISON STUDIES : NM - None. CR - Not available for review at this time. CT - Not available for review at this time. MR - Not available for review at this time. US - Not available for review at this time. FINDINGS: Increased radiopharmaceutical uptake is seen in the region of the left acromioclavicular joint suggestive of degenerative changes. NM/Bone Scan Whole Body IMPRESSION: Mild increased uptake at the level of the left acromioclavicular joint in keeping with osteoarthritis. Electronically Signed: Bo Villalpando MD at 13:15 EDT ,
== END | disposition home or self-care (01) ==
LOC: NM 09:11
PROVIDERS: PCP Internal Medicine; Referring Provider Nurse Practitioner Family; Visit Provider Nurse Practitioner Family
DX: M89.8X1 Other specified disorders of bone, shoulder (principal); M89.8X5 Other specified disorders of bone, thigh; Z85.3 Personal history of malignant neoplasm of breast
CPT/HCPCS: 78306; A9503

== ENCOUNTER → 2022-03-02 | Outpatient (CLI) | payer MEDICARE, OTHER, SELFPAY ==
[2019-07-09 08:26] VITALS: BMI 24.0
[2022-03-02 14:20] VITALS: BP 112/79; PULSE 88; RESP 16; TEMP 36.5; O2SAT 94
[2022-03-02] MEDS: Benralizumab 30 MG/ML Syringe SC (14:21)
== END | disposition home or self-care (01) ==
LOC: MEDOUTP 14:14
PROVIDERS: PCP Internal Medicine; Referring Provider Nurse Practitioner Acute Care; Visit Provider Nurse Practitioner Acute Care
DX: J45.50 Severe persistent asthma, uncomplicated (principal)
CPT/HCPCS: 96372; J0517

== ENCOUNTER → 2022-03-29 | Outpatient (CLI) | payer MEDICARE, OTHER, SELFPAY ==
[2019-07-09 08:26] VITALS: BMI 24.0
--- NOTE | 2022-03-30 09:46 | PFT ---
INTRODUCTION: The patient is a 67-year-old female that presents for pulmonary function studies secondary to a diagnosis of asthma. Respiratory therapy reported good patient effort. Bronchodilators were used during testing. INTERPRETATION: Forced expiration spirometry demonstrates no evidence of a large airways obstructive ventilatory defect. There was no significant response to aerosolized bronchodilators. Spirograms are of good quality and plateau normally. Body plus tomography was performed and reveals lung volumes to be within normal limits. Diffusing capacity by single breath CO was within normal limits. IMPRESSION: Grossly normal pulmonary function studies.
== END | disposition home or self-care (01) ==
LOC: PSN 12:33
PROVIDERS: PCP Internal Medicine; Referring Provider Nurse Practitioner Acute Care; Visit Provider Nurse Practitioner Acute Care
DX: J45.50 Severe persistent asthma, uncomplicated (principal)
CPT/HCPCS: 94060; 94726; 94729

== ENCOUNTER → 2022-04-27 | Outpatient (CLI) | payer MEDICARE, OTHER, SELFPAY ==
[2019-07-09 08:26] VITALS: BMI 24.0
[2022-04-27 14:17] VITALS: BP 105/70; PULSE 82; RESP 16; TEMP 36.3; O2SAT 97; BMI 26.6
[2022-04-27] MEDS: Benralizumab 30 MG/ML Syringe SC (14:20)
== END | disposition home or self-care (01) ==
LOC: MEDOUTP 14:04
PROVIDERS: PCP Internal Medicine; Referring Provider Nurse Practitioner Acute Care; Visit Provider Nurse Practitioner Acute Care
DX: J45.50 Severe persistent asthma, uncomplicated (principal)
CPT/HCPCS: 96372; J0517

== ENCOUNTER 2022-05-14 08:30 | Outpatient (RCR) | payer MEDICARE, OTHER, SELFPAY ==
[2019-07-09 08:26] VITALS: BMI 24.0
--- NOTE | 2022-04-30 08:37 | HP.PTEVAL ---
Patient's Visit Information HEIKE ARROYO is a 67 year old F referred to Physical Therapy by AMMON Mcgill with a diagnosis of vertigo. Date of Evaluation: 04/30/22 Physical Therapist: Reddy Parson, DPT, OCS, CSCS - Visit Plan Frequency: 1-2x /Week Duration: 2-4 Weeks Plan: weekly x 2-4 as needed. for. positional and balance checks. - Subjective Head feels lightheaded for long time. Went to doctor 2-3 weeks ago and she feels she has crystals in ears out of place. Given meclizine which helped a little bit. So sent for therapy. Also has a stiff neck for days a week ago on L neck and shoulder and could not turn L. That is better. This started 2-3 weeks ago with lightheadedness while bending. It lasts much of day but when she moves quickly or bends it gets more intense and may spin a little for short period of time. Gets it at first lying but then it feels better. Turning can wake her up. L side seems worse. Not employed. Sleeps fine. Basic ADLS are getting done. I do it all. Putting new floors in house is what she is doing and this does not hold her back but she has to be careful. No falls but balance feels worse. Has not steps at home. - Objective Walks well on firm surface with light. Wobbly on some FGA items. Trasnfer I, steps with rail I. Neck AROM stiff with L rotation but functional otherwise. No pain at rest. UE AROM WFL. - R hallpike darrell. + L hallpike darrell for dizzyness and eye discomfort 15 seconds. Better after bharti - Balance/Special Test Scores Functional Gait Assessment Score: 24 % Disability: 20.0000 Dizziness Score: 42 - Goals Goal 1:: abolish vertigo Goal Time Frame: 2-4 Weeks Goal 2:: FGA /30 Goal Time Frame: 2-4 Weeks Goal 3:: Pt feel 100% back to normal activity Goal Time Frame: 2-4 Weeks Goal 4:: DHI 10 or less Goal Time Frame: 2-4 Weeks - Rehabilitation Potential Physical Therapy Diagnosis: Likely BPPV Rehabilitation Potential: Fair - Anticipated Interventions Patient/Client Instruction: Educate patient on: Condition, Plan of Care For the Purpose of:: To increase tolerance to activity/condition/position Therapeutic Exercise to Include: Balance training Comment: psoitional For the Purpose of:: To increase tolerance to activity/condition/position, To improve ability of physical actions for home/community/work/leisure Thank you for the opportunity to evaluate your patient. For Medicare and Medicare HMO plans, please review the plan of care and approve it. It will need to be FAXED BACK to us at [phone] for Medicare purposes. For Medicare only, by signing this I certify the plan of care. Please let me know if there are questions or concerns regarding this plan of care. Physician Signature: Date:
--- NOTE | 2022-06-25 12:13 | HP.PT.NRP ---
HEIKE ARROYO was seen in my office for initial evaluation on 04/30/22. The following Plan of Care was established for this patient: Initial Frequency: 1-2x /Week Initial Duration: 2-4 Weeks Patient/Client Instruction: Educate patient on: Condition, Plan of Care For the Purpose of:: To increase tolerance to activity/condition/position Therapeutic Exercise to Include: Balance training For the Purpose of:: To increase tolerance to activity/condition/position, To improve ability of physical actions for home/community/work/leisure This patient was last seen in our office 05/14/22. Pertinent comments regarding their Physical therapy will appear below: Pt seen for 3 visits of POC and was 90% better. She did not attend her final scheduled visit. at this point, it has been over 4 weeks and I will discontinue due to nonattendance. At this point I will be discontinuing this patient from physical therapy. I would be happy to see this patient again in the future if found appropriate by the physician. Thank you! Reddy Parson, DPT, OCS, CSCS Balance/Gait/Functional tests - Balance/Special Test Scores Functional Gait Assessment Score: 28 % Disability: 6.6700 Dizziness Score: 42
== END 2022-05-14 19:00 | disposition home or self-care (01) ==
LOC: PT 08:30
PROVIDERS: PCP Internal Medicine; Referring Provider Nurse Practitioner Family; Visit Provider Nurse Practitioner Family
DX: R42 Dizziness and giddiness (principal)
CPT/HCPCS: 97161; 97530

== ENCOUNTER → 2022-06-22 | Outpatient (CLI) | payer MEDICARE, OTHER, SELFPAY ==
[2019-07-09 08:26] VITALS: BMI 24.0
[2022-06-22] MEDS: Benralizumab 30 MG/ML Syringe SC (13:45)
[2022-06-22 13:50] VITALS: BP 135/82; PULSE 85; TEMP 36.6; O2SAT 96
== END | disposition home or self-care (01) ==
LOC: MEDOUTP 13:35
PROVIDERS: PCP Internal Medicine; Referring Provider Nurse Practitioner Acute Care; Visit Provider Nurse Practitioner Acute Care
DX: J45.50 Severe persistent asthma, uncomplicated (principal)
CPT/HCPCS: 96372; J0517

== ENCOUNTER → 2022-07-06 | Outpatient (CLI) | payer MEDICARE, OTHER, SELFPAY ==
[2019-07-09 08:26] VITALS: BMI 24.0
--- NOTE | 2022-07-06 07:10 | BI_ITS ---
MAMMOGRAPHY - BILATERAL SCREENING 3-D TOMOSYNTHESIS REASON FOR EXAM: Female, 67 years old. Routine screening PERTINENT HISTORY: Personal history of breast cancer with previous left lumpectomy.. TECHNIQUE: 2-D mammograms and 3-D Tomosynthesis of the breast (s) were performed. CAD was performed. COMPARISON: 07/03/2021 FINDINGS: The breast composition is heterogeneously dense that can obscure small breast masses. Scattered benign calcifications are seen. No dense spiculated masses or suspicious microcalcifications are identified. Ala and the breast from previous surgery. No skin thickening or retraction. There has been no significant change since the prior study. BI/SCRN MAMM (CAD)W/JANIE BILAT IMPRESSION: No mammographic signs of malignancy. Routine yearly mammograms recommended. ASSESSMENT CATEGORY: BIRADS Category 2: Benign. A letter regarding these results will be sent to the patient by the facility within 30 days. FOLLOW UP RECOMMENDATION: Yearly follow up mammogram recommended. (A) Approximately 10% of breast cancers are not detected by mammography. A normal mammogram should not delay biopsy of a clinically suspicious abnormality. Electronically Signed: Randal Degroot MD at 8:11 EDT ,
== END | disposition home or self-care (01) ==
LOC: OPBI 07:10
PROVIDERS: PCP Internal Medicine; Referring Provider Nurse Practitioner Family; Visit Provider Nurse Practitioner Family
DX: Z12.31 Encounter for screening mammogram for malignant neoplasm of breast (principal)
CPT/HCPCS: 77063; 77067

== ENCOUNTER → 2022-08-17 | Outpatient (CLI) | payer MEDICARE, OTHER, SELFPAY ==
[2019-07-09 08:26] VITALS: BMI 24.0
[2022-08-17 13:36] VITALS: BP 118/75; PULSE 74; RESP 16; TEMP 36.2; O2SAT 98; BMI 25.7
[2022-08-17] MEDS: Benralizumab 30 MG/ML Syringe SC (13:41)
== END | disposition home or self-care (01) ==
LOC: MEDOUTP 13:30
PROVIDERS: PCP Internal Medicine; Referring Provider Nurse Practitioner Acute Care; Visit Provider Nurse Practitioner Acute Care
DX: J45.50 Severe persistent asthma, uncomplicated (principal)
CPT/HCPCS: 96372; J0517

== ENCOUNTER → 2022-08-20 | Outpatient (CLI) | payer MEDICARE, OTHER, SELFPAY ==
[2019-07-09 08:26] VITALS: BMI 24.0
--- NOTE | 2022-08-20 12:43 | MRI_ITS ---
STUDY: MRI LEFT MIDFOOT REASON FOR EXAM: Female, 67 years old. Evaluate for intermetatarsal neuroma or metatarsal stress fracture. Pain. TECHNIQUE: Standardized fat and water weighted pulse sequences were obtained in all 3 orthogonal planes. COMPARISON: X-rays of the foot dated March 07, 2021. FINDINGS: Normal first tarsometatarsal articulation. Normal Lisfranc ligament. Normal second and third tarsometatarsal articulations. Normal cuboid fourth and cuboid fifth tarsometatarsal articulation. Normal first through fifth metatarsi. Moderate arthrosis of the MTP and IP joints with small joint effusions. Hammertoe deformities (sagittal series 7 images 1-26) . Normal intrinsic muscles of the mid and forefoot region. Normal extensor digitorum brevis muscle. Normal subcutis adipose space. MRI/Lower Ext/No Jt/w/o IMPRESSION: Moderate arthrosis of the MTP and IP joints with small MTP joint effusions. Hammertoe deformities. No bone marrow edema to suggest stress injury. No neuroma identified. Electronically Signed: Norman Fields, at 15:08 EST ,
== END | disposition home or self-care (01) ==
LOC: MRI 12:17
PROVIDERS: PCP Internal Medicine; Referring Provider Podiatrist; Visit Provider Podiatrist
DX: G57.62 Lesion of plantar nerve, left lower limb (principal); S92.302A Fracture of unspecified metatarsal bone(s), left foot, initial encounter for closed fracture
CPT/HCPCS: 73718

== ENCOUNTER → 2022-09-27 | Outpatient (CLI) | payer MEDICARE, OTHER, SELFPAY ==
[2019-07-09 08:26] VITALS: BMI 24.0
--- NOTE | 2022-09-27 16:39 | MRI_ITS ---
STUDY: MRI BRAIN WITHOUT CONTRAST REASON FOR EXAM: Female, 67 years old. POOR BALANCE, DIZZINESS TECHNIQUE: Standardized multiplanar fat and water weighted pulse sequences were obtained. COMPARISON: No relevant prior imaging available for comparison. BRAIN AND EXTRA-AXIAL SPACES: No intracranial mass, mass effect, or midline shift. No hemorrhage, territorial infarct or acute ischemia. Basal cisterns are unremarkable. SELLA: Pituitary gland is normal in height. AUDITORY SYSTEM: Unremarkable. BONES/JOINTS: Unremarkable. SINUSES: Unremarkable as visualized. Clear. MASTOID AIR CELLS: Unremarkable as visualized. Clear. ORBITS: Unremarkable as visualized. VASCULATURE: Normal flow voids in the major intracranial circulation. MRI/Brain without Contrast IMPRESSION: 1. No acute findings. Electronically Signed: Lizbeth Cadena MD at 22:24 EST Reading Location ID and State: [id number] / Tel , Service support ,
== END | disposition home or self-care (01) ==
PROVIDERS: PCP Internal Medicine; Referring Provider Internal Medicine; Visit Provider Internal Medicine
DX: R26.89 Other abnormalities of gait and mobility (principal)
CPT/HCPCS: 70551

== ENCOUNTER → 2022-10-12 | Outpatient (CLI) | payer MEDICARE, OTHER, SELFPAY ==
[2019-07-09 08:26] VITALS: BMI 24.0
[2022-10-12 08:05] VITALS: BP 96/68; PULSE 67; RESP 16; TEMP 35.9; O2SAT 98; BMI 25.7
[2022-10-12] MEDS: Benralizumab 30 MG/ML Syringe SC (08:07)
== END | disposition home or self-care (01) ==
LOC: MEDOUTP 07:58
PROVIDERS: PCP Internal Medicine; Referring Provider Nurse Practitioner Acute Care; Visit Provider Nurse Practitioner Acute Care
DX: J45.50 Severe persistent asthma, uncomplicated (principal)
CPT/HCPCS: 96372; J0517

== ENCOUNTER 2022-11-08 12:00 | Outpatient (RCR) | payer MEDICARE, OTHER, SELFPAY ==
[2019-07-09 08:26] VITALS: BMI 24.0
--- NOTE | 2022-08-06 10:30 | HP.PTEVAL ---
Patient's Visit Information HEIKE ARROYO is a 67 year old F referred to Physical Therapy by Dr. Pete Rodas DPM with a diagnosis of L ankle instability. Date of Evaluation: 08/06/22 Physical Therapist: Slava Olivera DPT - Visit Plan Frequency: 2x /Week Duration: 6 Weeks Plan: Start with L ankle and LLE strengthening. Add in improved gait pattern after MRI to rule out forefoot pathology. Once tolerating add in proprioception exercises on L side. Pt. wants to trial exercises on own until MRI Aug 17. Given HEP this date; 4 way ankle GTB 2x10/ea. movement. SLR LLE 3x10. seated calf stretch with towel 3x30 - Subjective Pt. is here today for her initial evaluation with diagnosis of ankle instability. Pt. reports having a fibular fracture ~5 years ago and has been having ankle instability since. Last year she had metatarsal fracture , which she wear a boot for 3-4 months and as doing a bone stimulator during that time as well. She has not done PT on her ankle yet. Pt. reports having increased pain with forefoot rocker moment. She reports frequently rolling her ankle with stepping on uneven surfaces. She has also had B hip replacement and L foot fasciotomy. Patient reports increased pain with walking in her forefoot and walks differently to avoid pain. Pt. is hopeful to reduce symptoms to allow for increased mobility and decreased pain with walking. She is scheduled to have MRI on Aug 17. then follow up with physician. - Pain L ankle Pain Intensity (Out of 10): 0 Pain Intensity Range: 0, 2 L forefoot Pain Intensity (Out of 10): 2 Pain Intensity Range: 0, 4 - Objective POSTURE: Pt. has descent posture in stance. Slight wt. shift to R side in stance. PALPATION: pt. has pain with palpation throughout metatarsals, patient is very apprehensive with palpation. Pt. has no pain with palpation with fibula, no pain with ATFL or CFL. NEURO: Normal throughout. ROM: R ankle full without increase in symptoms. L ankle: DF 8deg, OK 321deg, INV 30deg, EVR 6deg. Pt. has pain with end range DF and with end range EVR. No pain with R ankle testing. MMT: R ankle 5/5 throughout. knee: ext 5/5 throughout; hip: flexion 4/5, ext 4/5, abd 4/5. LLE: ankle: 4/5 throughout, mild increase in symptoms with EVR and PF. knee: 5/5 throughout; hip: flexion 4/5, abd 4/5, ext 4/5. GAIT: Pt. ambulates with minimal to no L forefoot rocker moment. She reports fatigue as limiting factor with gait. She mcintyre increased L knee hyper extension during end of stance phase to compensate. STAIRS: loading RLE only. Pain if loading RLE. SPECIAL TESTING: No pain with anterior drawer or talar tilt, but did have increased motion from L to R. - Balance/Special Test Scores Lower Extremity Functional Score: 47 - Goals Goal 1:: LTG: Pt. to be I with L ankle and LLE strenghtening. Goal Time Frame: 4-6 Weeks Goal 2:: STG: Pt. to be able to ambulate with improved forefoot rocker moment. Goal Time Frame: 2-4 Weeks Goal 3:: LTG: Pt. to have increased L ankle strength to 5/5 throughout. Goal Time Frame: 4-6 Weeks Goal 4:: LTG: Pt. to ambulate on all surfaces without increase in L ankle instability. Goal Time Frame: 4-6 Weeks - Rehabilitation Potential Physical Therapy Diagnosis: Pt. has signs and symptoms consistent with L ankle instability. Pt. presents with marked rocker moment issue at L forefoot. Pt. also has marked weakness in her L ankle resulting in increased L ankle instability. Pt. would benefit from PT to increase ankle and LLE strengthening, progressing to proprioception exercises. Rehabilitation Potential: Good - Anticipated Interventions Patient/Client Instruction: Educate patient on: Condition, Plan of Care, Risk Factors, Benefits of Fitness Program For the Purpose of:: To facilitate caregiver knowledge, To improve self management, To prevent re-injury, To improve ability to perform tasks related to life management, To improve tolerance to ADL's Therapeutic Exercise to Include: Strength training, Power training, Balance training, Coordination, Postural training, Flexibilty training, Gait and locomotor training, Passive ROM, Active ROM For the Purpose of:: To decrease pain, To increase ROM, To improve nutrient delivery to tissue, To increase oxygenation perfusion, To improve muscle performance and motor function, To improve gait and locomotor functions, To improve health of tissue, To increase flexibility/ROM Thank you for the opportunity to evaluate your patient. For Medicare and Medicare HMO plans, please review the plan of care and approve it. It will need to be FAXED BACK to us at [phone] for Medicare purposes. For Medicare only, by signing this I certify the plan of care. Please let me know if there are questions or concerns regarding this plan of care. Physician Signature: Date:
--- NOTE | 2022-08-13 15:20 | HP.PTEVAL2 ---
Patient's Visit Information HEIKE ARROYO is a 67 year old F referred to Physical Therapy by Dr. Pete Rodas DPM with a diagnosis of CERVICAL RADICULOPATHY. Date of Evaluation: 08/13/22 Physical Therapist: Nicole Lopez, PT, Cert MDT - Visit Plan Frequency: 2-3x /Week Duration: 4-6 Weeks Plan: US, MH AND START WITH VERY GENTLE STM. START ALL EX'S SLOWLY AND MONITOR FOR DELAYED ONSET PAIN. POSTURE CORRECTION/STRENGTHENING, INSTRUCTION IN APPROPRIATE BODY MECHANICS AND ACTIVITY MODIFICATIONS. AJ UE ROM, STRETCHING AND STRENGTHENING. HEP INSTRUCTION. - Subjective Subjective: Work/Leisure: RETIRED. Present symptoms: LEFT NECK PAIN. L SHLD BLADE PAIN. NO L UE SX'S. INTERMITTENT L DOWN THE INSIDE OF L UE TO WRIST. Present since: MAY 2022 - THIS EPISODE. OFF AND ON FOR SEVERAL YEARS. Pain Scale: Worst - 6/10 Least - 0/10. Currently: 0/10. Commenced as a result of: WOKE UP WITH IT. Symptoms at onset: NECK PAIN. Worse: TURNING HEAD TO THE LEFT AND LOOKING UP AND DOWN. TURNING HEAD TO THE RIGHT SOME TOO. Better: M. RELAXER AND PREDNISONE (WHICH PATIENT IS CURRENTLY ON AND STARTED LAST WEEK). Disturbed sleep: YES. Previous history/Previous treatment: MEDICATION FOR NECK PAIN IN THE PAST. SOME H/O CHIROPRACTIC TOO WITH MOST RECENT BEING ABOUT 10 YEARS AGO. Dizziness: NONE X A COUPLE DAYS. STILL BEING ASSESSED BY DR. KELLEY. TRIED PT. MRI ORDERED AND PENDING 08/30/22. Tinnitis: INTERMITTENT - RARE. Nausea: NO. Shortness of Breath: NO. Difficulty Swollowing: NO. Gait: L FOOT PAIN - IT WORKS OK BUT IT HURTS. LOST BALANCE AND FELL WHEN GO LIGHT HEADED BEGINNING OF - NO INJURIES. DR. KELLEY IS AWARE. Accidents: NO. Unexplained weight loss: NO. Imaging: NONE RECENT OR PENDING. PMH/Recent major surgery: BREAST CANCER 2017 - LUMPECTOMY AND RADIATION. ASTHMA. SLEEP APNEA. AJ THR'S. R WRIST AND HAND SX. H/O L ANKLE FX. HIATIAL HERNIA REPAIR. OSTEOPOROSIS WHICH PATIENT RELATES TO STEROID USE FOR ASTHMA AND NECK PAIN ALONG WITH ESTROGEN AMIRA. L SHLD ARTHRITIS - GETS CORTISONE SHOTS IN IT ABOUT EVERY 6 MONTHS. LAST L SHLD CORTISONE INJECTION WAS ABOUT A WK AGO. FELL IN HOLE > 10 YEARS AGO AND HURT R SHLD (FROZEN SHLD FOLLOWED BY PT X 6 MONTHS). - Objective Objective: Sitting Posture/Standing Posture: POOR. FH. RSH'S. Active Correction of posture: NE. Other Observations: INDEP GAIT AND TRANSFERS. Sensory deficit: AJ UE LIGHT TOUCH SENSATION IS GROSSLY INTACT AND SYMMETRICAL INCLUDING RIGHT WRIST AND HAND. ROM deficit: 165 DEG ELEVATION R UE. 130 DEG ELEVATION L UE. LIMITED AJ SHLD ROTATION AND LIMITED R WRIST ROM COMPARED TO L. 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 RIGHT UE GROSSLY 4-/5, L 3-/5. Reflexes: AJ biceps 2/3, R WRIST ABSENT, L 2/3. Dural Signs: NEGATIVE AJ UE'S. Cervical Mvmt Loss: Flex: NIL. Pro: NIL. Ext: MOD TO PRAKASH. Ret: PRAKASH. RSB: MOD. LSB: MOD. R Rot: MOD. L Rot: PRAKASH. PATIENT C/O INCREASED NECK PAIN WITH NECK ROM TESTING ALL PLANES. Postural strength: POOR. Palpation: PATIENT IS TENDER WITH LIGHT PALPATION THROUGHOUT THE UPPER THORACIC, CERVICAL AND LEFT SCAPULAR REGIONS. INCREASED MUSCLE TONE AJ CERVICAL MUSCULATURE. TREATMENT: NEUROMUSCULAR REEDUCATION - RETRAINING OF MVMT AND POSTURE FOR SITTING, LYING AND STANDING ACTIVITIES. - Goals Goal 1:: DECREASE C/O NECK AND L UE SX'S. Goal Time Frame: 4-6 Weeks Goal 2:: IMPROVE LIFTING, READING, SLEEP, DRIVING AND RECREATIONAL FUNCTION. Goal Time Frame: 4-6 Weeks Goal 3:: INSTRUCT IN PROPHYLAXIS Goal Time Frame: 4-6 Weeks - Anticipated Interventions Patient/Client Instruction: Educate patient on: Condition, Plan of Care, Risk Factors For the Purpose of:: To improve self management Therapeutic Exercise to Include: Strength training, Body mechanics, Postural training, Flexibilty training, Neuromotor development, Scapular Strength/Stabilization For the Purpose of:: To decrease pain, To improve nutrient delivery to tissue, To improve muscle performance and motor function, To increase tolerance to activity/condition/position, To improve ability of physical actions for home/community/work/leisure Manual Therapy Techniques to Include: Soft tissue mobilization For the Purpose of:: To decrease pain, To improve nutrient delivery to tissue Cryotherapy (ice pack, ice massage): Yes Thermo therapy (hot pack): Yes Ultrasound (thermal/non thermal): Yes For the Purpose of:: To decrease pain, To improve nutrient delivery to tissue Thank you for the opportunity to evaluate your patient. For Medicare and Medicare HMO plans, please review the plan of care and approve it. It will need to be FAXED BACK to us at [phone] for Medicare purposes. For Medicare only, by signing this I certify the plan of care. Please let me know if there are questions or concerns regarding this plan of care. Physician Signature: Date:
--- NOTE | 2022-09-14 13:54 | HP.PTREVAL ---
Dr. Pete Rodas, DPM, It has been my pleasure to treat HEIKE ARROYO over the last 2 visits for L ankle instability. Please see the progress note below for an update on the physical therapy plan of care! Subjective: Pt. arrives today. He has her MRI, no stress fracture noted in her metatarsals. It did show arthritis in the same area of 2nd-4th tarsal/metatarsal joints. She is also c/o increased pain at her L anterior hip (previously replaced). This was checked out by ortho who cleared her as well. Objective/Function: Pt. has decent ROM of her L ankle, soreness at lateral ankle with INV. tarsal/metatarsal flexion limited secondary to pain, full extension noted. MMT: L ankle 4/5 throughout, mild pain with eversion. Toe flexion 4/5, toe ext 4/5. gait: Pt. ambulates with flat foot, minimal L foot rocker moment due pain. Pt. reports some L hip pain with hip flexion and with pre swing motions (most likely due to extension). Pt. has marked difficulty with gait secondary to pain in foot. She complains of instability in her ankle as well. Pt. would benefit from ankle strengthening, foot intrinsic strengthening and general LLE strengthening as tolerated. Plan Plan: Start with 4 way ankle, foot intrinsic strengthening, L hip strengthening. Work on gait performance hopefully progressing forefoot rocker moment. Balance/Gait/Functional tests - Balance/Special Test Scores Oswestry Neck Score: 9 Lower Extremity Functional Score: 47 Goals Goal 1:: LTG: Pt. to be I with L ankle and LLE strenghtening. Goal Time Frame: 4-6 Weeks Goal Progress: Progressing Goal 2:: STG: Pt. to be able to ambulate with improved forefoot rocker moment. Goal Time Frame: 2-4 Weeks Goal Progress: Progressing Goal 3:: LTG: Pt. to have increased L ankle strength to 5/5 throughout. Goal Time Frame: 4-6 Weeks Goal Progress: Progressing Goal 4:: LTG: Pt. to ambulate on all surfaces without increase in L ankle instability. Goal Time Frame: 4-6 Weeks Goal Progress: Progressing Anticipated Interventions Patient/Client Instruction: Educate patient on: Condition, Plan of Care, Risk Factors, Benefits of Fitness Program For the Purpose of:: To facilitate caregiver knowledge, To improve self management, To prevent re-injury, To improve ability to perform tasks related to life management, To improve tolerance to ADL's Therapeutic Exercise to Include: Strength training, Power training, Balance training, Coordination, Postural training, Flexibilty training, Gait and locomotor training, Passive ROM, Active ROM For the Purpose of:: To decrease pain, To increase ROM, To improve nutrient delivery to tissue, To increase oxygenation perfusion, To improve muscle performance and motor function, To improve gait and locomotor functions, To improve health of tissue, To increase flexibility/ROM Please do not hesitate to contact me at [phone] by phone or if you have questions or concerns regarding this new plan of care! Sincerely, Slava Olivera DPT
--- NOTE | 2022-10-11 11:01 | HP.PTDCSUM ---
It has been my pleasure to treat HEIKE ARROYO referred by Dr. Pete Rodas, DPM, with the diagnosis of L ankle instability for a total of 9 visit(s). Discharge Date: Please see the following information for a summary of their discharge status. Subjective: Anderson pretty good after last session. Feels like it's starting to improve a bit and its not as bad as it use to be. L ankle Pain Intensity (Out of 10): 0 L forefoot Pain Intensity (Out of 10): 0 L anterior hip Pain Intensity (Out of 10): Unrated Objective/Function: Continued to focus on proprioception challenges w/ good tolerance today. Pt reports fatigue post session, but no increase in pain. Goal 1:: LTG: Pt. to be I with L ankle and LLE strenghtening. Goal Progress: Progressing Goal 2:: STG: Pt. to be able to ambulate with improved forefoot rocker moment. Goal Progress: Progressing Goal 3:: LTG: Pt. to have increased L ankle strength to 5/5 throughout. Goal Progress: Progressing Goal 4:: LTG: Pt. to ambulate on all surfaces without increase in L ankle instability. Goal Progress: Progressing Plan: Start with 4 way ankle, foot intrinsic strengthening, L hip strengthening. Work on gait performance hopefully progressing forefoot rocker moment. If there are questions or concerns regarding this patient's physical therapy, please feel free to call me at [phone]. Thank you for the referral of this patient. Sincerely, Nicole Lopez, PT, Cert MDT Balance/Gait/Functional tests - Balance/Special Test Scores Oswestry Neck Score: 1 Lower Extremity Functional Score: 47
--- NOTE | 2022-10-11 11:20 | HP.PTREVAL ---
Dr. Pete Rodas, DPM, It has been my pleasure to treat HEIKE ARROYO over the last 10 visits for L ankle instability. Please see the progress note below for an update on the physical therapy plan of care! Subjective: Pt. reports I feel like I am heading in the right direction. She reports no pain in her L ankle today and her hip is doing well as well. Pt. reports being 35% better over all. Objective/Function: Pt. reports overall improving. ROM: full ROM of L ankle and hip without increase in symptoms. MMT: L ankle DF 12#, PF 39#, EVR 9.9#, INV 13.1#. L hip: flexion 6#, abd 8#, ext 22#/. RLE: ankle: DF 16#, PF 44#, EVR 18#, INV 15#. GAIT: pt. has much improved gait pattern. She reports some mild soreness, but not intense pain. Pt. has improved L forefoot rocker moment as well. STAIRS: Pt. has increase L hip pain with ascending and descending, Ascending worse with L hip flexion to next step. Overall she is improving. She needs to have increased L ankle and hip strength, most notably into flexion of her hip and with L ankle EVR. Plan Plan: Cont. with PT for L hip strengthening (working towards machines), ankle EVR strengthening progressing to proprioception/balance activities on L ankle. Balance/Gait/Functional tests - Balance/Special Test Scores Oswestry Neck Score: 1 Lower Extremity Functional Score: 33 Goals Goal 1:: LTG: Pt. to be I with L ankle and LLE strenghtening. Goal Time Frame: 4-6 Weeks Goal Progress: Progressing Goal 2:: STG: Pt. to be able to ambulate with improved forefoot rocker moment. Goal Time Frame: 2-4 Weeks Goal Progress: Progressing Goal 3:: LTG: Pt. to have increased L ankle strength to 5/5 throughout. Goal Time Frame: 4-6 Weeks Goal Progress: Progressing Goal 4:: LTG: Pt. to ambulate on all surfaces without increase in L ankle instability. Goal Time Frame: 4-6 Weeks Goal Progress: Progressing Anticipated Interventions Patient/Client Instruction: Educate patient on: Condition, Plan of Care, Risk Factors, Benefits of Fitness Program For the Purpose of:: To facilitate caregiver knowledge, To improve self management, To prevent re-injury, To improve ability to perform tasks related to life management, To improve tolerance to ADL's Therapeutic Exercise to Include: Strength training, Power training, Balance training, Coordination, Postural training, Flexibilty training, Gait and locomotor training, Passive ROM, Active ROM For the Purpose of:: To decrease pain, To increase ROM, To improve nutrient delivery to tissue, To increase oxygenation perfusion, To improve muscle performance and motor function, To improve gait and locomotor functions, To improve health of tissue, To increase flexibility/ROM Please do not hesitate to contact me at [phone] by phone or if you have questions or concerns regarding this new plan of care! Sincerely, Slava Olivera DPT
--- NOTE | 2022-11-08 12:34 | HP.PTDCSUM_ITS ---
It has been my pleasure to treat HEIKE ARROYO referred by Dr. Pete Rodas, MIKE, with the diagnosis of L ankle instability for a total of 15 visit(s). Discharge Date: 11/08/22 Please see the following information for a summary of their discharge status. Subjective: Pt. is here today for her re assessment. Pt. reports that her L ankle is doing much better, but is still has some L hip pain with flexion. L ankle Pain Intensity (Out of 10): 0 L forefoot Pain Intensity (Out of 10): 0 L anterior hip Pain Intensity (Out of 10): 0 % Improvement: 100 Objective/Function: Pt. has symmetrical ROM between B ankles. No pain with ROM testing. MMT: R ankle: DF: 38.9#, PF 51.2#, INV 21.3#, EVR 22.8#. L ankle: DF 35.7#, PF 48.2#, INV 19.2#, EVR 24.1#. No pain with all testing. SLS balance: RLE 18sec on floor, 8 sec on foam. LLE: 17sec on floor, 9sec on foam. Pt. reports ambulating on uneven surfaces without issues. She reports no longer having issues with her ankle. GAIT: fairly normal gait pattern, normal ankle ROM without increase in symptoms. She does have some L hip pain with hip flexion causing some issues with her gait, but otherwise normal. STAIRS: Normal, mild increase in symptoms of L hip with hip flexion during ascending. Pt. does have an underling hip pain with flexion. The rest of her L hip mobility seems un effected. pt. reports having it checked out without marked issues on xrays. She does have some mild pain in her toes, but minimal. Goal 1:: LTG: Pt. to be I with L ankle and LLE strenghtening. Goal Progress: Goal Met Goal 2:: STG: Pt. to be able to ambulate with improved forefoot rocker moment. Goal Progress: Goal Met Goal 3:: LTG: Pt. to have increased L ankle strength to 5/5 throughout. Goal Progress: Goal Met Goal 4:: LTG: Pt. to ambulate on all surfaces without increase in L ankle ins tability. Goal Progress: Goal Met Plan: DC to HEP at this point in time. Discharge Comments: Pt. was treated with ankle strengthening, hip strengthening and proprioception exercises. Pt. is overall doing well, but is still having some L hip issues with flexion. Pt. is to trial strengthening on her own for her hip. If not improving I recommended she contact her physician. Pt. consents. If there are questions or concerns regarding this patient's physical therapy, please feel free to call me at [phone]. Thank you for the referral of this patient. Sincerely, Slava Olivera, DPT Balance/Gait/Functional tests - Balance/Special Test Scores Oswestry Neck Score: 1 Lower Extremity Functional Score: 64
== END 2022-11-08 14:05 | disposition home or self-care (01) ==
LOC: PT 12:00
PROVIDERS: PCP Internal Medicine; Referring Provider Internal Medicine; Visit Provider Podiatrist
DX: M54.12 Radiculopathy, cervical region (principal); M25.372 Other instability, left ankle
CPT/HCPCS: 97035; 97110; 97112; 97140; 97161; 97162; 97164

== ENCOUNTER → 2022-12-07 | Outpatient (CLI) | payer MEDICARE, OTHER, SELFPAY ==
[2019-07-09 08:26] VITALS: BMI 24.0
[2022-12-07 11:41] VITALS: BP 110/60; PULSE 68; RESP 16
[2022-12-07] MEDS: Benralizumab 30 MG/ML Syringe SC (11:42)
== END | disposition home or self-care (01) ==
LOC: MEDOUTP 10:56
PROVIDERS: PCP Internal Medicine; Referring Provider Nurse Practitioner Acute Care; Visit Provider Nurse Practitioner Acute Care
DX: J45.50 Severe persistent asthma, uncomplicated (principal)
CPT/HCPCS: 96372; J0517

== ENCOUNTER 2022-12-13 08:00 | Outpatient (RCR) | payer MEDICARE, OTHER, SELFPAY ==
[2019-07-09 08:26] VITALS: BMI 24.0
--- NOTE | 2022-11-20 09:50 | HP.PTEVAL_ITS ---
Patient's Visit Information HEIKE ARROYO is a 67 year old F referred to Physical Therapy by Dr. Genesis Baldwin DO with a diagnosis of Left Shoulder Pain. Date of Evaluation: 11/20/22 Physical Therapist: Charissa Whitaker DPT - Visit Plan Frequency: 2x /Week Duration: 4 Weeks Plan: Focus on scapular s/s. HEP Given IE: isometrics - Subjective Patient reports that she has had left shoulder pain for about 5 years but it keeps getting worse. Tripped and fell 10-15 years ago and caught herself. It rammed both shoulders and she went to PT for both- right shoulder got better but the left was still painful. It had a tiny tear in the RTC- then frozen shoulder- so it never really got better. She has injections- the last one was Saturday- they help a lot. So they want to pair with therapy to see if it could stretch the time out. The last one was in August. She has had an MRI and x- ray on her shoulder about 6 months ago and showed OA- no evidence of metastasis. Pain is located in the top of the shoulder and will feel pinchy if she moves the wrong way- will tingle down to the hand- but once she moves around it goes away. Agg: reaching, lifting or any part of movement. She is much better now due to the injection. Eases: injection, heat, Tylenol. Best: 0/10. Sleep: when it gets painful it wakes her up at night- side sleeper. No BUSTAMANTE, blurred vision or dizziness. She has had neck issues on the same side of the shoulder- has had PT which has really helped. 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 Right hand dominate. She is very active. PMHx: breast cancer, asthma, osteoporosis Meds: estrogen, anastra, provia - Objective Posture: FH, RS- can correct with verbal cues Palpation: tender to touch throughout- but no point tenderness ROM: Cervical: WNL, Elbow/Wrist/Hand: WFL, Shoulder: WFL with pain at end range flexion and abduction Strength: Scap: fair, Shoulder Isometric: 4+/5 without pain, Elbow: isometric: 4+/5, Cotton Weigher: equal - Balance/Special Test Scores Quick DASH Score: 50.0000 - Goals Goal 1:: Patient will be I with HEP and progression Goal Time Frame: 4-6 Weeks Goal 2:: Patient will maintain proper posture t/o tx session to demo increased scap s/s Goal 3:: Patient will report 80% improvement. Goal Time Frame: 4-6 Weeks - Rehabilitation Potential Physical Therapy Diagnosis: Patient presents with hypomobility- she has decreased UE and core strength/stabilization leading to impingement and increased pain with ADL's. Rehabilitation Potential: Good - Anticipated Interventions Patient/Client Instruction: Educate patient on: Benefits of Fitness Program Therapeutic Exercise to Include: Strength training, Endurance training, Body mechanics, Postural training, Passive ROM, Active ROM, Dynamic Lumbar Stabilization, Scapular Strength/Stabilization For the Purpose of:: To improve muscle performance and motor function TENS: Yes Cryotherapy (ice pack, ice massage): Yes Thermo therapy (hot pack): Yes Thank you for the opportunity to evaluate your patient. For Medicare and Medicare HMO plans, please review the plan of care and approve it. It will need to be FAXED BACK to us at [phone] for Medicare purposes. For Medicare only, by signing this I certify the plan of care. Please let me know if there are questions or concerns regarding this plan of care. Physician Signature: Date:
--- NOTE | 2022-12-13 08:47 | HP.PTDCSUM_ITS ---
It has been my pleasure to treat HEIKE ARROYO referred by Dr. Genesis Baldwin DO, with the diagnosis of Left Shoulder Pain for a total of 8 visit(s). Discharge Date: Please see the following information for a summary of their discharge status. Subjective: Patient reports its better but just not there yet- the pain is hard to tell since she had an injection- she has better ROM and strength. Worst: 2/10 depending on what she is doing. She 80-90% better- she feels that she can continue on her own. She has pulleys and bands and home - and she feels confident with the exercises L SH Pain Intensity (Out of 10): 1 % Improvement: 90 Objective/Function: Posture: FH, RS- can correct with verbal cues Palpation: tender to touch throughout- but no point tenderness ROM: Cervical: WNL, Elbow/Wrist/Hand: WFL, Shoulder: WFL without pain Strength: Scap: fair plus, Shoulder Isometric: 5/5 without pain, Elbow: isometric: 5/5, Traffic Enumerator: equal Goal 1:: Patient will be I with HEP and progression Goal Progress: Goal Met Goal 2:: Patient will maintain proper posture t/o tx session to demo increased scap s/s Goal Progress: Goal Met Goal 3:: Patient will report 80% improvement. Goal Progress: Goal Met Plan: 12/13/22: Discharge to I HEP- pt has bands and printed HEP- encouraged to call if questions. Focus on scapular s/s. HEP Given IE: isometrics If there are questions or concerns regarding this patient's physical therapy, please feel free to call me at [phone]. Thank you for the referral of this patient. Sincerely, Charissa Whitaker, DPT Balance/Gait/Functional tests - Balance/Special Test Scores Quick DASH Score: 18.1800
== END 2022-12-13 09:56 | disposition home or self-care (01) ==
LOC: PT 08:00
PROVIDERS: PCP Internal Medicine; Referring Provider Internal Medicine; Visit Provider Internal Medicine
DX: M76.12 Psoas tendinitis, left hip (principal); M70.62 Trochanteric bursitis, left hip; Z96.642 Presence of left artificial hip joint; M25.512 Pain in left shoulder
CPT/HCPCS: 97110; 97162; 97164

== ENCOUNTER 2023-01-10 11:00 | Outpatient (RCR) | payer MEDICARE, OTHER, SELFPAY ==
[2019-07-09 08:26] VITALS: BMI 24.0
--- NOTE | 2022-12-14 09:23 | HP.PTEVAL ---
Patient's Visit Information HEIKE ARROYO is a 67 year old F referred to Physical Therapy by Dr. Jese Celeste MD with a diagnosis of L hip pain. Date of Evaluation: 12/14/22 Physical Therapist: Garrison Fair, PT, ATC - Visit Plan Frequency: 2x /Week Duration: 4-6 Weeks Plan: L hip stretching, strengthening, core stab ex's, bike, and HEP - Subjective Pt reports she has had pain in her L hip for 3 years. Pt reports her pain was intermittent at that time, but notes she has had constant pain for the past 2 years. Pt reports she wore a boot on her L LE at that time secondary to a stress fracture, and notes that may have been what started her hip pain. Pt notes her pain is located on the lateral, anterior, and medial aspect of her L hip. Pt denies tingling or numbness in L LE at this time. Pt reports occasional sleep difficulty at this time. Pt notes she had a L MOMO (anterior approach) performed in 2017. Pt reports she has had recent x-rays which revealed her prosthetic is doing well. Pt reports she has stairs at home that she has to negotiate one step at a time. 0/10 pain at rest, 5/10 pain at worst - Pain L hip Pain Intensity (Out of 10): 0 Pain Intensity Range: 5 - Objective Neuro: B LE sensation is WNL to light touch. B patellar reflex= 2/3. Palpation: Pt is point tender on the L greater trochanter. Pt is also sore on the psoas distribution and along the IT band. No obvious deformities. ROM: L hip flexion is significantly limited at this time. All other ranges are WNL when compared bilaterally. MMT: R hip flex= 18, abd= 20, ext= 28 #F; L hip flex= 7, abd= 9, ext= 26 #F - Balance/Special Test Scores Lower Extremity Functional Score: 50 - Goals Goal 1:: Increase L hip flexibilty to WNL to aid with decreasing pain Goal Time Frame: 4-6 Weeks Goal 2:: Increase L hip strength x 1 grade to aid with stair negotiation Goal Time Frame: 4-6 Weeks Goal 3:: I with HEP Goal Time Frame: 4-6 Weeks - Rehabilitation Potential Physical Therapy Diagnosis: Pt has L hip pain, weakness, and limited ROM secondary to muscle tightness throughout L hip Rehabilitation Potential: Good - Anticipated Interventions Patient/Client Instruction: Educate patient on: Condition, Plan of Care For the Purpose of:: To improve self management Therapeutic Exercise to Include: Strength training, Endurance training, Balance training, Flexibilty training, Dynamic Lumbar Stabilization For the Purpose of:: To decrease pain, To increase ROM, To improve muscle performance and motor function Cryotherapy (ice pack, ice massage): Yes For the Purpose of:: To decrease pain Thank you for the opportunity to evaluate your patient. For Medicare and Medicare HMO plans, please review the plan of care and approve it. It will need to be FAXED BACK to us at [phone] for Medicare purposes. For Medicare only, by signing this I certify the plan of care. Please let me know if there are questions or concerns regarding this plan of care. Physician Signature: Date:
--- NOTE | 2023-01-10 11:32 | HP.PTREVAL ---
Dr. Jese Celeste MD, It has been my pleasure to treat HEIKE ARROYO over the last 9 visits for L hip pain. Please see the progress note below for an update on the physical therapy plan of care! Subjective: Pt reports she had a severe pain in her L hip while sleeping last night. Objective/Function: L hip pain ranges from 0/10 to 10/10 depending on what activity she is performing. L hip strength is grossly 3+/5. Pt is I with HEP Plan Plan: Cont or DC pending drTanner visit next week Balance/Gait/Functional tests - Balance/Special Test Scores Lower Extremity Functional Score: 40 Goals Goal 1:: Increase L hip flexibilty to WNL to aid with decreasing pain Goal Time Frame: 4-6 Weeks Goal Progress: Progressing Goal 2:: Increase L hip strength x 1 grade to aid with stair negotiation Goal Time Frame: 4-6 Weeks Goal Progress: Not Progressing Goal 3:: I with HEP Goal Time Frame: 4-6 Weeks Goal Progress: Goal Met Anticipated Interventions Patient/Client Instruction: Educate patient on: Condition, Plan of Care For the Purpose of:: To improve self management Therapeutic Exercise to Include: Strength training, Endurance training, Balance training, Flexibilty training, Dynamic Lumbar Stabilization For the Purpose of:: To decrease pain, To increase ROM, To improve muscle performance and motor function Cryotherapy (ice pack, ice massage): Yes For the Purpose of:: To decrease pain Please do not hesitate to contact me at [phone] by phone or if you have questions or concerns regarding this new plan of care! Sincerely, Garrison Fair, PT, ATC
--- NOTE | 2023-03-20 09:36 | HP.PT.NRP ---
Patient Information Patient Information: HEIKE ARROYO was seen in my office for initial evaluation on 12/14/22. The following Plan of Care was established for this patient: POC Established Initial Frequency: 2x /Week Initial Duration: 4-6 Weeks Anticipated Interventions Patient/Client Instruction: Educate patient on: Condition and Plan of Care For the Purpose of:: To improve self management Therapeutic Exercise to Include: Strength training, Endurance training, Balance training, Flexibilty training and Dynamic Lumbar Stabilization For the Purpose of:: To decrease pain, To increase ROM and To improve muscle performance and motor function Cryotherapy (ice pack, ice massage): Yes For the Purpose of:: To decrease pain Last Seen Last Seen: This patient was last seen in our office . Pertinent comments regarding their Physical therapy will appear below: Pt was treated for 9 PT visits for L hip pain through the date of 01/10/23. Pt has not returned through todays date and is discontinued at this time. At this point I will be discontinuing this patient from physical therapy. I would be happy to see this patient again in the future if found appropriate by the physician. Thank you! Garrison Fair, PT, ATC Balance/Gait/Functional tests Balance/Special Test Scores Lower Extremity Functional Score: 40
== END 2023-01-10 19:00 | disposition home or self-care (01) ==
LOC: PT 11:00
PROVIDERS: PCP Internal Medicine; Referring Provider Orthopaedic Surgery; Visit Provider Orthopaedic Surgery
DX: M76.12 Psoas tendinitis, left hip (principal); M70.62 Trochanteric bursitis, left hip; Z96.642 Presence of left artificial hip joint
CPT/HCPCS: 97110; 97161; 97164

== ENCOUNTER → 2023-01-21 | Outpatient (CLI) | payer MEDICARE, OTHER, SELFPAY ==
[2019-07-09 08:26] VITALS: BMI 24.0
--- NOTE | 2023-01-21 12:54 | ECHOD_ITS ---
Reason For Study: MVP Procedure This was a 2D Doppler, Color Flow transthoracic echocardiogram. Exam performed in department. Left Ventricle Normal LV size. Left ventricular systolic function is normal. The estimated ejection fraction is 55 %. No regional wall motion abnormalities noted. Right Ventricle Normal RV size. Normal systolic function. Atria Normal left atrium. Normal right atrium. Mitral Valve Normal mitral valve. Tricuspid Valve Normal tricuspid valve. Aortic Valve Trisinus/trileaflet aortic valve. Pulmonic Valve Normal pulmonic valve. Great Vessels Normal aortic root. The pulmonary artery is normal size. Normal inferior vena cava. Pericardium/Pleural No pericardial effusion. MMode/2D Measurements & Calculations LVIDd: 4.6 cm IVSd: 0.84 cm Ao root diam: 3.2 cm LVIDs: 3.0 cm LVPWd: 0.75 cm FS: 34.9 % LAV(MOD-bp): 35.9 ml LVAd ap4: 22.5 cm2 SV(MOD-sp4): 29.7 ml LAV(MOD-bp) Indexed: 20.7 ml/m2 LVLd ap4: 7.3 cm LAV(MOD-sp2): 50.6 ml EDV(MOD-sp4): 57.8 ml LAV(MOD-sp4): 21.4 ml EDV(sp4-el): 58.8 ml LVAs ap4: 14.4 cm2 LVLs ap4: 6.4 cm ESV(MOD-sp4): 28.1 ml ESV(sp4-el): 27.4 ml EF(MOD-sp4): 51.4 % EF(sp4-el): 53.4 % SV(sp4-el): 31.4 ml LA A4 area: 10.2 cm2 LA dimension(2D): 3.5 cm RA A4 area: 10.2 cm2 TAPSE_phl: 2.2 cm Time Measurements MV dec time: 0.20 sec Doppler Measurements & Calculations MV E max fabian: 56.0 cm/sec Lat Peak E' Fabian: 13.1 cm/sec Med Peak E' Fabian: 8.5 cm/sec MV A max fabian: 45.8 cm/sec E/E' lat: 4.3 E/E' med: 6.6 MV E/A: 1.2 MV V2 max: 68.4 cm/sec Ao V2 max: 115.8 cm/sec MV max P.9 mmHg MV dec slope: 337.9 cm/sec2 Ao max P.4 mmHg MV V2 mean: 44.2 cm/sec Ao V2 mean: 81.2 cm/sec MV mean P.87 mmHg Ao mean P.0 mmHg MV V2 VTI: 20.5 cm Ao V2 VTI: 26.2 cm AV (velocity ratio): 0.84 LV V1 max: 100.8 cm/sec MR max fabian: 361.9 cm/sec PA V2 max: 74.6 cm/sec LV V1 max P.1 mmHg MR max P.4 mmHg PA V2 mean: 49.4 cm/sec LV V1 mean P.4 mmHg LV V1 mean: 72.2 cm/sec LV V1 VTI: 22.0 cm ECHO/Echo Complete Interpretation Summary Normal LV size. Left ventricular systolic function is normal. The estimated ejection fraction is 55 %. Structurally normal valves. Ordering Physician: Ana Almonte Referring Physician: Ana Almonte Performed By: Kayleigh Zuleta RCS
== END | disposition home or self-care (01) ==
PROVIDERS: PCP Internal Medicine; Referring Provider Internal Medicine Cardiovascular Disease; Visit Provider Internal Medicine Cardiovascular Disease
DX: G47.33 Obstructive sleep apnea (adult) (pediatric) (principal); I34.1 Nonrheumatic mitral (valve) prolapse
CPT/HCPCS: 93306

== ENCOUNTER 2023-02-01 10:57 | Outpatient (CLI) | payer MEDICARE, OTHER, SELFPAY ==
[2019-07-09 08:26] VITALS: BMI 24.0
[2023-02-01 11:00] VITALS: BP 110/66; PULSE 73; RESP 16; TEMP 36.2; O2SAT 95
[2023-02-01] MEDS: Benralizumab 30 MG/ML Syringe SC (11:03)
== END 2023-02-01 10:58 | disposition home or self-care (01) ==
LOC: MEDOUTP 10:57
PROVIDERS: PCP Internal Medicine; Referring Provider Nurse Practitioner Acute Care; Visit Provider Nurse Practitioner Acute Care
DX: J45.50 Severe persistent asthma, uncomplicated (principal)
CPT/HCPCS: 96372; J0517

== ENCOUNTER → 2023-02-28 | Outpatient (CLI) | payer MEDICARE, OTHER, SELFPAY ==
[2019-07-09 08:26] VITALS: BMI 24.0
[2023-02-28 12:20] LABS: Creatinine, Serum 0.96 mg/dL (0.55-1.02); EST Glomerular Filtration Rate 61 mL/min (>60); Est Glom Filt Rate - Afr Amer 74 mL/min (>60)
== END | disposition home or self-care (01) ==
PROVIDERS: PCP Internal Medicine; Referring Provider Orthopaedic Surgery Orthopaedic Surgery of the Spine; Visit Provider Orthopaedic Surgery Orthopaedic Surgery of the Spine
DX: R60.0 Localized edema (principal)
CPT/HCPCS: 36415; 82565

== ENCOUNTER 2023-03-29 14:07 | Outpatient (CLI) | payer MEDICARE, OTHER, SELFPAY ==
[2019-07-09 08:26] VITALS: BMI 24.0
[2023-03-29 14:26] VITALS: BP 107/62; PULSE 76; RESP 16; TEMP 36.2; O2SAT 95; BMI 24.9
[2023-03-29] MEDS: Benralizumab 30 MG/ML Syringe SC (14:38)
== END 2023-03-29 14:08 | disposition home or self-care (01) ==
LOC: MEDOUTP 14:07
PROVIDERS: PCP Internal Medicine; Referring Provider Nurse Practitioner Acute Care; Visit Provider Nurse Practitioner Acute Care
DX: J45.50 Severe persistent asthma, uncomplicated (principal)
CPT/HCPCS: 96372; J0517

== ENCOUNTER → 2023-05-22 | Outpatient (CLI) | payer MEDICARE, OTHER, SELFPAY ==
[2019-07-09 08:26] VITALS: BMI 24.0
[2023-05-22 09:46] LABS: Absolute Lymphocyte Count 1.71 X10^3/uL (0.83-4.51); Absolute Neutrophil Count 2.4 X10^3/uL (2.0-7.7); Basophil# 0.01 X10^3/uL; Basophil% 0.2 % (0-1); Hematocrit 42.3 % (37-47); Hemoglobin 13.8 g/dL (12.0-15.0); Lymphocyte # 1.71 X10^3/ul (0.83-4.51); Lymphocyte % 37.1 % (19-41); Mean Corp Hgb Conc 32.6 g/dL (32-36); Mean Corpuscular Hgb 30.1 pg (27.0-32.0); Mean Corpuscular Volume 92.2 fL (81-99); Mean Platelet Vol. 10.8 fl (6.2-12.0); Monocyte# 0.51 X10^3/uL; Monocyte% 11.1 % (0-10); NRBC Flagged by Analyzer 0 % (0-5); Neutrophil # 2.37 X10^3/uL (2.7-7.7); Neutrophil % 51.4 % (47-70); Platelet Count 287 K/mm3 (150-450); RBC Distribution Width CV 13.9 % (11.6-14.6); RBC Distribution Width SD 47.2 fl (35.1-43.9); Red Blood Count 4.59 M/mm3 (4.2-5.4); White Blood Count 4.6 K/mm3 (4.4-11.0)
[2023-05-22 10:25] LABS: CRP < 2.90 mg/L (0.0-3.0)
[2023-05-22 10:51] LABS: Erythrocyte Sedimentation Rate 11 mm/hr (0-30)
== END | disposition home or self-care (01) ==
LOC: LAB 09:01
PROVIDERS: PCP Internal Medicine
DX: Z96.642 Presence of left artificial hip joint (principal)
CPT/HCPCS: 36415; 85025; 85652; 86140

== ENCOUNTER 2023-05-24 10:53 | Outpatient (CLI) | payer MEDICARE, OTHER, SELFPAY ==
[2019-07-09 08:26] VITALS: BMI 24.0
[2023-05-24 11:04] VITALS: BP 102/63; PULSE 84; RESP 16; TEMP 36.2; O2SAT 96; BMI 25.5
[2023-05-24] MEDS: Benralizumab 30 MG/ML Syringe SC (11:07)
== END 2023-05-24 10:54 | disposition home or self-care (01) ==
LOC: MEDOUTP 10:53
PROVIDERS: PCP Internal Medicine; Referring Provider Nurse Practitioner Acute Care; Visit Provider Nurse Practitioner Acute Care
DX: J45.50 Severe persistent asthma, uncomplicated (principal)
CPT/HCPCS: 96372; J0517

== ENCOUNTER → 2023-07-08 | Outpatient (CLI) | payer MEDICARE, OTHER, SELFPAY ==
[2019-07-09 08:26] VITALS: BMI 24.0
--- NOTE | 2023-07-08 09:23 | BI_ITS ---
MAMMOGRAPHY - BILATERAL SCREENING REASON FOR EXAM: Female, 68 years old. Routine annual screening examination. PERTINENT HISTORY: Personal history of breast cancer. Prior left lumpectomy with radiation treatment. TECHNIQUE: Digital bilateral breast janie (3D mammographic acquisition) in the CC and MLO projections. 2-D mediolateral oblique (MLO) and craniocaudad (CC) views of both breasts were obtained. CAD: Full Field Digital Mammography with Computer Added Detection was performed. COMPARISON: Comparison is made with prior study dated July 06, 2022 and July 03, 2021. FINDINGS: Breast Composition: The breasts are heterogeneously dense, which may obscure small masses. There are no dominant masses or suspicious calcifications. The patient is status post lumpectomy in the upper outer quadrant of the left breast with resultant scarring at the operative site. Once again, surgical clips are seen in the left axillary region. No other significant abnormalities are identified. There has been no significant change since the prior study. BI/SCRN MAMM (CAD)W/JANIE BILAT IMPRESSION: Stable bilateral screening mammogram. Yearly follow-up mammogram recommended. (A) ASSESSMENT CATEGORY: BIRADS Category 2: Benign. A letter regarding these results will be sent to the patient by the facility within 30 days. Approximately 10% of breast cancers are not detected by mammography. A normal mammogram should not delay biopsy of a clinically suspicious abnormality. [id number] Electronically Signed: Bo Villalpando MD at 11:06 EDT ,
[2023-07-08 10:22] LABS: Absolute Lymphocyte Count 1.53 X10^3/uL (0.83-4.51); Absolute Neutrophil Count 3.9 X10^3/uL (2.0-7.7); Basophil# 0.02 X10^3/uL; Basophil% 0.3 % (0-1); Hematocrit 43.5 % (37-47); Hemoglobin 13.8 g/dL (12.0-15.0); Lymphocyte # 1.53 X10^3/ul (0.83-4.51); Lymphocyte % 25.3 % (19-41); Mean Corp Hgb Conc 31.7 g/dL (32-36); Mean Corpuscular Hgb 29.6 pg (27.0-32.0); Mean Corpuscular Volume 93.3 fL (81-99); Mean Platelet Vol. 10.8 fl (6.2-12.0); Monocyte% 9.9 % (0-10); NRBC Flagged by Analyzer 0 % (0-5); Neutrophil # 3.88 X10^3/uL (2.7-7.7); Neutrophil % 64.3 % (47-70); Platelet Count 281 K/mm3 (150-450); RBC Distribution Width CV 14.3 % (11.6-14.6); RBC Distribution Width SD 49.3 fl (35.1-43.9); Red Blood Count 4.66 M/mm3 (4.2-5.4)
[2023-07-08 10:47] LABS: Hemoglobin A1c 5.5 % (3.8-5.6)
[2023-07-08 10:48] LABS: AST(SGOT) 16 U/L (15-37); Alanine Aminotransfer ALT/SGPT 23 U/L (13-56); Albumin, Serum 3.4 g/dL (3.2-5.0); Alkaline Phosphatase 54 U/L (45-117); Anion Gap 1 (5-15); BUN 25 mg/dL (7-18); BUN/Creat Ratio 24.8 RATIO (10-20); Calcium,Total 9.6 mg/dL (8.5-10.1); Chloride 108 mmol/L (98-107); Cholesterol 207 mg/dL (200); Creatinine, Serum 1.01 mg/dL (0.55-1.02); EST Glomerular Filtration Rate 58 mL/min (>60); Est Glom Filt Rate - Afr Amer 70 mL/min (>60); Globulin 3.5 g/dL (2.2-4.2); Glucose 100 mg/dL (74-106); High Density Lipoprotein 71 mg/dL; Potassium 4.8 mmol/L (3.5-5.1); Protein, Total 6.9 g/dL (6.4-8.2); Sodium Level 141 mmol/L (136-145); Thyroid Stim Hormone (TSH) 2.75 uIU/mL (0.358-3.74); Triglycerides 73 mg/dL; Very Low Density Lipoprotein 15 mg/dL (5-40)
== END | disposition home or self-care (01) ==
PROVIDERS: PCP Internal Medicine; Referring Provider Internal Medicine Hematology & Oncology; Visit Provider Internal Medicine Hematology & Oncology
DX: Z12.31 Encounter for screening mammogram for malignant neoplasm of breast (principal); R73.09 Other abnormal glucose; E78.5 Hyperlipidemia, unspecified
CPT/HCPCS: 36415; 77063; 77067; 80053; 80061; 83036; 84443; 85025

== ENCOUNTER 2023-07-19 11:06 | Outpatient (CLI) | payer MEDICARE, OTHER, SELFPAY ==
[2019-07-09 08:26] VITALS: BMI 24.0
[2023-07-19 11:16] VITALS: BP 89/56; PULSE 70; RESP 16; TEMP 36.1; O2SAT 93; BMI 23.5
[2023-07-19] MEDS: Benralizumab 30 MG/ML Syringe SC (11:20)
[2023-07-19 12:01] VITALS: BP 98/60; PULSE 60; RESP 16
== END 2023-07-19 11:07 | disposition home or self-care (01) ==
LOC: MEDOUTP 11:06
PROVIDERS: PCP Internal Medicine; Referring Provider Nurse Practitioner Acute Care; Visit Provider Nurse Practitioner Acute Care
DX: J45.50 Severe persistent asthma, uncomplicated (principal)
CPT/HCPCS: 96372; J0517

== ENCOUNTER 2023-09-13 11:29 | Outpatient (CLI) | payer MEDICARE, OTHER, SELFPAY ==
[2019-07-09 08:26] VITALS: BMI 24.0
[2023-09-13 11:41] VITALS: BP 111/65; PULSE 78; RESP 16; TEMP 36.4; O2SAT 96; BMI 23.1
[2023-09-13] MEDS: Benralizumab 30 MG/ML Syringe SC (11:43)
== END 2023-09-13 11:30 | disposition home or self-care (01) ==
LOC: MEDOUTP 11:29
PROVIDERS: PCP Internal Medicine; Referring Provider Nurse Practitioner Acute Care; Visit Provider Nurse Practitioner Acute Care
DX: J45.50 Severe persistent asthma, uncomplicated (principal)
CPT/HCPCS: 96372; J0517

== ENCOUNTER → 2023-09-13 | Outpatient (CLI) | payer MEDICARE, OTHER, SELFPAY ==
[2019-07-09 08:26] VITALS: BMI 24.0
== END | disposition home or self-care (01) ==
LOC: LABSPEC 15:06
PROVIDERS: PCP Internal Medicine; Referring Provider Physician Assistant Surgical; Visit Provider Physician Assistant Surgical
DX: N39.0 Urinary tract infection, site not specified (principal)
CPT/HCPCS: 87086

== ENCOUNTER → 2023-09-17 | Outpatient (CLI) | payer MEDICARE, OTHER, SELFPAY ==
[2019-07-09 08:26] VITALS: BMI 24.0
--- NOTE | 2023-09-17 11:01 | BD_ITS ---
STUDY: DUAL ENERGY X-RAY ABSORPTIOMETRY / DXA REASON FOR EXAM: Female, 68 years old. SCREENING TECHNIQUE: Bone Mineral Density (BMD) measurements of lumbar spine and left forearm were obtained. COMPARISON: Comparison is made with prior study dated September 12, 2021. FINDINGS: Lumbar Spine (L1-L4): g/cm2 (0.991) / T-score (-0.5) / Z-score (1.6) Findings are suggestive of normal bone density with a low fracture risk. Left Forearm: g/cm2 (0.589) / T-score (0.2) / Z-score (2.2) The T-Scores on the most recent prior examination were: Lumbar Spine (L1-L4): There has been improvement of bone density since the previous examination. BD/Dexa Bone Density Study IMPRESSION: The patient is considered normal as outlined below according to World Dereck Organization (WHO) criteria with a low fracture risk. There has been improvement of bone density since the previous examination. Reference Information: The T-score is the number of standard deviations above or below the standard which is normal for young adults at their peak bone mineral density. The World Health Organization (WHO) interprets the T-scores as follows: Above -1 Normal bone density Between -1 and -2.5 Osteopenia Equal to / or below -2.5 Osteoporosis As a practical clinical guideline, osteopenia may be graded as follows: Mild -1 through -1.5 Moderate -1.6 through -2.0 Severe -2.1 through -2.4 The Z-score is the number of standard deviations above or below age-matched controls. A Z-score of less than -1.5 would be considered abnormal. References: 1. NIH Osteoporosis and Related Bone Diseases www osteo.org 2. International Society for Clinical Densitometry www iscd.org 3. National Osteoporosis Foundation www nof.org Electronically Signed: Bo Villalpando MD at 14:36 EST ,
== END | disposition home or self-care (01) ==
LOC: OPBD 11:00
PROVIDERS: PCP Internal Medicine; Referring Provider Internal Medicine Hematology & Oncology; Visit Provider Internal Medicine Hematology & Oncology
DX: M81.8 Other osteoporosis without current pathological fracture (principal)
CPT/HCPCS: 77080

== ENCOUNTER 2023-11-08 11:57 | Outpatient (CLI) | payer MEDICARE, OTHER, SELFPAY ==
[2019-07-09 08:26] VITALS: BMI 24.0
[2023-11-08 12:12] VITALS: PULSE 72; RESP 16; TEMP 36.9; O2SAT 97
[2023-11-08] MEDS: Benralizumab 30 MG/ML Syringe SC (12:14)
== END 2023-11-08 11:58 | disposition home or self-care (01) ==
LOC: MEDOUTP 11:58
PROVIDERS: PCP Internal Medicine; Referring Provider Nurse Practitioner Acute Care; Visit Provider Nurse Practitioner Acute Care
DX: J45.50 Severe persistent asthma, uncomplicated (principal)
CPT/HCPCS: 96372; J0517

== ENCOUNTER 2024-01-03 11:58 | Outpatient (CLI) | payer MEDICARE, OTHER, SELFPAY ==
[2019-07-09 08:26] VITALS: BMI 24.0
[2024-01-03 12:08] VITALS: BP 106/64; PULSE 73; RESP 16; TEMP 35.5; O2SAT 97; BMI 24.0
[2024-01-03] MEDS: Benralizumab 30 MG/ML Syringe SC (12:10)
== END 2024-01-03 11:59 | disposition home or self-care (01) ==
LOC: MEDOUTP 11:58
PROVIDERS: PCP Internal Medicine; Referring Provider Nurse Practitioner Acute Care; Visit Provider Nurse Practitioner Acute Care
DX: J45.50 Severe persistent asthma, uncomplicated (principal)
CPT/HCPCS: 96372; J0517

== ENCOUNTER 2024-03-02 09:32 | Outpatient (CLI) | payer MEDICARE, OTHER, SELFPAY ==
[2019-07-09 08:26] VITALS: BMI 24.0
[2024-03-02 09:35] VITALS: BP 125/71; PULSE 78; RESP 16; TEMP 36.7; O2SAT 98
[2024-03-02] MEDS: Benralizumab 30 MG/ML Syringe SC (10:07)
== END 2024-03-02 23:59 | disposition home or self-care (01) ==
LOC: MEDOUTP 09:32
PROVIDERS: PCP Internal Medicine; Referring Provider Nurse Practitioner Acute Care; Visit Provider Nurse Practitioner Acute Care
DX: J45.50 Severe persistent asthma, uncomplicated (principal)
CPT/HCPCS: 96372; J0517

== ENCOUNTER 2024-04-30 12:59 | Outpatient (CLI) | payer MEDICARE, OTHER, SELFPAY ==
[2019-07-09 08:26] VITALS: BMI 24.0
[2024-04-30 13:03] VITALS: BP 116/72; PULSE 88; RESP 16; TEMP 36.1; O2SAT 99
[2024-04-30] MEDS: Benralizumab 30 MG/ML Syringe SC (13:11)
== END 2024-04-30 23:59 | disposition home or self-care (01) ==
LOC: MEDOUTP 12:59
PROVIDERS: PCP Internal Medicine; Referring Provider Nurse Practitioner Acute Care; Visit Provider Nurse Practitioner Acute Care
DX: J45.50 Severe persistent asthma, uncomplicated (principal)
CPT/HCPCS: 96372; J0517

== ENCOUNTER → 2024-06-16 | Outpatient (CLI) | payer MEDICARE, OTHER, SELFPAY ==
[2024-05-21 10:52] VITALS: BMI 24.0
== END | disposition home or self-care (01) ==
LOC: SL 11:38
PROVIDERS: PCP Internal Medicine; Referring Provider Nurse Practitioner Acute Care; Visit Provider Nurse Practitioner Acute Care
DX: G47.33 Obstructive sleep apnea (adult) (pediatric) (principal)
CPT/HCPCS: 98960; G0463

== ENCOUNTER 2024-06-26 12:50 | Outpatient (CLI) | payer MEDICARE, OTHER, SELFPAY ==
[2024-05-21 10:52] VITALS: BMI 24.0
[2024-06-26] MEDS: Benralizumab 30 MG/ML Syringe SC (13:05)
[2024-06-26 13:17] VITALS: BP 102/66; PULSE 72; RESP 16; TEMP 35.9; O2SAT 96; BMI 24.0
[2024-06-26] MEDS: DENOSUMAB 60 MG/ML SC (13:20)
== END 2024-06-26 23:59 | disposition home or self-care (01) ==
LOC: MEDOUTP 12:50
PROVIDERS: PCP Internal Medicine; Referring Provider Internal Medicine; Visit Provider Internal Medicine
DX: M81.0 Age-related osteoporosis without current pathological fracture (principal)
CPT/HCPCS: 96372; J0517; J0897

== ENCOUNTER → 2024-07-09 | Outpatient (CLI) | payer MEDICARE, OTHER, SELFPAY ==
[2024-05-21 10:52] VITALS: BMI 24.0
--- NOTE | 2024-07-09 10:43 | BI_ITS ---
MAMMOGRAPHY - BILATERAL SCREENING REASON FOR EXAM: Female, 69 years old. Routine annual screening examination. PERTINENT HISTORY: Personal history of breast cancer. Prior left lumpectomy and radiation therapy. TECHNIQUE: Digital bilateral breast janie (3D mammographic acquisition) in the CC and MLO projections. 2-D mediolateral oblique (MLO) and craniocaudad (CC) views of both breasts were obtained. CAD: Full Field Digital Mammography with Computer Added Detection was performed. COMPARISON: Comparison is made with prior study July 08, 2023 and July 06, 2022. FINDINGS: Breast Composition: The breasts are heterogeneously dense, which may obscure small masses. There are no dominant masses or suspicious calcifications. Once again, the patient is status post lumpectomy in the upper outer quadrant of the left breast with resultant scarring and breast deformity at the operative site. Surgical clips are seen in the right axilla. Dystrophic calcifications seen at the surgical site. No other significant abnormalities are identified. There has been no significant change since the prior study. BI/SCRN MAMM (CAD)W/JANIE BILAT IMPRESSION: Stable bilateral screening mammogram. Yearly follow-up mammogram recommended. (A) ASSESSMENT CATEGORY: BIRADS Category 2: Benign. A letter regarding these results will be sent to the patient by the facility within 30 days. Approximately 10% of breast cancers are not detected by mammography. A normal mammogram should not delay biopsy of a clinically suspicious abnormality. [id number] Electronically Signed: Bo Villalpando MD at 11:56 EDT ,
== END | disposition home or self-care (01) ==
LOC: OPBI 10:42
PROVIDERS: PCP Internal Medicine; Referring Provider Internal Medicine Hematology & Oncology; Visit Provider Internal Medicine Hematology & Oncology
DX: Z12.31 Encounter for screening mammogram for malignant neoplasm of breast (principal)
CPT/HCPCS: 77063; 77067

== ENCOUNTER → 2024-07-23 | Outpatient (CLI) | payer MEDICARE, OTHER, SELFPAY ==
[2024-05-21 10:52] VITALS: BMI 24.0
== END | disposition home or self-care (01) ==
LOC: SL 13:20
PROVIDERS: PCP Internal Medicine; Referring Provider Nurse Practitioner Acute Care; Visit Provider Nurse Practitioner Acute Care
DX: Z46.89 Encounter for fitting and adjustment of other specified devices (principal)

== ENCOUNTER 2024-08-21 11:19 | Outpatient (CLI) | payer MEDICARE, OTHER, SELFPAY ==
[2024-05-21 10:52] VITALS: BMI 24.0
[2024-08-21 11:34] VITALS: BP 115/73; PULSE 75; RESP 16; TEMP 36.2; O2SAT 96; BMI 24.0
[2024-08-21] MEDS: Benralizumab 30 MG/ML Syringe SC (11:37)
== END 2024-08-21 23:59 | disposition home or self-care (01) ==
LOC: MEDOUTP 11:19
PROVIDERS: PCP Internal Medicine; Referring Provider Nurse Practitioner Acute Care; Visit Provider Nurse Practitioner Acute Care
DX: J45.50 Severe persistent asthma, uncomplicated (principal)
CPT/HCPCS: 96372; J0517

== ENCOUNTER 2024-10-16 10:35 | Outpatient (CLI) | payer MEDICARE, OTHER, SELFPAY ==
[2024-05-21 10:52] VITALS: BMI 24.0
[2024-10-16 11:03] VITALS: BP 108/70; PULSE 71; RESP 16; TEMP 36.2; O2SAT 96; BMI 24.0
[2024-10-16] MEDS: Benralizumab 30 MG/ML Syringe SC (11:10)
== END 2024-10-16 23:59 | disposition home or self-care (01) ==
LOC: MEDOUTP 10:37
PROVIDERS: PCP Internal Medicine; Referring Provider Nurse Practitioner Acute Care; Visit Provider Nurse Practitioner Acute Care
DX: J45.50 Severe persistent asthma, uncomplicated (principal)
CPT/HCPCS: 96372; J0517

== ENCOUNTER → 2024-11-27 | Outpatient (CLI) | payer MEDICARE, OTHER, SELFPAY ==
[2024-05-21 10:52] VITALS: BMI 24.0
--- NOTE | 2024-11-27 12:48 | NM_ITS ---
PROCEDURE: GASTRIC EMPTYING STUDY REASON FOR EXAM: BLOATING TECHNIQUE: The patient ingested a mixture of 1.2 mCi of technetium labeled sulfur colloid with oatmeal. Gastric emptying study was performed. RADIOPHARMACEUTICAL: 1.2 mCi of technetium labeled sulfur colloid. COMPARISON: None. FINDINGS: At 60 minutes, there is 63% radiopharmaceutical exiting the stomach. This is a normal study. NM/Gastric Emptying Study IMPRESSION: NO SCINTIGRAPHIC EVIDENCE OF gastric emptying abnormality. Reading Location: [place] [id number]
== END | disposition home or self-care (01) ==
PROVIDERS: PCP Internal Medicine; Referring Provider Student in an Organized Health Care Education/Training Program; Visit Provider Student in an Organized Health Care Education/Training Program
DX: R14.0 Abdominal distension (gaseous) (principal); K59.00 Constipation, unspecified
CPT/HCPCS: 78264; A9541

== ENCOUNTER 2024-12-11 10:35 | Outpatient (CLI) | payer MEDICARE, OTHER, SELFPAY ==
[2024-05-21 10:52] VITALS: BMI 24.0
[2024-12-11 10:54] VITALS: BP 109/65; PULSE 77; RESP 16; TEMP 36.2; O2SAT 95
[2024-12-11] MEDS: Benralizumab 30 MG/ML Syringe SC (10:59)
== END 2024-12-11 23:59 | disposition home or self-care (01) ==
LOC: MEDOUTP 10:36
PROVIDERS: PCP Internal Medicine; Referring Provider Nurse Practitioner Acute Care; Visit Provider Nurse Practitioner Acute Care
DX: J45.50 Severe persistent asthma, uncomplicated (principal)
CPT/HCPCS: 96372; J0517

== ENCOUNTER 2024-12-25 09:19 | Outpatient (CLI) | payer MEDICARE, OTHER, SELFPAY ==
[2024-05-21 10:52] VITALS: BMI 24.0
[2024-12-25 09:33] VITALS: BP 99/66; PULSE 77; RESP 16; TEMP 36.2; O2SAT 94; BMI 24.0
[2024-12-25] MEDS: DENOSUMAB 60 MG/ML SC (09:47)
== END 2024-12-25 23:59 | disposition home or self-care (01) ==
LOC: MEDOUTP 09:19
PROVIDERS: PCP Internal Medicine; Referring Provider Internal Medicine; Visit Provider Internal Medicine
DX: M81.0 Age-related osteoporosis without current pathological fracture (principal)
CPT/HCPCS: 96372; J0897

== ENCOUNTER → 2024-12-30 | Outpatient (CLI) | payer MEDICARE, OTHER, SELFPAY ==
[2024-05-21 10:52] VITALS: BMI 24.0
--- NOTE | 2024-12-30 06:22 | ECHOD_ITS ---
Reason For Study Reason For Study: Mitral Valve Prolapse Procedure This was a 2D Doppler, Color Flow transthoracic echocardiogram. Myocardial strain analysis was performed in this exam to aid in the assessment of cardiac function. Exam performed in department. Left Ventricle Normal size and thickness. The global longitudinal strain = -17.1 % (normal). The LV systolic function is normal. EF is 65 %. Normal diastology for age. Right Ventricle Normal right ventricle. Atria The left and right atria are normal. Cannot exclude tiny PFO. Mitral Valve No mitral valve prolapse. Mild (1+) mitral valve insufficiency. Tricuspid Valve Mild tricuspid valve insufficiency. Normal pulmonary artery pressure. Aortic Valve Trisinus/trileaflet aortic valve. Pulmonic Valve The pulmonic valve is not well visualized. Mild-Moderate (1-2+) pulmonic valve insufficiency. Great Vessels Normal sized aortic root. Pericardium/Pleural No pericardial effusion. MMode/2D Measurements & Calculations LVIDd: 4.5 cm IVSd: 0.95 cm Ao root diam: 3.1 cm LVIDs: 3.0 cm LVPWd: 0.77 cm RVDd: 3.4 cm FS: 33.6 % LAV(MOD-bp): 37.4 ml LVAd ap4: 22.7 cm2 SV(MOD-sp4): 34.5 ml LAV(MOD-bp) Indexed: 22.0 ml/m2 LVLd ap4: 6.9 cm SI(MOD-sp4): 20.3 ml/m2 LAV(MOD-sp2): 40.1 ml EDV(MOD-sp4): 61.2 ml LAV(MOD-sp4): 34.3 ml EDV(sp4-el): 63.5 ml LVAs ap4: 13.9 cm2 LVLs ap4: 6.2 cm ESV(MOD-sp4): 26.7 ml ESV(sp4-el): 26.4 ml EF(MOD-sp4): 56.4 % EF(sp4-el): 58.4 % SV(sp4-el): 37.1 ml LA A4 area: 14.5 cm2 LA dimension(2D): 3.6 cm RA A4 area: 12.3 cm2 TAPSE: 2.0 cm Time Measurements MV dec time: 0.19 sec Doppler Measurements & Calculations MV E max fabian: 57.1 cm/sec Lat Peak E' Fabian: 13.0 cm/sec Med Peak E' Fabian: 9.6 cm/sec MV A max fabian: 61.2 cm/sec E/E' lat: 4.4 E/E' med: 6.0 MV E/A: 0.93 MV V2 max: 78.5 cm/sec MV P1/2t max fabian: 77.8 cm/sec Ao V2 max: 99.2 cm/sec MV max P.5 mmHg MV P1/2t: 67.6 msec Ao max P.9 mmHg MV V2 mean: 40.6 cm/sec Ao V2 mean: 67.2 cm/sec MV mean P.78 mmHg MV dec slope: 337.0 cm/sec2 Ao mean P.1 mmHg MV V2 VTI: 23.9 cm MVA(P1/2t): 3.3 cm2 Ao V2 VTI: 23.8 cm AV (velocity ratio): 0.83 LV V1 max: 83.5 cm/sec PA V2 max: 80.9 cm/sec LV V1 max P.8 mmHg PI dec slope: 187.9 cm/sec2 LV V1 mean P.6 mmHg LV V1 mean: 58.7 cm/sec LV V1 VTI: 19.8 cm TR max fabian: 205.9 cm/sec TR max P.0 mmHg ECHO/Echo Complete Interpretation Summary The global longitudinal strain = -17.1 % (normal). The LV systolic function is normal. EF is 65 %. Cannot exclude tiny PFO. Mild tricuspid valve insufficiency. Mild-Moderate (1-2+) pulmonic valve insufficiency. Mild (1+) mitral valve insufficiency. Ordering Physician: Ana Almonte Referring Physician: Ana Almonte Performed By: Thomas Zavala RCS
--- NOTE | 2024-12-30 17:16 | STRESSREP_ITS ---
Stress Test Report Date: 12/30/2024 Procedure: Exercise tolerance test/imaging study Indications: Chest pain Consent: Per the patient Procedure: The patient exercised on a Russell protocol for 6 minutes and 59 seconds achieving a peak heart rate of 1 6 bpm (107% predicted maximal heart rate) with a peak blood pressure 134/72 mmHg and a peak MET capacity of 10.1 METs. The baseline ECG demonstrated sinus rhythm. The peak exercise ECG demonstrated no ischemic changes. There were no cardiac dysrhythmias pretest, during exercise, or recovery. The functional capacity was considered good. There was no complaint of chest discomfort during exercise or recovery. The examination was discontinued secondary to target heart rate being achieved. The patient was injected with 11.1 mCi of technetium 99m Cardiolite and subsequently rest SPECT Cardiolite nuclear imaging was obtained in the horizontal long, vertical long, and short axis views. Post-exercise, the patient was injected with 34.7 mCi of technetium 99m Cardiolite and subsequently stress SPECT Cardiolite nuclear imaging was obtained in the horizontal long, vertical long, and short axis views. A gated Cardiolite study at peak stress was obtained. Rest and stress SPECT Cardiolite nuclear imaging status post realignment, normalization, and attenuation correction, demonstrates the appearance of relative uniform tracer uptake and myocardial perfusion appearing within normal limits. There is end systolic thickening and brightening. The gated Cardiolite study demonstrates myocardial thickening and inward wall motion. The reported LVEF is 73%. Impression: 1. Technically adequate (percent predicted maximal heart rate greater than 85%) exercise tolerance test 2. Peak exercise ECG with no ischemic changes 3. There were no cardiac dysrhythmias pretest, during exercise, or recovery 4. Rest and stress SPECT Cardiolite nuclear imaging demonstrate relative uniform tracer uptake and myocardial perfusion appearing within normal limits. 5. The gated Cardiolite study reports an LVEF of 73%. This note was generated with [employer]ation software. It may contain incorrect words, spelling, and punctuation that were not noted in checking the note before signing.
== END | disposition home or self-care (01) ==
LOC: CVS 06:20
PROVIDERS: PCP Internal Medicine; Referring Provider Internal Medicine Cardiovascular Disease; Visit Provider Internal Medicine Cardiovascular Disease
DX: I34.1 Nonrheumatic mitral (valve) prolapse (principal); R06.09 Other forms of dyspnea
CPT/HCPCS: 78452; 93017; 93306; A9500; A4216

== ENCOUNTER 2025-01-05 12:38 | Day surgery (SDC) | payer MEDICARE, OTHER, SELFPAY ==
[2024-05-21 10:52] VITALS: BMI 24.0
--- NOTE | 2024-12-31 15:37 | PAT.ANESEVAL ---
Pre-Assessment Diagnosis/Proposed Procedure Planned Operative Procedure(s): COLONOSCOPY/EGD Anesthesia History Anesthesia History - trim machine adjuster: Anesthesia History - trim machine adjuster Hx Hospitalization No 12/31/24 12:08 Any Problems With Anesthesia No 12/31/24 12:08 Cholinesterase deficiency No 12/31/24 12:08 You/Your Family Experience No 12/31/24 12:08 fever (hyperthermia) with Relationship Recent Exposure to Contagious No 05/21/24 10:52 Disease Does patient have nerve Yes: BLADDER STIMULATOR 12/31/24 12:08 stimulator Patient instructed to have device shut off --Does patient have Pacemaker or ICD? When Was Last Pacemaker Check QUESTION #4 FULL TEXT: You/Your Family Experience fever (hyperthermia) with Anesthesia Last Oral Intake Last Oral intake: Last Oral Intake NPO since Meds taken in AM with sips of water? Meds patient instructed to take am of surgery PONV PONV - trim machine adjuster: PONV - trim machine adjuster Female Yes 12/31/24 12:08 HX of Motion Sickness No 12/31/24 12:08 HX of N/V After Surgery No 12/31/24 12:08 Non-Smoker Yes 12/31/24 12:08 Duration of Surgery greater No 12/31/24 12:08 than 60 minutes Number of Risk Factors 2 12/31/24 12:08 PONV Score Moderate Risk 12/31/24 12:08 Height & Weight Height & Weight: Anesthesia: Height & Weight Height 5 ft 4 in 10/19/24 08:36 Respiratory Assessment Respiratory Assessment - trim machine adjuster: Respiratory Tract Infection Hx - trim machine adjuster Hx Respiratory Tract Infection No 12/31/24 12:08 STOP Sleep Apnea STOP Sleep Apnea - trim machine adjuster: STOP Sleep Apnea - trim machine adjuster Hx Hypertension No 12/31/24 12:08 Hx Sleep Apnea No 12/31/24 12:08 CPAP No 12/31/24 12:08 BIPAP Do you snore loudly (louder No 12/31/24 12:08 than talking or can be heard Do you often feel tired/ No 12/31/24 12:08 fatigued/ sleepy during daytime? Has anyone observed you stop No 12/31/24 12:08 breathing during sleep? STOP Results Negative 12/31/24 12:08 QUESTION #5 FULL TEXT : Do you snore loudly (louder than talking or can be heard through closed doors)? 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 Specify any problems Hx of Preganancy in last 3 No 12/31/24 12:08 Months Nurse Filling Out Transfusion VCHRISTIN 12/31/24 12:08 & Questions: Date: 12/31/24 12/31/24 12:08 Time: 12:09 12/31/24 12:08 Patient unable to answer at this time (ie. confused, unrespo /Reproduction History /Reproductive History - trim machine adjuster: /Reproductive Hx- trim machine adjuster Hx Now No 12/31/24 12:08 Gestational Age (in weeks): EDC: Hx Hx Para Hx Section SAB No 12/31/24 12:08 [facility] Medical History (Updated 12/31/24 @ 12:06 by Maddy Gill) Wears glasses Post-menopausal Cancer History of steroid therapy High cholesterol History of hiatal hernia Non-smoker CPAP (continuous positive airway pressure) dependence Sleep apnea Leg cramps History of echocardiogram History of stress test Cardiology follow-up encounter Herpes simplex type 1 infection COVID-19 Osteopenia Tachycardia Hyperglycemia Carpal tunnel syndrome of left wrist Anxiety MVP (mitral valve prolapse) Vitamin D deficiency RLS (restless legs syndrome) Borderline hyperlipidemia Acute pain of left shoulder Osteoarthritis of left shoulder BMI 26.0-26.9,adult Contact with or suspected exposure to other viral communicable disease Weight gain Screening for malignant neoplasm of breast Pain of left femur Pain of left scapula Stress fracture TJ (obstructive sleep apnea) Severe persistent allergic asthma with acute exacerbation History of left breast cancer Hiatal hernia with GERD and esophagitis Chronic GERD Anemia Arthritis Fracture of ankle Thrombocytopenia Hypophosphatemia Aromatase inhibitor use Osteoporosis Asthma Cancer of left female breast Home Medications ?Medication ?Instructions ?Recorded ?Last Taken ?Type paroxetine HCl 20 mg tablet 20 mg PO DAILY depression 04/27/16 09/29/17 History ezetimibe 10 mg tablet 10 mg PO DAILY cholesterol 09/30/17 09/29/17 History benralizumab 30 mg/mL subcutaneous 30 mg subcut Q8W #1 mL 10/07/19 Unknown Rx syringe (Fasenra) calcitriol 0.25 mcg capsule 0.25 mcg PO DAILY 12/10/22 Unknown History cholecalciferol (vitamin D3) 125 125 mcg PO DAILY 12/10/22 Unknown History mcg (5,000 unit) capsule denosumab 60 mg/mL subcutaneous 60 mg subcut [id number] bone health 12/10/22 Unknown History syringe cetirizine 10 mg tablet 10 mg PO DAILY allergies #30 tabs 03/08/23 Unknown Rx glucosamine sulfate 500 mg tablet 500 mg PO QDAY 08/19/24 Unknown History (Glucosamine) magnesium oxide 400 mg PO QDAY 08/19/24 Unknown History melatonin 10 mg capsule 10 mg PO QHS 08/21/24 Unknown History budesonide-formoterol HFA 80 2 puff inhalation PRN shortness of 12/31/24 Unknown History mcg-4.5 mcg/actuation aerosol breath inhaler (Symbicort) Allergy/AdvReac Type Severity Reaction Status Date / Time ampicillin Allergy Severe Other Verified 12/31/24 11:53 cefaclor (From Ceclor) Allergy Severe Other Verified 12/31/24 11:53 ciprofloxacin (From Cipro) Allergy Severe Anaphylaxis Verified 12/31/24 11:53 ciprofloxacin HCl (From Allergy Severe Anaphylaxis Verified 12/31/24 11:53 Cipro) Penicillins Allergy Severe Other Verified 12/31/24 11:53 vancomycin Allergy Severe Swelling Verified 12/31/24 11:53 Family History (Reviewed 12/03/24 @ 08:39 by Latisha Lin SEMIAUTOMATIC TAPER OPERATOR, SEMIAUTOMATIC TAPER OPERATOR-C) Mother Rheumatoid arthritis Pulmonary embolism Phlebitis Father CHF (congestive heart failure) Alcohol abuse Hypertension Sister Diabetes Phlebitis Rheumatoid arthritis Grandmother Heart disease Grandfather Heart disease Surgical History (Updated 12/31/24 @ 12:06 by Maddy Gill) Hx of eye surgery Hx of foot surgery History of bladder surgery History of right hip replacement History of left hip replacement History of repair of hiatal hernia Hx of bilateral cataract extraction Hx of tubal ligation Hx of hysterectomy Hx of dilation and curettage History of lumpectomy of left breast (~05/2017) Hx of colonoscopy History of esophagogastroduodenoscopy (EGD) Post corneal transplant S/P breast biopsy, left Social History (Reviewed 12/03/24 @ 08:39 by Latisha Lin SEMIAUTOMATIC TAPER OPERATOR, SEMIAUTOMATIC TAPER OPERATOR-C) Smoking Status: Never smoker second hand exposure: No alcohol intake: never substance use type: does not use caffeine: Yes what type of physical activity do you participate in: none cely/bahai: Jewish seatbelt use: always do you feel safe at home: Yes additional social history: - [place] Audit: Pertinent Findings Pertinent Findings EKG Perinent findings: December 12, 2022. Sinus rhythm within normal limits. Stress test pertinent findings: December 30, 2024. Ejection fraction 73%. Rest and stress SPECT Cardiolite nuclear imaging demonstrate relative uniform tracer uptake and myocardial perfusion appearing within normal limits. Echo (EF%) pertinent findings: December 30, 2024. Ejection fraction 65%. Normal PA pressure. No aortic stenosis noted. Consult pertinent findings: November 25, 2024. Dr. Almonte. 1. Dyspnea on [id number] likely secondary asthma. Will check stress test to rule out ischemia. Also echo. (See above). 2. Asthma-severe?chronic-management per pulmonology. 3. Obstructive sleep apnea?chronic-management per sleep medicine. Recommendation Anesthesia Recommendation Anesthesia recommendation: OPTIMIZED for anesthesia
[2025-01-05] VITALS (8 sets, daily range): BP systolic 91–108; BP diastolic 59–81; PULSE 60–68; RESP 14–18; TEMP 35.7–36.7; O2SAT 97–100; BMI 27.3
--- NOTE | 2025-01-05 13:45 | EGD_PTH ---
PATIENT: HEIKE ARROYO LOC: EN U#:[id number] AGE/SX: 69/F ROOM: RE01/05/[address]: Dr. Nicola Galvan DO : 1955 BED: DIS: 01/05/2025 SPEC #: [id number] RECD: 01/06/25 11:18 STATUS: KAVITHA MARCOS #: [id number] TWYLA: 01/05/25 13:[address]: Nicola Galvan DEPT: SURGICAL PATHOLOGY RECD BY: Aydin Byrne ENTERED: 01/06/25 11:19 SP TYPE: EGD BIOPSY RODERICK DR: Dr. Genesis Baldwin DO Tissues: A - Esophagus, NOS B - Ileum, NOS C - COLON BIOPSY Procedures: Surgery Specimen Level IV HEADER OPERATION: Colonoscopy, EGD, biopsy PRE-OP DIAGNOSIS: Abdominal bloating, constipation, chronic GERD TISSUE SUBMITTED: A- Distal esophagus biopsy, B- Terminal ileum biopsy, C- Random colonic biopsy MICROSCOPIC DIAGNOSIS A. Distal esophagus, biopsy: * Squamous mucosa with marked reactive changes. * Columnar mucosa negative for goblet cell metaplasia. B. Small bowel, terminal ileum, biopsy: * No specific pathologic change. C. Colon, random, biopsy: * No specific pathologic change. * The histologic features of microscopic colitis are not identified. MICROSCOPIC DESCRIPTION Slides are reviewed. GROSS DESCRIPTION A. Received in formalin in a container labeled with the patient's name, date of , and distal esophagus biopsy is a 0.3 x 0.3 x 0.3 cm fragment of murrieta-pink mucosal tissue. Submitted in toto in A1. B. Received in formalin in a container labeled with the patient's name, date of , and terminal ileum biopsy are 2 murrieta-pink fragments of mucosal tissue, each measuring 0.3 x 0.2 x 0.2 cm. Submitted in toto in B1. C. Received in formalin in a container labeled with the patient's name, date of , and random colonic biopsy are multiple murrieta-pink fragments of mucosal tissue measuring 1.1 x 1.0 x 0.3 cm in aggregate. Submitted in toto in C1. [facility] 01/06/2025 CPT:85620z7
--- NOTE | 2025-01-05 14:08 | PCM.PRE.AN2 ---
ASA Classification* ASA Classification ASA Classification: 3 Assessment & Plan Anesthesia* Anesthesia Assessment Anesthesia Assessment: Discussed sedation and/or anesthesia options, risks, benefits, and alternatives with patient/parents/legal guardian/POA. Questions invited. The patient/parents/legal guardian/POA seems to understand and agrees to proceed with anesthesia plan. Reviewed the physical assessment, medical history, allergy history and patient home medications list prior to surgery/procedure/anesthetic and documented any changes. Performed airway and anesthesia risk assessments. Anesthesia Type Anesthesia Type: MAC History Source History Obtained from:: Patient and Chart Anesthesia Focused Assessment* Temperature: 98.0 F Pulse Rate: 68 Blood Pressure: 108/59 Respiratory Rate: 18 Pulse Ox: 100 Oxygen Delivery Method: Room Air Airway Assessment Mouth opens: >3 cm Mallampati Score: I Teeth Condition: Missing (Patient has 1 missing top right molar. Rest are tight) Neck Range of motion (ROM): Full ROM Focused Labs Anesthesia Preop lab: CBC WBC 6.1 K/mm3 (4.4-11.0) 08/19/24 09:55 08/19/24 RBC 4.53 M/mm3 (4.2-5.4) 08/19/24 09:55 08/19/24 Hgb 13.7 g/dL (12.0-15.0) 08/19/24 09:55 08/19/24 Hct 42.1 % (37-47) 08/19/24 09:55 08/19/24 Plt Count 264 K/mm3 (150-450) 08/19/24 09:55 08/19/24 CHEMISTRY Potassium 4.2 mmol/L (3.5-5.1) 08/19/24 09:55 08/19/24 Sodium 139 mmol/L (136-145) 08/19/24 09:55 08/19/24 Magnesium 2.1 mg/dL (1.6-2.6) 10/01/17 06:30 10/01/17 Phosphorus 3.2 mg/dL (2.5-4.9) 02/13/22 13:57 02/13/22 BUN 32 mg/dL (7-18) H 08/19/24 09:55 08/19/24 Creatinine 0.75 mg/dL (0.55-1.02) 08/19/24 09:55 08/19/24 Glucose 91 mg/dL (74-106) 08/19/24 09:55 08/19/24 TSH 2.75 uIU/mL (0.358-3.74) 07/08/23 09:45 07/08/23 COAG Pre-Assessment Diagnosis/Proposed Procedure Planned Operative Procedure(s): COLONOSCOPY/EGD Anesthesia History Anesthesia History - supervisor bindery: Anesthesia History - supervisor bindery Hx Hospitalization No 12/31/24 12:08 Any Problems With Anesthesia No 12/31/24 12:08 Cholinesterase deficiency No 12/31/24 12:08 You/Your Family Experience No 12/31/24 12:08 fever (hyperthermia) with Relationship Recent Exposure to Contagious No 01/05/25 13:04 Disease Does patient have nerve Yes: BLADDER STIMULATOR 12/31/24 12:08 stimulator Patient instructed to have device shut off --Does patient have Pacemaker No 01/05/25 13:04 or ICD? When Was Last Pacemaker Check QUESTION #4 FULL TEXT: You/Your Family Experience fever (hyperthermia) with Anesthesia Last Oral Intake Last Oral intake: Last Oral Intake NPO since 10:00 01/05/25 13:04 Meds taken in AM with sips of No 01/05/25 13:04 water? Meds patient instructed to take am of surgery Any additional information?: Yes NPO since: 10:00 (Patient finished her prep at 10 AM.) PONV PONV - supervisor bindery: PONV - supervisor bindery Female Yes 12/31/24 12:08 HX of Motion Sickness No 12/31/24 12:08 HX of N/V After Surgery No 12/31/24 12:08 Non-Smoker Yes 12/31/24 12:08 Duration of Surgery greater No 12/31/24 12:08 than 60 minutes Number of Risk Factors 2 12/31/24 12:08 PONV Score Moderate Risk 12/31/24 12:08 Height & Weight Height & Weight: Anesthesia: Height & Weight Height 5 ft 1 in 01/05/25 13:04 Weight: 65.8 kg 01/05/25 13:04 Body Mass Index (BMI) 27.3 01/05/25 13:04 Respiratory Assessment Respiratory Assessment - supervisor bindery: Respiratory Tract Infection Hx - supervisor bindery Hx Respiratory Tract Infection No 12/31/24 12:08 STOP Sleep Apnea STOP Sleep Apnea - supervisor bindery: STOP Sleep Apnea - supervisor bindery Hx Hypertension No 12/31/24 12:08 Hx Sleep Apnea No 12/31/24 12:08 CPAP No 12/31/24 12:08 BIPAP Do you snore loudly (louder No 12/31/24 12:08 than talking or can be heard Do you often feel tired/ No 12/31/24 12:08 fatigued/ sleepy during daytime? Has anyone observed you stop No 12/31/24 12:08 breathing during sleep? STOP Results Negative 12/31/24 12:08 QUESTION #5 FULL TEXT : Do you snore loudly (louder than talking or can be heard through closed doors)? 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 Specify any problems Hx of Preganancy in last 3 No 12/31/24 12:08 Months Nurse Filling Out Transfusion VCHRISTIN 12/31/24 12:08 & Questions: Date: 12/31/24 12/31/24 12:08 Time: 12:09 12/31/24 12:08 Patient unable to answer at this time (ie. confused, unrespo /Reproduction History /Reproductive History - supervisor bindery: /Reproductive Hx- supervisor bindery Hx Now No 12/31/24 12:08 Gestational Age (in weeks): EDC: Hx Hx Para Hx Section SAB No 12/31/24 12:08 PFSH Medical History Wears glasses Post-menopausal Cancer History of steroid therapy High cholesterol History of hiatal hernia Non-smoker CPAP (continuous positive airway pressure) dependence Sleep apnea Leg cramps History of echocardiogram History of stress test Cardiology follow-up encounter Herpes simplex type 1 infection COVID-19 Osteopenia Tachycardia Hyperglycemia Carpal tunnel syndrome of left wrist Anxiety MVP (mitral valve prolapse) Vitamin D deficiency RLS (restless legs syndrome) Borderline hyperlipidemia Acute pain of left shoulder Osteoarthritis of left shoulder BMI 26.0-26.9,adult Contact with or suspected exposure to other viral communicable disease Weight gain Screening for malignant neoplasm of breast Pain of left femur Pain of left scapula Stress fracture TJ (obstructive sleep apnea) Severe persistent allergic asthma with acute exacerbation History of left breast cancer Hiatal hernia with GERD and esophagitis Chronic GERD Anemia Arthritis Fracture of ankle Thrombocytopenia Hypophosphatemia Aromatase inhibitor use Osteoporosis Asthma Cancer of left female breast Home Medications ?Medication ?Instructions ?Recorded ?Last Taken ?Type paroxetine HCl 20 mg tablet 20 mg PO DAILY depression 04/27/16 09/29/17 History ezetimibe 10 mg tablet 10 mg PO DAILY cholesterol 09/30/17 09/29/17 History benralizumab 30 mg/mL subcutaneous 30 mg subcut Q8W #1 mL 10/07/19 Unknown Rx syringe (Fasenra) calcitriol 0.25 mcg capsule 0.25 mcg PO DAILY 12/10/22 Unknown History cholecalciferol (vitamin D3) 125 125 mcg PO DAILY 12/10/22 Unknown History mcg (5,000 unit) capsule denosumab 60 mg/mL subcutaneous 60 mg subcut [id number] bone health 12/10/22 Unknown History syringe cetirizine 10 mg tablet 10 mg PO DAILY allergies #30 tabs 03/08/23 Unknown Rx glucosamine sulfate 500 mg tablet 500 mg PO QDAY 08/19/24 Unknown History (Glucosamine) magnesium oxide 400 mg PO QDAY 08/19/24 Unknown History melatonin 10 mg capsule 10 mg PO QHS 08/21/24 Unknown History budesonide-formoterol HFA 80 2 puff inhalation PRN shortness of 12/31/24 Unknown History mcg-4.5 mcg/actuation aerosol breath inhaler (Symbicort) Allergy/AdvReac Type Severity Reaction Status Date / Time ampicillin Allergy Severe Other Verified 01/05/25 13:03 cefaclor (From Ceclor) Allergy Severe Other Verified 01/05/25 13:03 ciprofloxacin (From Cipro) Allergy Severe Anaphylaxis Verified 01/05/25 13:03 ciprofloxacin HCl (From Allergy Severe Anaphylaxis Verified 01/05/25 13:03 Cipro) Penicillins Allergy Severe Other Verified 01/05/25 13:03 vancomycin Allergy Severe Swelling Verified 01/05/25 13:03 Family History Mother Rheumatoid arthritis Pulmonary embolism Phlebitis Father CHF (congestive heart failure) Alcohol abuse Hypertension Sister Diabetes Phlebitis Rheumatoid arthritis Grandmother Heart disease Grandfather Heart disease Surgical History Hx of eye surgery Hx of foot surgery History of bladder surgery History of right hip replacement History of left hip replacement History of repair of hiatal hernia Hx of bilateral cataract extraction Hx of tubal ligation Hx of hysterectomy Hx of dilation and curettage History of lumpectomy of left breast (~05/2017) Hx of colonoscopy History of esophagogastroduodenoscopy (EGD) Post corneal transplant S/P breast biopsy, left Social History Smoking Status: Never smoker second hand exposure: No alcohol intake: never substance use type: does not use caffeine: Yes what type of physical activity do you participate in: none cely/congregation: Hoahaoism seatbelt use: always do you feel safe at home: Yes additional social history: - [place]aro Review of Systems (Anesthesia) ROS Narrative System reviewed and no additional complaints, except as documented. Physical Exam Resp clear to auscultation bilaterally
--- NOTE | 2025-01-05 14:15 | HP.PCM_ITS ---
[facility] - General General Date of Admission: 01/05/25 Date of Service: 01/05/25 Chief Complaint: abdominal pain, bloating and constipation [facility] Narrative HEIKE ARROYO, is a 69 F who presents for the evaluation of abdominal pain, bloating and constipation Pt has been struggling with constipation for 6 years every since being diagnosed with breast cancer. She is on calcium and she feels this is a factor. She has daily bowel movements but they are small and hard. She does not feel she is fully evacuating. She has tried colace before but this just made her stools sticky. She has had heartburn for a long time with a hiatal hernia surgery a few years ago. She is not currently on PPI therapy. She only has intermittent heartburn but has complaints of upper abd bloating. She feels like she gets full quickly. She eats a well balanced diet with fruits, veggies and meat. Her last colonoscopy was about 10 years ago and last EGD was a few years ago. [facility] Medical History Wears glasses Post-menopausal Cancer History of steroid therapy High cholesterol History of hiatal hernia Non-smoker CPAP (continuous positive airway pressure) dependence Sleep apnea Leg cramps History of echocardiogram History of stress test Cardiology follow-up encounter Herpes simplex type 1 infection COVID-19 Osteopenia Tachycardia Hyperglycemia Carpal tunnel syndrome of left wrist Anxiety MVP (mitral valve prolapse) Vitamin D deficiency RLS (restless legs syndrome) Borderline hyperlipidemia Acute pain of left shoulder Osteoarthritis of left shoulder BMI 26.0-26.9,adult Contact with or suspected exposure to other viral communicable disease Weight gain Screening for malignant neoplasm of breast Pain of left femur Pain of left scapula Stress fracture TJ (obstructive sleep apnea) Severe persistent allergic asthma with acute exacerbation History of left breast cancer Hiatal hernia with GERD and esophagitis Chronic GERD Anemia Arthritis Fracture of ankle Thrombocytopenia Hypophosphatemia Aromatase inhibitor use Osteoporosis Asthma Cancer of left female breast Home Medications ?Medication ?Instructions ?Recorded ?Last Taken ?Type paroxetine HCl 20 mg tablet 20 mg PO DAILY depression 04/27/16 09/29/17 History ezetimibe 10 mg tablet 10 mg PO DAILY cholesterol 0 09/30/17 09/29/17 History benralizumab 30 mg/mL subcutaneous 30 mg subcut Q8W #1 mL 10/07/19 Unknown Rx syringe (Fasenra) calcitriol 0.25 mcg capsule 0.25 mcg PO DAILY 12/10/22 Unknown History cholecalciferol (vitamin D3) 125 125 mcg PO DAILY 11/15 04/07 Unknown History mcg (5,000 unit) capsule denosumab 60 mg/mL subcutaneous 60 mg subcut [id number] bone health 12/10/22 Unknown History syringe cetirizine 10 mg tablet 10 mg PO DAILY allergies #30 tabs 03/08/23 Unknown Rx glucosamine sulfate 500 mg tablet 500 mg PO QDAY 08/19 Unknown History (Glucosamine) magnesium oxide 400 mg PO QDAY 08/19/24 Unkn own History melatonin 10 mg capsule 10 mg PO QHS 08/21/24 Unknow n History budesonide-formoterol HFA 80 2 puff inhalation PRN jaya rtness of 12/31/24 Unknown History mcg-4.5 mcg/actuation aerosol breath inhaler (Symbicort) Allergy/AdvReac Type Severity Reaction Status Date / Time ampicillin Allergy Severe Other Verified 01/05/25 13:03 cefaclor (From Ceclor) Allergy Severe Other Verified 01/05/25 13:03 ciprofloxacin (From Cipro) Allergy Severe Anaphylaxis Verified 01/05/25 13:03 ciprofloxacin HCl (From Allergy Severe Anaphylaxis Verified 01/05/25 13:03 Cipro) Penicillins Allergy Severe Other Verified 01/05/25 13:03 vancomycin Allergy Severe Swelling Verified 01/05/25 13:03 Family History Mother Rheumatoid arthritis Pulmonary embolism Phlebitis Father CHF (congestive heart failure) Alcohol abuse Hypertension Sister Diabetes Phlebitis Rheumatoid arthritis Grandmother Heart disease Grandfather Heart disease Surgical History Hx of eye surgery Hx of foot surgery History of bladder surgery History of right hip replacement History of left hip replacement History of repair of hiatal hernia Hx of bilateral cataract extraction Hx of tubal ligation Hx of hysterectomy Hx of dilation and curettage History of lumpectomy of left breast (~05/2017) Hx of colonoscopy History of esophagogastroduodenoscopy (EGD) Post corneal transplant S/P breast biopsy, left Social History Smoking Status: Never smoker second hand exposure: No alcohol intake: never substance use type: does not use caffeine: Yes what type of physical activity do you participate in: none cely/rastafarian: [employer] seatbelt use: always do you feel safe at home: Yes additional social history: - Genaro SHANKAR Constitutional Constitutional: Denies fatigue, fever(s), poor appetite, weight gain or weight loss Gastrointestinal Gastrointestinal: Denies belching, bloating, change in bowel habits, change in stool character, chewing difficulty, coffee ground emesis, constipation, cramping, diarrhea, dyspepsia, dysphagia, early satiety, excessive flatus, fecal incontinence, heartburn, hematemesis, hematochezia, hemorrhoids, loose stools, melena, nausea, odynophagia, rectal bleeding, tenesmus, vomiting or weight changes Vital Signs Vital Signs Vital Signs: 01/05/25 13:04 01/05/25 13:04 Temperature 98.0 F Temperature Source Temporal Pulse Rate 68 Respiratory Rate 18 Respiratory Pattern Normal Blood Pressure 108/59 L Blood Pressure Mean 75 Blood Pressure Source Monitor Blood Pressure Position Supine Blood Pressure Location Right Arm Pulse Ox 100 Oxygen Delivery Method Room Air Weight Weight: 145 lb 1.027 oz Body Mass Index (BMI) 27.3 Physical Exam Resp clear to auscultation bilaterally Assessment & Plan Assessment/Plan (1) Abdominal bloating: (2) Constipation: PLAN: (1) Abdominal pain: (2) Chronic GERD: Status: Chronic Plan: This is a 69 yo female pt here today for evaluation of constipation and upper abd bloating. She has a hx of breast cancer and osteoporosis. Her constipation started after her diagnosis of cancer 6 years ago. She prefers to not use medications as it makes her stools sticky. She will undergo colonoscopy to assess her constipation and for screening as she is due. We will consider treatment pending this. She has complaints of band like pain/bloating in her epigastric region and intermittent heartburn. Will order GES and EGD to assess this. -Colonoscopy and EGD -GES -Consider treatment pending results (3) Constipation: Status: Acute (4) Abdominal bloating: Status: Acute Orders: Orders Gastric Emptying Study Today K59.00 - Constipation, unspecified, R14.0 - Abdominal distension (gaseous)
--- NOTE | 2025-01-05 14:49 | PCM.POST.ANE ---
Anesthesia: Postop Eval I Current Vital Signs Oxygen Delivery Method: Room Air Assessment Airway patent: Yes Spontaneous unlabored respirations: Yes Mental status: Awake nausea: No Vomiting: No Anesthesia Complication: No Fluid Hydration Crystalloid volume administer (ml): 10 Total IV fluid infused: 10 Progress Note Anesthesia document: Postop Eval 1 completed: Yes
--- NOTE | 2025-01-05 15:12 | PCM.POST.ANE ---
Anesthesia: Postop Eval I Current Vital Signs Temperature: 96.2 F Pulse Rate: 60 Blood Pressure: 95/60 Respiratory Rate: 18 Pulse Ox: 97 Oxygen Delivery Method: Room Air Assessment Airway patent: Yes Spontaneous unlabored respirations: Yes Mental status: Awake nausea: No Vomiting: No Anesthesia Complication: No Fluid Hydration Crystalloid volume administer (ml): 10 Total IV fluid infused: 10 Progress Note Anesthesia document: Postop Eval 1 completed: Yes
--- NOTE | 2025-01-05 15:13 | OP.EGD_ITS ---
Patient Name: Kenya Koch Procedure Date: 01/05/2025 2:20 PM Date of : 1955 Age: 69 Procedure: Upper GI endoscopy Indications: Epigastric abdominal pain, Heartburn Providers: Nicola Galvan DO Referring MD: Genesis Baldwin Medicines: Monitored Anesthesia Care Patient Profile: This is a 69 year old female. Refer to note in patient chart for documentation of history and physical. Patient has symptoms of chronic dyspepsia and chronic heartburn. Complications: No immediate complications. Procedure: Pre-Anesthesia Assessment: - Prior to the procedure, a History and Physical was performed, and patient medications and allergies were reviewed. The patient is competent. The risks and benefits of the procedure and the sedation options and risks were discussed with the patient. All questions were answered and informed consent was obtained. Patient identification and proposed procedure were verified by the physician in the pre-procedure area. Mental Status Examination: alert and oriented. Airway Examination: normal oropharyngeal airway and neck mobility. Respiratory Examination: clear to auscultation. CV Examination: normal. Prophylactic Antibiotics: The patient does not require prophylactic antibiotics. Prior Anticoagulants: The patient has taken no anticoagulant or antiplatelet agents except for NSAID medication. ASA Grade Assessment: II - A patient with mild systemic disease. After reviewing the risks and benefits, the patient was deemed in satisfactory condition to undergo the procedure. The anesthesia plan was to use monitored anesthesia care (MAC). Immediately prior to administration of medications, the patient was re-assessed for adequacy to receive sedatives. The heart rate, respiratory rate, oxygen saturations, blood pressure, adequacy of pulmonary ventilation, and response to care were monitored throughout the procedure. The physical status of the patient was re-assessed after the procedure. After obtaining informed consent, the endoscope was passed under direct vision. Throughout the procedure, the patient's blood pressure, pulse, and oxygen saturations were monitored continuously. The Colonoscope was introduced through the mouth, and advanced to the third part of the duodenum. Small bowel enteroscopy was deemed necessary. The upper GI endoscopy was accomplished without difficulty. The patient tolerated the procedure well. Scope In: 2:35:41 PM Scope Out: 2:42:41 PM Total Procedure Duration Time 0 hours 7 minutes 0 seconds Findings: The Z-line was irregular and was found 40 cm from the incisors. A medium-sized hiatal hernia was present. Evidence of a Dehisced fundoplication was found in the gastric fundus. [Wrap Tightness]. [Traversed]. Localized mildly erythematous mucosa without bleeding was found in the gastric body. Biopsies were taken with a cold forceps for histology. Biopsies were taken with a cold forceps for Helicobacter pylori testing. Verification of patient identification for the specimen was done. Estimated blood loss was minimal. No gross lesions were noted in the entire examined duodenum. Biopsies were taken with a cold forceps for histology. Verification of patient identification for the specimen was done. Estimated blood loss was minimal. Impression: - Z-line irregular, 40 cm from the incisors. - Medium-sized hiatal hernia. - A was found. The wrap appears not intact. - Erythematous mucosa in the gastric body. Biopsied. - No gross lesions in the entire examined duodenum. Biopsied. Recommendation: - Discharge patient to home. - Resume previous diet. - Continue present medications. - Await pathology results. Procedure Code(s): --- Professional --- 27999, Small intestinal endoscopy, enteroscopy beyond second portion of duodenum, not including ileum; with biopsy, single or multiple CPT copyright 2021 [employer]. All rights reserved. The codes documented in this report are preliminary and upon manager of transportation review may be revised to meet current compliance requirements. Nicola Galvan DO 01/05/2025 3:13:21 PM This report has been signed electronically. Number of Addenda: 0 Note Initiated On: 01/05/2025 2:20 PM
--- NOTE | 2025-01-05 15:14 | OP.CCLET_ITS ---
01/05/2025 Genesis Baldwin [address] [place] [address] Re : Upper GI endoscopy procedure for Kenya Koch Dear Dr. Baldwin This procedure was performed on Sunday, January 05, 2025. My impressions and recommendations are as follows: Impressions : - Z-line irregular, 40 cm from the incisors. - Medium-sized hiatal hernia. - A was found. The wrap appears not intact. - Erythematous mucosa in the gastric body. Biopsied. - No gross lesions in the entire examined duodenum. Biopsied. Recommendations : - Discharge patient to home. - Resume previous diet. - Continue present medications. - Await pathology results. My findings are described in the full procedure note, which is enclosed. If I can be of further assistance, please feel free to contact me at . Sincerely, Nicola Galvan, 01/05/2025 3:13:21 PM This report has been signed electronically.
--- NOTE | 2025-01-05 15:16 | OP.CCLET_ITS ---
01/05/2025 Genesis Baldwin [address] [place] [address] Re : Colonoscopy procedure for Kenya Koch Dear Dr. Baldwin This procedure was performed on Sunday, January 05, 2025. My impressions and recommendations are as follows: Impressions : - Congested mucosa in the recto-sigmoid colon, in the sigmoid colon and in the transverse colon. Biopsied. - The examined portion of the ileum was normal. Biopsied. Recommendations : - Discharge patient to home. - Resume previous diet. - Continue present medications. - Await pathology results. - Repeat colonoscopy for surveillance based on pathology results. My findings are described in the full procedure note, which is enclosed. If I can be of further assistance, please feel free to contact me at . Sincerely, Nicola Galvan, 01/05/2025 3:15:49 PM This report has been signed electronically.
--- NOTE | 2025-01-05 15:16 | OP.COLON_ITS ---
Patient Name: Kenya Koch Procedure Date: 01/05/2025 2:43 PM Date of : 1955 Age: 69 Procedure: Colonoscopy Indications: Clinically significant diarrhea of unexplained origin Providers: Nicola Galvan DO Referring MD: Genesis Baldwin Medicines: Monitored Anesthesia Care Patient Profile: This is a 69 year old female. Refer to note in patient chart for documentation of history and physical. Patient has symptoms of chronic dyspepsia and chronic heartburn. Last Colonoscopy: date unknown. Complications: No immediate complications. Procedure: Pre-Anesthesia Assessment: - Prior to the procedure, a History and Physical was performed, and patient medications and allergies were reviewed. The patient is competent. The risks and benefits of the procedure and the sedation options and risks were discussed with the patient. All questions were answered and informed consent was obtained. Patient identification and proposed procedure were verified by the physician in the pre-procedure area. Mental Status Examination: alert and oriented. Airway Examination: normal oropharyngeal airway and neck mobility. Respiratory Examination: clear to auscultation. CV Examination: normal. Prophylactic Antibiotics: The patient does not require prophylactic antibiotics. Prior Anticoagulants: The patient has taken no anticoagulant or antiplatelet agents except for NSAID medication. ASA Grade Assessment: II - A patient with mild systemic disease. After reviewing the risks and benefits, the patient was deemed in satisfactory condition to undergo the procedure. The anesthesia plan was to use monitored anesthesia care (MAC). Immediately prior to administration of medications, the patient was re-assessed for adequacy to receive sedatives. The heart rate, respiratory rate, oxygen saturations, blood pressure, adequacy of pulmonary ventilation, and response to care were monitored throughout the procedure. The physical status of the patient was re-assessed after the procedure. After I obtained informed consent, the scope was passed under direct vision. Throughout the procedure, the patient's blood pressure, pulse, and oxygen saturations were monitored continuously. The Colonoscope was introduced through the anus and advanced to the terminal ileum. The colonoscopy was performed without difficulty. The patient tolerated the procedure well. The quality of the bowel preparation was adequate. The terminal ileum, ileocecal valve, appendiceal orifice, and rectum were photographed. Scope In: 2:45:03 PM Scope Withdrawal Time 0 hours 12 minutes 11 seconds Scope Out: 3:02:04 PM Total Procedure Duration Time 0 hours 17 minutes 1 second Findings: The perianal and digital rectal examinations were normal. An area of mildly congested mucosa was found in the recto-sigmoid colon, in the sigmoid colon and in the transverse colon. Biopsies were taken with a cold forceps for histology. Verification of patient identification for the specimen was done. Estimated blood loss was minimal. The terminal ileum appeared normal. Biopsies were taken with a cold forceps for histology. Verification of patient identification for the specimen was done. Estimated blood loss was minimal. Impression: - Congested mucosa in the recto-sigmoid colon, in the sigmoid colon and in the transverse colon. Biopsied. - The examined portion of the ileum was normal. Biopsied. Recommendation: - Discharge patient to home. - Resume previous diet. - Continue present medications. - Await pathology results. - Repeat colonoscopy for surveillance based on pathology results. Procedure Code(s): --- Professional --- 97559, Colonoscopy, flexible; with biopsy, single or multiple CPT copyright 2021 [employer]. All rights reserved. The codes documented in this report are preliminary and upon social services coordinator review may be revised to meet current compliance requirements. Nicola Galvan DO 01/05/2025 3:15:49 PM This report has been signed electronically. Number of Addenda: 0 Note Initiated On: 01/05/2025 2:43 PM
--- NOTE | 2025-01-05 20:24 | POSTOPAN2_ITS ---
Anesthesia Postop Eval I Sum Postop Eval Completion status Anesthesia document: Postop Eval 1 completed: Yes Anesthesia Postop Eval I Summary Anesthesia Postop Eval I Summary: Anesthesia Postop Eval I: Assessment Summary Airway patent Yes 01/05/25 15:12 TRUST [email or web address] Spontaneous unlabored Yes 01/05/25 15:12 TRUST MAIL [email or web address] respirations Mental status Awake 01/05/25 15:12 TRUST MAIL [email or web address] nausea No 01/05/25 15:12 TRUST MAIL [email or web address] Vomiting No 01/05/25 15:12 TRUST MAIL [email or web address] Anesthesia Postop Eval I: Fluid Summary Crystalloid volume administer 10 01/05/25 15:12 TRUST MAIL [email or web address] (ml) Colloids volume administered ( ml) Blood Product volume administered (ml) Total IV fluid infused 10 01/05/25 15:12 TRUST MAIL [email or web address] Anesthesia Postop Eval I: Summary Notes Anesthesia Complication No 01/05/25 15:12 TRUST MAIL [email or web address] Anesthesia Complication Comment: Post-operative progress note Anesthesia: Postop Eval II Evaluation Mental status: Awake and Calm Pain Level: 0 nausea: No Vomiting: No Complications Anesthesia Complication: No
--- NOTE | 2025-01-05 20:24 | PCM.POSTANE2 ---
Anesthesia Postop Eval I Sum Postop Eval Completion status Anesthesia document: Postop Eval 1 completed: Yes Anesthesia Postop Eval I Summary Anesthesia Postop Eval I Summary: Anesthesia Postop Eval I: Assessment Summary Airway patent Yes 01/05/25 15:12 UNCLAIMED PROPERTY [email or web address] Spontaneous unlabored Yes 01/05/25 15:12 UNCLAIMED PROPERTY MANAGER.[email or web address] respirations Mental status Awake 01/05/25 15:12 UNCLAIMED PROPERTY [email or web address] nausea No 01/05/25 15:12 UNCLAIMED PROPERTY [email or web address] Vomiting No 01/05/25 15:12 UNCLAIMED PROPERTY MANAGER.[email or web address] Anesthesia Postop Eval I: Fluid Summary Crystalloid volume administer 10 01/05/25 15:12 UNCLAIMED PROPERTY MANAGER.[email or web address] (ml) Colloids volume administered ( ml) Blood Product volume administered (ml) Total IV fluid infused 10 01/05/25 15:12 UNCLAIMED PROPERTY MANAGER.HBARR Anesthesia Postop Eval I: Summary Notes Anesthesia Complication No 01/05/25 15:12 UNCLAIMED PROPERTY MANAGER.[email or web address] Anesthesia Complication Comment: Post-operative progress note Anesthesia: Postop Eval II Evaluation Mental status: Awake and Calm Pain Level: 0 nausea: No Vomiting: No Complications Anesthesia Complication: No
== END 2025-01-05 16:14 | disposition home or self-care (01) ==
LOC: EN 12:38 → AC 12:39
PROVIDERS: PCP Internal Medicine; Referring Provider Internal Medicine; Visit Provider Internal Medicine Gastroenterology
PROC: 0DJD8ZZ Inspection of Lower Intestinal Tract, Via Natural or Artificial Opening Endoscopic (ICD-10-PCS; CPT 45378; principal; 2025-01-05 13:40)
DX: K22.70 Barrett's esophagus without dysplasia (principal); K44.9 Diaphragmatic hernia without obstruction or gangrene; K59.00 Constipation, unspecified; K21.9 Gastro-esophageal reflux disease without esophagitis; E78.00 Pure hypercholesterolemia, unspecified; J45.909 Unspecified asthma, uncomplicated; Z85.3 Personal history of malignant neoplasm of breast; M81.0 Age-related osteoporosis without current pathological fracture
CPT/HCPCS: 45380; 43239; 88305; A4216

== ENCOUNTER 2025-02-05 10:01 | Outpatient (CLI) | payer MEDICARE, OTHER, SELFPAY ==
[2024-05-21 10:52] VITALS: BMI 24.0
[2025-02-05 10:05] VITALS: BP 104/67; PULSE 79; RESP 16; TEMP 36.1; O2SAT 98; BMI 27.3
[2025-02-05] MEDS: Benralizumab 30 MG/ML Syringe SC (10:28)
== END 2025-02-05 23:59 | disposition home or self-care (01) ==
LOC: MEDOUTP 10:02
PROVIDERS: PCP Internal Medicine; Referring Provider Nurse Practitioner Acute Care; Visit Provider Nurse Practitioner Acute Care
DX: J45.50 Severe persistent asthma, uncomplicated (principal)
CPT/HCPCS: 96372; J0517

== ENCOUNTER 2025-03-17 07:00 | Outpatient (RCR) | payer MEDICARE, OTHER, SELFPAY ==
[2024-05-21 10:52] VITALS: BMI 24.0
--- NOTE | 2025-02-17 16:51 | HP.PTEVAL ---
Patient's Visit Information Visit Information Visit Information: HEIKE ARROYO is a 69 year old F referred to Physical Therapy by BELL Hairston with a diagnosis of L THR, L psoas tendonitis, L SI pain, L trochanter bursitis. Date of Evaluation: 02/17/25 Physical Therapist: Rowena Gallegos MPT Visit Plan Frequency: 2x /Week Duration: 6 Weeks Plan: When I looked at PSIS in prone pt L PSIS was inferior and in supine the ASIS on the L was higher.... Had the patient so some hooklying R HS heel digs X 10, Bridges X 10 to end range, X 5 Isometirc Add and abd... then tested standing L hip flexion and she was able to hip flex with less pain on the L and she was able to tolerate more WB on the L LE. Sent her home with Prone HS curls to work on her tight Quads (she was painful with this and told her to go at her own pace) and end range bridges. 2X/ week for 6 weeks to work on increasing Psoas/Quad (minding the L THR) AROM/flexibility, HS strength and glut strength, core stability with HEP Subjective Subjective: Pt reports that she had her hip replacement for 6 year now. She had PT but could not do the therapy and went back to and gave her a shot and that lasted 2 years. She can walk fine. She can sit fine. Going up steps is hard because she can not hip flex without pain. She has pain in her SI joint now on the L and thinks that part of her tendon is causing her groin pain. Pt can lift her L leg into hip flexion using her hand but can not actively do it without pain. wanted to try PT first before another shot. She keeps trying to move it but it hurt so much the next day. On the stairs her pain would be 4/10 and that is in the groin and in the back. Pain L groin pain: Pain Intensity (Out of 10): 0 L SI pain: Pain Intensity (Out of 10): 0 Objective Objective: Gait: walks with decrease stance time on the L LE and decrease step length and decrease hip extension Pt is able to heel and toe raise B with some UE support Trunk AROM: flex 75%, EXT 50% and SB R 50% (all increase pain) and SB L 50% LE MMT: R hip flex 15.5 and L 7.7 R knee ext 17.3 and L 20.5 R knee flex 14.7 and L 11 R hip abd 11.6 and L 8.3 R hip ext 10 and L 7.3 Bridge 1/2 normal ROM Pt has tight L hamstring and hip flexor (being careful of L hip replacement) When I looked at PSIS in prone pt L PSIS was inferior and in supine the ASIS on the L was higher.... Had the patient so some hooklying R HS heel digs X 10, Bridges X 10 to end range, X 5 Isometirc Add and abd... then tested standing L hip flexion and she was able to hip flex with less pain on the L and she was able to tolerate more WB on the L LE. Balance/Special Test Scores Lower Extremity Functional Score: 25 Goals Goal 1:: I HEP Goal Time Frame: 6-8 Weeks Goal 2:: Be able to walk with equal stance time on B LE and increase hip extension with each stride Goal Time Frame: 6-8 Weeks Goal 3:: Be able to perform hip flexion AROM in standing on the L with no pain Goal Time Frame: 6-8 Weeks Goal 4:: Be able to go up and down the steps recip with no pain Goal Time Frame: 6-8 Weeks Rehabilitation Potential Rehabilitation Potential: Good Anticipated Interventions Patient/Client Instruction: Educate patient on: Condition and Plan of Care For the Purpose of:: To decrease pain, To increase ROM, To improve nutrient delivery to tissue, To improve muscle performance and motor function, To improve ability to perform ADL's, To increase tolerance to activity/condition/position, To improve performance and independence with ADL's, To decrease level of supervision to perform tasks, To improve ability of physical actions for home/community/work/leisure, To improve gait and locomotor functions, To improve health of tissue, To decrease soft tissue restriction and To increase flexibility/ROM Therapeutic Exercise to Include: Strength training, Endurance training, Postural training, Flexibilty training, Gait and locomotor training, Passive ROM and Active ROM For the Purpose of:: To decrease pain, To increase ROM, To improve nutrient delivery to tissue, To improve muscle performance and motor function, To increase tolerance to activity/condition/position, To improve performance and independence with ADL's, To decrease level of supervision to perform tasks, To improve ability of physical actions for home/community/work/leisure, To improve gait and locomotor functions, To improve health of tissue, To decrease soft tissue restriction and To increase flexibility/ROM Functional Training to Include: Gait training For the Purpose of:: To improve gait and locomotor functions Manual Therapy Techniques to Include: Passive ROM and Soft tissue mobilization For the Purpose of:: To decrease pain, To increase ROM, To improve nutrient delivery to tissue, To improve muscle performance and motor function, To improve ability to perform ADL's, To increase tolerance to activity/condition/position, To improve performance and independence with ADL's, To improve gait and locomotor functions, To improve health of tissue, To decrease soft tissue restriction, To increase flexibility/ROM and To improve safety with gait Text: Thank you for the opportunity to evaluate your patient. For Medicare and Medicare HMO plans, please review the plan of care and approve it. It will need to be FAXED BACK to us at [phone] for Medicare purposes. For Medicare only, by signing this I certify the plan of care. Please let me know if there are questions or concerns regarding this plan of care. Physician Signature: Date:
--- NOTE | 2025-03-17 07:53 | HP.PTDCSUM ---
Discharge Summary D/C summary: It has been my pleasure to treat HEIKE ARROYO referred by BELL Hairston, with the diagnosis of L THR, L psoas tendonitis, L SI pain, L trochanter bursitis for a total of 9 visit(s). Discharge Date: 03/17/25 Please see the following information for a summary of their discharge status. Subjective Subjective: Pt reports that she is doing her exercises at home but it only lasts about a day or so. The massage helps but it is back to where it is the next day. The tendon is not going back into place. She has groin pain and goes down to the knee. Pain L groin pain: Pain Intensity (Out of 10): 3 L SI pain: Pain Intensity (Out of 10): 3 Overall Improvement % Improvement: 0 Objective Objective/Function: Standing hip flexion increase pain in L groin Standing hip flexion and ER increased groin pain and hurt afterward. Gait: increase pain when walking with increase stride and increase pain after walking with greater strides Pt had increase pain after doing the above Goals Goal 1:: I HEP Goal Progress: Goal Met Goal 2:: Be able to walk with equal stance time on B LE and increase hip extension with each stride Goal Progress: Progressing Goal 3:: Be able to perform hip flexion AROM in standing on the L with no pain Goal 4:: Be able to go up and down the steps recip with no pain Goal Progress: Progressing Plan Plan: Return back to for Reassessment due to zero improvement. Pt is no better and is doing her HEP as well. D/C Information Discharge Comments: DC PT back to . d/c sentence: If there are questions or concerns regarding this patient's physical therapy, please feel free to call me at [phone]. Thank you for the referral of this patient. Sincerely, Rowena Gallegos, MPT Balance/Gait/Functional tests Balance/Special Test Scores Lower Extremity Functional Score: 32 Improvement % Improvement: 0
== END 2025-03-17 19:00 | disposition home or self-care (01) ==
LOC: PT 07:00
PROVIDERS: PCP Internal Medicine; Referring Provider Physician Assistant; Visit Provider Physician Assistant
DX: M76.12 Psoas tendinitis, left hip (principal); M53.3 Sacrococcygeal disorders, not elsewhere classified; M70.62 Trochanteric bursitis, left hip; Z96.642 Presence of left artificial hip joint
CPT/HCPCS: 97110; 97162; 97530

== ENCOUNTER 2025-04-02 10:31 | Outpatient (CLI) | payer MEDICARE, OTHER, SELFPAY ==
[2024-05-21 10:52] VITALS: BMI 24.0
[2025-04-02 10:37] VITALS: BP 97/60; PULSE 73; RESP 16; TEMP 35.6; O2SAT 98
== END 2025-04-02 23:59 | disposition home or self-care (01) ==
LOC: MEDOUTP 10:31
PROVIDERS: PCP Internal Medicine; Referring Provider Nurse Practitioner Acute Care; Visit Provider Nurse Practitioner Acute Care
DX: J45.50 Severe persistent asthma, uncomplicated (principal)
CPT/HCPCS: 96372; J0517

== ENCOUNTER 2025-05-28 12:38 | Outpatient (CLI) | payer MEDICARE, OTHER, SELFPAY ==
[2024-05-21 10:52] VITALS: BMI 24.0
[2025-05-28 12:45] VITALS: BP 107/61; PULSE 78; RESP 16; TEMP 36; O2SAT 97; BMI 24.7
== END 2025-05-28 23:59 | disposition home or self-care (01) ==
LOC: MEDOUTP 12:38
PROVIDERS: PCP Internal Medicine; Referring Provider Nurse Practitioner Acute Care; Visit Provider Nurse Practitioner Acute Care
DX: J45.50 Severe persistent asthma, uncomplicated (principal)
CPT/HCPCS: 96372; J0517

== ENCOUNTER 2025-06-25 11:10 | Outpatient (CLI) | payer MEDICARE, OTHER, SELFPAY ==
[2024-05-21 10:52] VITALS: BMI 24.0
[2025-06-25 11:37] VITALS: BP 109/61; PULSE 62; RESP 16; TEMP 35.8; O2SAT 94
[2025-06-25] MEDS: DENOSUMAB 60 MG/ML SC (11:38)
== END 2025-06-25 23:59 | disposition home or self-care (01) ==
LOC: MEDOUTP 11:10
PROVIDERS: PCP Internal Medicine; Referring Provider Internal Medicine; Visit Provider Internal Medicine
DX: M81.0 Age-related osteoporosis without current pathological fracture (principal)
CPT/HCPCS: 96372; J0897

== ENCOUNTER → 2025-07-12 | Outpatient (CLI) | payer MEDICARE, OTHER, SELFPAY ==
[2024-05-21 10:52] VITALS: BMI 24.0
--- NOTE | 2025-07-12 10:01 | BI_ITS ---
EXAM: SCRN MAMM (CAD)W/JANIE BILAT DATE: 07/12/2025 CLINICAL HISTORY: F, Age 70 y/o , SCREENING Personal history of left breast cancer. She had a lumpectomy with radiation therapy. TECHNIQUE: Procedure Code: [id number] Modality: MG Procedure: SCRN MAMM (CAD)W/JANIE BILAT COMPARISON: Prior exam(s) dated 07/09/2024, 07/08/2023. FINDINGS: TISSUE DENSITY: There are scattered areas of fibroglandular density. Bilateral Breast Mammographic Findings: No significant masses, calcifications or other abnormalities are identified in the right breast. Benign round microcalcifications and macrocalcifications are seen in the right breast. A stable 6 mm nodular masslike density is seen in the medial aspect of the right breast. Stable architectural distortion, increased density and dystrophic type calcifications as well as surgical clips are seen in the superior outer, far posterior aspect of the left breast at the post lumpectomy and postradiation site. This area appears stable. There is a cluster of benign-appearing round and punctate calcifications in the superior outer, junction of the anterior middle 3rd aspect of the left breast. They appear to represent dystrophic type calcifications or degenerating fibroadenoma. Benign round calcifications are seen elsewhere in the breast. There are no suspicious masses or suspicious calcifications in the left breast. There is no mammographic abnormality in the left breast to suggest new or recurrent malignancy. BI/SCRN MAMM (CAD)W/JANIE BILAT IMPRESSION: Benign screening mammogram OVERALL FINAL ASSESSMENT BI-RADS 2: BENIGN RECOMMENDATION: Routine annual follow-up in 1 Year Additional Recommendation none A letter with findings and recommendations will be mailed to the patient. Reading Location: [id number]
== END | disposition home or self-care (01) ==
LOC: OPBI 10:00
PROVIDERS: PCP Internal Medicine; Referring Provider Internal Medicine Hematology & Oncology; Visit Provider Internal Medicine Hematology & Oncology
DX: Z12.31 Encounter for screening mammogram for malignant neoplasm of breast (principal)
CPT/HCPCS: 77063; 77067

== ENCOUNTER → 2025-07-22 | Outpatient (CLI) | payer MEDICARE, OTHER, SELFPAY ==
[2024-05-21 10:52] VITALS: BMI 24.0
--- NOTE | 2025-07-22 11:23 | RAD_ITS ---
PROCEDURE: HAND 2 VIEWS 07/22/2025 REASON FOR EXAM: HAND PAIN , BONY DEFORMITY AND ULNAR DEVIATIONON R TECHNIQUE: Procedure Code: RADHAND 2V Modality: DX Procedure: HAND 2 VIEWS Laterality: Right hand COMPARISON: None FINDINGS: Bones: No fracture is seen. Joints: Joint space narrowing of the proximal and distal interphalangeal joints worse along the distal interphalangeal joint of the 3rd digit with overlying soft tissue swelling in keeping with osteoarthritis. Mild degree of degenerative changes at the 1st carpometacarpal joint. Soft tissues: Mild soft tissue swelling. Other: RAD/Hand 2 Views IMPRESSION: DEGENERATIVE OSTEOARTHROSIS. NO ACUTE FINDINGS. Reading Location: [facility]
== END | disposition home or self-care (01) ==
LOC: MTRAD 11:23
PROVIDERS: PCP Internal Medicine; Referring Provider Internal Medicine; Visit Provider Internal Medicine
DX: M79.641 Pain in right hand (principal); M79.642 Pain in left hand
CPT/HCPCS: 73120

== ENCOUNTER 2025-07-23 11:54 | Outpatient (CLI) | payer MEDICARE, OTHER, SELFPAY ==
[2024-05-21 10:52] VITALS: BMI 24.0
[2025-07-23 12:11] VITALS: BP 110/67; PULSE 69; RESP 16; TEMP 36.1; O2SAT 95; BMI 24.3
== END 2025-07-23 23:59 | disposition home or self-care (01) ==
LOC: MEDOUTP 11:54
PROVIDERS: PCP Internal Medicine; Referring Provider Nurse Practitioner Acute Care; Visit Provider Nurse Practitioner Acute Care
DX: J45.50 Severe persistent asthma, uncomplicated (principal)
CPT/HCPCS: 96372; J0517

== ENCOUNTER → 2025-08-31 | Outpatient (CLI) | payer MEDICARE, OTHER, SELFPAY ==
[2024-05-21 10:52] VITALS: BMI 24.0
[2025-08-31 10:30] LABS: CRP < 3.00 mg/L (0.0-3.0)
== END | disposition home or self-care (01) ==
LOC: CIMLAB 08:32
PROVIDERS: PCP Internal Medicine; Referring Provider Internal Medicine; Visit Provider Internal Medicine
DX: M79.641 Pain in right hand (principal); M79.642 Pain in left hand
CPT/HCPCS: 36415; 85652; 86140; 86200; 86431

== ENCOUNTER → 2025-09-07 | Outpatient (CLI) | payer MEDICARE, OTHER, SELFPAY ==
[2024-05-21 10:52] VITALS: BMI 24.0
--- NOTE | 2025-09-07 12:10 | NEURO ---
NCS and/or EMG Patient Report Ordering Doctor: Genesis Baldwin DATE OF SERVICE: 09/07/25 Clinical Summary: 70 year old female patient with symptoms of numbness and tingling in the left hand. Nerve Conduction Studies Summary: Nerve conduction studies were performed in the left upper extremity. The left median-D2 SNAP distal latency was prolonged. The left ulnar-D5 SNAP distal latency was prolonged. Needle Examination Summary: Needle examination of the left upper extremity demonstrated a higher proportion of motor unit action potentials with reduced recruitment, increased amplitude, increased duration, and polyphasia in the left extensor indicis proprius, flexor digitorum interosseous, and abductor pollicis brevis muscles. Impression: This is an abnormal study. There is electrodiagnostic evidence of the following - 1) Severe, left median mononeuropathy at the wrist (carpal tunnel syndrome), with secondary motor fiber axonal loss 2) Chronic, left C8 radiculopathy Multi Select Codes Neurology Neurology Interp Codes: 80969-00 Musc test done w/n test comp (interp) (1) and 58283-09 Nrv cndj test 7-8 studies (interp)
== END | disposition home or self-care (01) ==
LOC: PSN 09:20
PROVIDERS: PCP Internal Medicine; Referring Provider Internal Medicine; Visit Provider Internal Medicine
DX: G56.02 Carpal tunnel syndrome, left upper limb (principal); M79.602 Pain in left arm; R20.2 Paresthesia of skin
CPT/HCPCS: 95886; 95910